=== PATIENT | female | born 1945 | race Caucasian/White ===

== ENCOUNTER 2020-07-06 04:44 | Observation (INO) ==
[2020-07-06] MEDS ORDERED: ALBUT/IPRATROP 3MG/0.5MG NEB 3 ML VIAL NEB STA (05:00)
--- NOTE | 2020-07-06 05:03 | Emergency Department Note ---
Impression & Plan Respiratory difficulty, Heart palpitations, Hypoxia ED Provider Note Name: WILLIAM HUERTAS Age: 75 Sex: F Arrives Via: Walk-In Informant: Patient ED Provider: Darrell Sifuentes MD Chief Complaint: Shortness of breath Impression: Respiratory Difficulty Palpations Hypoxia Medical Decision Makin yr old female with history idiopathic cardiomyopathy (recent EF 45%), LBBB, Hyperlipidemia, Ventricular Ectopy, Oleoarthrosis, IBS who arrives for evaluation of relatively rapidly worsening shortness of breath over the last evening. She has some diffuse wheezing and crackles on exam with HTN though sats OK on arrival. Given duoneb with mild improvement though still shortness of breath. CXR with diffuse infiltrate vs congestion vs scarring which is new from CXR 10 yrs ago. EKG with Bigeminy, no recent for comparison. Trop negative, labs with elevated BNP. Without fever/wbc elevation seem unlikely infectious, though cxr is concerning. No leg swelling nor weight gain, but cxr, elevated BNP and history would be concerning for acute chf. Consulted Hospitalist early in case given differential and fact she started becoming hypoxic though not significantly worsening shortness of breath. Will hold off on abx/lasix until hospitalist evaluation. Patient comfortable with this plan. Vague chest tightness without specific location and no definitive chest pain thus no asa at this time in setting normal troponin. Prior Medical Record and Triage/Nursing Notes reviewed by Me Additional history obtained from Epic record Differentials:Reactive airway disease, pneumonia, pneumothorax, COPD, CHF, infections, cardiac ischemia, pulmonary embolism, musculoskeletal, gastrointestinal, as well as other pathologies. Vital Signs: reviewed and remarkable for tachy Interventions: saline lock, duoneb Labs:Reviewed and remarkable for elevated BNP Imaging:X ray results are stated below per my interpretation: Chest: 1 view: Diffuse infiltrative disease vs congestive EKG:Per My Interpretation: Indication Shortness of breath: Sinus tach 111bpm with BiGeminy, qtc 500. LBBB on primary beat. No clear ischemia. No previous for comparison. Cardiac/Tele Monitoring: Cardiac Monitoring: An Order was placed for continuous cardiac monitoring. The monitor shows a rate of 110 with a Bigeminy rhythm. Consults:Dr Carleen Mccord Hospitalist Plan: Disposition: Hospitalization Condition: Good History of Present Illness:75 yr old female arrives for evaluation of shortness of breath. She notes history of CHF well controlled on no medications as well as frequent PVCs which she follows with cardiology for. Over the last day wor sening shortness of breath. Associated with diffuse chest tightness, cough, and wheezing. Notes that her heart seems to be racing more as well. Denies fevers, chills, syncope, nausea, vomiting, abdominal pain, leg swelling, calf pain, rashes, headache, nor other symptoms. She has not had symptoms like this previously. Denies history of CAD nor afib. No medications prior to arrival. Nothing seems to make better nor worse. ROS: See above HPI for pertinent positives & negatives. A total of 10 systems reviewed and were otherwise negative. Past Medical History:Cardiomyopathy, LBBB, Hyperlipidemia, Ventricular Ectopy, Oleoarthrosis, IBS Past Surgical History:none Family History:none Social History:Former Smoker Home Medications:See Below Allergies:Bee, iodine, sulfa, dpt vaccine, nickel Vitals:Blood Pressure: 177/84, Pulse 104, RR 18, T 36.5C, O2 98% on RA Physical Exam: GENERAL: Patient is very anxious appearing and in mild distress. EYES: No scleral icterus, unremarkable pupils. ENT: Mucous membranes moist, no nasal congestion. NECK: No masses appreciated, nomeningismus, trachea is midline. RESPIRATORY: Tachypnea/Dyspnea, diffuse tight lung sounds with wheezing and crackles. CARDIOVASCULAR: Tachy/irregular.No murmurs, rubs, gallops appreciated. GASTROINTESTINAL: Abdomen soft, non-tender, no peritonitis.Bowel sounds posit itz.No masses appreciated. BACK: No midline tenderness, no CVA tenderness EXTREMITIES: Normal motion all extremities, no cyanosis, no edema. NEUROLOGIC: Alert and oriented, no acute motor or sensory deficits, no focal weakness, cranial nerves grossly intact. SKIN: No rash, no jaundice, no diaphoresis. PSYCH: Appropriate GCS: 15 ED Course: Times/Reassessments: Mild improvement with nebulizer. Gradually worsening hypoxia though patient without significant symptoms while sitting in bed. Darrell Sifuentes MD Past Med/Surg History Social History Smoking Status: Former smoker Preferred Language: Serbian Feels Safe at Home: Yes Allergies Allergies Allergy/AdvReac Type Severity Reaction Status Date / Time bee venom protein (honey bee) Allergy Severe ANAPHYLAXIS Verified 08/14/14 07:19 Iodinated Contrast Media Allergy Unknown SOB,CRACKLI Verified 08/14/14 07:19 NG,WHEEZING Sulfa (Sulfonamide Allergy Unknown HIVES Verified 08/14/14 09:12 Antibiotics) Home Meds Home Medications Medication Instructions Recorded Confirmed Multivitamin 3 tab PO QAM #0 06/27/08 Carvedilol (Coreg *) 0.5 tab PO QAM #0 10/30/10 Lisinopril (Prinivil *) 2.5 mg PO BID #0 10/30/10 ASPIRIN (ASPIR-81) 81 mg PO QAM #0 08/02/14 CARVEDILOL (COREG) 3.125 mg PO HS #0 tab 08/02/14 Cyclosporine Oph 0.05% (Restasis 1 drp OPHTHALMIC (EYE) QPM #0 btl 08/02/14 Oph 0.05%) EPINEPHRINE (EPIPEN 2-REYNALDO) 1 dose SC PRN PRN #0 08/02/14 FEXOFENADINE HCL (JAYRO) 180 mg PO QAM #0 tab 08/02/14 Gabapentin (Neurontin) 300 mg PO TID #0 cap 08/02/14 HYDROCORTISONE ACETATE (RECTAL 25 mg MA BID PRN #7 sup 08/02/14 (ANUSOL-HC) MAGNESIUM OXIDE (MG SUPPLEMENT 400 mg PO QAM #0 08/02/14 (MAGNESIUM OXIDE) METRONIDAZOLE (TOPICAL) 1 dose TOPICAL DAILY PRN #0 08/02/14 (METROCREAM) OMEPRAZOLE (PRILOSEC) 20 mg PO BID #0 cap 08/02/14 PROGESTERONE CR 1 dose TOPICAL QPM #0 08/02/14 Results & Data (ED) Vital Signs Vital Signs - 24 hr 07/06/20 04:47 07/06/20 05:09 07/06/20 05:11 Temperature 36.5 C Temperature Source Temporal Artery Scan Pulse Rate 104 H 105 H Pulse Rate [Apical] 108 H Pulse Rate from SpO2 Sensor 107 H Respiratory Rate 18 22 22 Respiratory Effort / Characteristics Non-Labored Spontaneous Respiratory Depth Normal Blood Pressure 177/84 H 167/98 H Blood Pressure Mean 115 121 Pulse Oximetry 98 94 96 Oxygen Delivery Method Room Air Room Air Room Air Sepsis Recent Fever Within 48 Hours No Sepsis New/Unexplained Change in Mental Status N/A Sepsis Action Taken by Nursing No Action Required 07/06/20 05:24 07/06/20 05:30 07/06/20 06:00 Temperature Temperature Source Pulse Rate 107 H 115 H Pulse Rate [Apical] Pulse Rate from SpO2 Sensor 110 H 120 H Respiratory Rate 20 16 Respiratory Effort / Characteristics Respiratory Depth Blood Pressure 161/114 H 160/101 H Blood Pressure Mean 129 120 Pulse Oximetry 93 90 86 L Oxygen Delivery Method Room Air Sepsis Recent Fever Within 48 Hours Sepsis New/Unexplained Change in Mental Status Sepsis Action Taken by Nursing Laboratory Data Result diagrams: 07/06/20 05:01 07/06/20 05:05 Lab Results 07/06/20 07/06/20 07/06/20 Range/Units 05:01 05:01 05:05 WBC 5.46 (4.8-10.8) K/uL RBC 4.49 (4.2-5.4) M/uL Hgb 14.2 (12.0-16.0) g/dL Hct 42.3 (37-47) % MCV 94.2 (80-100) fL MCH 31.6 (25-34) pg MCHC 33.6 (32-36) g/dL RDW Std Deviation 45.8 (36.4-46.3) fL RDW Coeff of Heena 13.3 (11.5-14.5) % Plt Count 173 (130-400) K/uL MPV 10.9 H (7.4-10.4) fL Immature Gran % (Auto) 0.2 % Neut % (Auto) 52.0 % Lymph % (Auto) 38.1 % Bowman % (Auto) 7.1 % Eos % (Auto) 2.4 % Baso % (Auto) 0.2 % Neut # (Auto) 2.84 (1.4-6.5) K/uL Lymph # (Auto) 2.08 (1.2-3.4) K/uL Bowman # (Auto) 0.39 (0.11-0.59) K/uL Eos # (Auto) 0.13 (0-0.5) K/uL Baso # (Auto) 0.01 (0-0.2) K/uL Immature Gran # (Auto) 0.01 (0.00-0.02) K/uL D-Dimer 400 (0-500) ug/L FEU Sodium 138 (136-145) mmol/L Potassium 3.8 (3.5-5.1) mmol/L Chloride 107 (98-107) mmol/L Carbon Dioxide 27 (21-32) mmol/L Anion Gap 4.0 (3-11) BUN 21 H (7-18) mg/dl Creatinine 0.87 (0.6-1.2) mg/dl Est Cr Clr Drug Dosing 41.2 ml/min Est GFR ( Amer) 75.0 ml/min Est GFR (Non-Af Amer) 64.7 ml/min BUN/Creatinine Ratio 24.1 H (10-20) Glucose 108 H (70-99) mg/dl Calcium 9.2 (8.5-10.1) mg/dl Magnesium 2.3 (1.8-2.4) mg/dl Total Bilirubin 0.6 (0.2-1) mg/dl Direct Bilirubin 0.2 (0-0.2) mg/dl AST 26 (15-37) U/L ALT 42 (12-78) U/L Alkaline Phosphatase 86 (45-117) U/L Troponin I 0.016 (0-0.045) ng/ml NT-Pro-B Natriuret Pep 4097 H (0-1800) pg/ml Total Protein 7.5 (6.4-8.2) gm/dl Albumin 3.9 (3.4-5.0) gm/dl TSH 4.350 (0.300-4.500) uIu/ml COVID-19 Eval Order SARS-CoV-2 (PCR) (Negative) 07/06/20 07/06/20 Range/Units 05:07 05:07 WBC (4.8-10.8) K/uL RBC (4.2-5.4) M/uL Hgb (12.0-16.0) g/dL Hct (37-47) % MCV (80-100) fL MCH (25-34) pg MCHC (32-36) g/dL RDW Std Deviation (36.4-46.3) fL RDW Coeff of Heena (11.5-14.5) % Plt Count (130-400) K/uL MPV (7.4-10.4) fL Immature Gran % (Auto) % Neut % (Auto) % Lymph % (Auto) % Bowman % (Auto) % Eos % (Auto) % Baso % (Auto) % Neut # (Auto) (1.4-6.5) K/uL Lymph # (Auto) (1.2-3.4) K/uL Bowman # (Auto) (0.11-0.59) K/uL Eos # (Auto) (0-0.5) K/uL Baso # (Auto) (0-0.2) K/uL Immature Gran # (Auto) (0.00-0.02) K/uL D-Dimer (0-500) ug/L FEU Sodium (136-145) mmol/L Potassium (3.5-5.1) mmol/L Chloride (98-107) mmol/L Carbon Dioxide (21-32) mmol/L Anion Gap (3-11) BUN (7-18) mg/dl Creatinine (0.6-1.2) mg/dl Est Cr Clr Drug Dosing ml/min Est GFR ( Amer) ml/min Est GFR (Non-Af Amer) ml/min BUN/Creatinine Ratio (10-20) Glucose (70-99) mg/dl Calcium (8.5-10.1) mg/dl Magnesium (1.8-2.4) mg/dl Total Bilirubin (0.2-1) mg/dl Direct Bilirubin (0-0.2) mg/dl AST (15-37) U/L ALT (12-78) U/L Alkaline Phosphatase (45-117) U/L Troponin I (0-0.045) ng/ml NT-Pro-B Natriuret Pep (0-1800) pg/ml Total Protein (6.4-8.2) gm/dl Albumin (3.4-5.0) gm/dl TSH (0.300-4.500) uIu/ml COVID-19 Eval Order Covid19 at [facility] SARS-CoV-2 (PCR) NEGATIVE (Negative) Administered Medications Discontinued Medications Albuterol (Albut/Ipratrop 3mg/0.5mg Neb 3 Ml Vial) 3 ml NEB NOW STA Stop: 07/06/20 05:01 Last Admin: 07/06/20 05:09 Dose: 3 ml Documented by: [id number] Imaging Data Radiologist's Impression: Chest X-Ray 07/06/20 05:01 XR chest 1V portable HISTORY: 75 years-old Female shob acute shortness of breath COMPARISON: Chest radiograph 10/30/2020 TECHNIQUE: Portable AP view the chest FINDINGS: Nipple shadows project over the lung bases. Cardiac silhouette is upper limits of normal in size. Calcified plaque of the thoracic aorta. No pneumothorax, large pleural effusion. Reticular interstitial opacities are noted in addition to ill-defined bibasilar and right midlung airspace opacities. Degenerative changes of the shoulders and spine. IMPRESSION: Right greater than left interstitial predominant opacities are suggestive of asymmetric pulmonary edema versus interstitial pneumonitis. ACT 112: Negative or not required by law. The above report was generated using voice recognition software. It may contain grammatical, syntax or spelling errors. Electronically signed by: James Floyd M.D. 07/06/2020 6:37 AM Discharge Plan Visit Data Chief Complaint: Cardiac Assessment Stated Complaint: HEART RACING, SOB ED Provider: Darrell Sifuentes Discharge Problem: Respiratory difficulty, Heart palpitations, Hypoxia Forms Stand Alone Forms: [facility] [place] Prescriptions Prescriptions: No Action Multivitamin tablet 3 tab PO QAM Qty: 0 RF: 0 Carvedilol (Coreg *) 3.125 MG tablet 0.5 tab PO QAM Qty: 0 RF: 0 Lisinopril (Prinivil *) 2.5 MG tablet 2.5 mg PO BID Qty: 0 RF: 0 ASPIRIN (ASPIR-81) 81 MG tablet 81 mg PO QAM Qty: 0 RF: 0 CARVEDILOL (COREG) 3.125 MG tablet 3.125 mg PO HS Qty: 0 RF: 0 Cyclosporine Oph 0.05% (Restasis Oph 0.05%) emulsion 1 drp ophthalmic (eye) QPM Qty: 0 RF: 0 EPINEPHRINE (EPIPEN 2-REYNALDO) 0.3 MG INJECTION 1 dose SC PRN PRN (Reason: UD) Qty: 0 RF: 0 FEXOFENADINE HCL (JAYRO) 180 MG tablet 180 mg PO QAM Qty: 0 RF: 0 Gabapentin (Neurontin) 300 MG capsule 300 mg PO TID Qty: 0 RF: 0 HYDROCORTISONE ACETATE (RECTAL (ANUSOL-HC) 25 MG SUP 25 mg MA BID PRN (Reason: PRN) Qty: 7 RF: 0 MAGNESIUM OXIDE (MG SUPPLEMENT (MAGNESIUM OXIDE) 400 MG tablet 400 mg PO QAM Qty: 0 RF: 0 METRONIDAZOLE (TOPICAL) (METROCREAM) 0.75 % CRE 1 dose Topical DAILY PRN (Reason: P) Qty: 0 RF: 0 OMEPRAZOLE (PRILOSEC) 20 MG CONTR REL CAP 20 mg PO BID Qty: 0 RF: 0 PROGESTERONE CR 1 dose Topical QPM Qty: 0 RF: 0
[2020-07-06 05:27] LABS: Basophils # (auto) 0.01 K/uL (0-0.2); Basophils % (auto) 0.2 %; Eosinophils # (auto) 0.13 K/uL (0-0.5); Eosinophils % (auto) 2.4 %; Hematocrit (blood only) 42.3 % (37-47); Hemoglobin 14.2 g/dL (12.0-16.0); Immature Granulocytes # (auto) 0.01 K/uL (0.00-0.02); Immature Granulocytes % (auto) 0.2 %; Lymphocytes # (auto) 2.08 K/uL (1.2-3.4); Lymphocytes % (auto) 38.1 %; Mean Corpuscular Hemoglobin 31.6 pg (25-34); Mean Corpuscular Hgb Conc 33.6 g/dL (32-36); Mean Corpuscular Volume 94.2 fL (80-100); Mean Platelet Volume 10.9 fL (7.4-10.4); Monocytes # (auto) 0.39 K/uL (0.11-0.59); Monocytes % (auto) 7.1 %; Neutrophils # (auto) 2.84 K/uL (1.4-6.5); Platelet Count 173 K/uL (130-400); RDW Coefficient of Variation 13.3 % (11.5-14.5); RDW Standard Deviation 45.8 fL (36.4-46.3); Red Blood Count 4.49 M/uL (4.2-5.4); White Blood Count 5.46 K/uL (4.8-10.8)
[2020-07-06 05:36] LABS: D Dimer 400 ug/L FEU (0-500)
[2020-07-06 05:46] LABS: Albumin Level 3.9 gm/dl (3.4-5.0); BUN Creatinine Ratio 24.1 (10-20); Bilirubin Direct 0.2 mg/dl (0-0.2); Calcium 9.2 mg/dl (8.5-10.1); Creatinine Clr Calc Pharmacy 41.2 ml/min; Est GFR (Non-African American) 64.7 ml/min; Magnesium 2.3 mg/dl (1.8-2.4); Potassium 3.8 mmol/L (3.5-5.1)
[2020-07-06 05:57] LABS: Bilirubin,Total 0.6 mg/dl (0.2-1); Thyroid Stimulating Hormone 4.35 uIu/ml (0.300-4.500); Total Protein 7.5 gm/dl (6.4-8.2); Troponin I 0.016 ng/ml (0-0.045)
--- NOTE | 2020-07-06 06:39 | XRay Report ---
XR chest 1V portable HISTORY: 75 years-old Female shob acute shortness of breath COMPARISON: Chest radiograph 10/30/2020 TECHNIQUE: Portable AP view the chest FINDINGS: Nipple shadows project over the lung bases. Cardiac silhouette is upper limits of normal in size. Clint cified plaque of the thoracic aorta. No pneumothorax, large pleural effusion. Reticular interstitial opacities are noted in addition to ill-defined bibasilar and right midlung airspace opacities. Degene rative changes of the shoulders and spine. IMPRESSION: Right greater than left interstitial predominant opacities are suggestive of asymmetric p ulmonary edema versus interstitial pneumonitis. ACT 112: Negative or not required by law. The above report was generated using voice recognition software. It may contain grammatical, syntax o r spelling errors. Electronically signed by: James Floyd M.D. 07/06/2020 6:37 AM
[2020-07-06] MEDS ORDERED: FUROSEMIDE 40 MG/4 ML VIAL IV STA (06:41)
[2020-07-06] MEDS ORDERED: metroNIDAZOLE 0.75% TOPICAL GEL 45 GM TUBE TOP PRN (07:55)
[2020-07-06] MEDS ORDERED: NITROGLYCERIN SL 0.4 MG/TAB TAB SL PRN (08:00)
[2020-07-06] MEDS ORDERED: LEVALBUTEROL HCL 1.25 MG/3 ML NEB NEB PRN (08:00)
[2020-07-06] MEDS ORDERED: XOPENEX/ATROVENT 1.25mg/0.5MG NEB COMBO NEB SCH (08:00)
[2020-07-06] MEDS ORDERED: LEVALBUTEROL 1.25MG/0.5ML NEB INH SCH (08:00)
[2020-07-06] MEDS ORDERED: IPRATROPIUM BROMIDE NEB SOLN 0.02% 2.5 ML VIAL INH SCH (08:00)
--- NOTE | 2020-07-06 08:07 | History and Physical Report ---
DATE OF ADMISSION: 07/06/2020 CHIEF COMPLAINT: Shortness of breath and cough. HISTORY OF PRESENT ILLNESS: This is a 75-year-old female with past medical history significant for hyperlipidemia, deviated nasal septum, idiopathic cardiomyopathy, left bundle branch block, bradycardia, irritable bowel syndrome, menopause, general osteoarthrosis, low back pain, history of tobacco use, comes with sudden onset of shortness of breath tonight. The patient says she is wheezing for a couple of days and tonight, she started to have dry cough and shortness of breath. She could not sleep with coughing. She has had some chest discomfort attributes to coughing. Denies any fever or chills. No nausea, no headache, no blurred vision, no earache, no runny nose, no sore throat. Appetite is okay. No abdominal pain. Normal bowel and bladder movements. No diarrhea, no swelling in the legs. Lives alone. No fevers. The patient is done with her COVID shots. ALLERGIES: BEE STINGS, IODINATED DIAGNOSTIC AGENTS, NICKEL, SULFA ANTIBIOTICS, DIPHTHERIA TOXOID-CONTAINING VACCINES. PAST MEDICAL HISTORY: As mentioned above. PAST SURGICAL HISTORY: Colonoscopy, EGD with endoscopic ultrasound, injection of lumbosacral spine, injection of eye drug, laparoscopic cholecystectomy, bilateral cataract surgery, bilateral revision of upper eyelid. MEDICATIONS: The patient is on gabapentin 300 mg p.o. q.i.d., metronidazole 0.75 external cream applied to face daily for rosacea, lisinopril 2.5 mg p.o. b.i.d., omeprazole 20 mg p.o. daily, Lotemax 0.5% gel instilled 1 drop in both eyes b.i.d., aspirin enteric coated 81 mg p.o. daily, EpiPen p.r.n., progesterone cream applied daily, Trina 180 mg 2 tablets daily, magnesium oxide 400 mg p.o. daily, multivitamins daily. FAMILY HISTORY: Significant for mother of aplastic anemia at age of 82, father had diabetes. Mother had heart disorder and macular degeneration. SOCIAL HISTORY: Single. Former smoker, quit in 2007, smoked 1/2 pack a day for 30 years. No alcohol use, no drug use. REVIEW OF SYMPTOMS: As per HPI. Rest of review of systems negative. PHYSICAL EXAMINATION: GENERAL: The patient is of moderate build, not in acute distress. VITAL SIGNS: Temperature 36.5, pulse 115, respiratory rate 16, blood pressure 160/101, oxygen 86%-90% on room air. HEENT: Pupils equal, round, reactive to light. Oral mucosa dry. NECK: No JVD, no neck masses. CARDIOVASCULAR: S1, S2 heard, regular rate and rhythm, no murmur, no gallop. RESPIRATORY SYSTEM: Normal AP diameter. No accessory muscle use. Bilateral fine crackles and rhonchi heard. ABDOMEN: Soft, bowel sounds present, nontender. No distention. CENTRAL NERVOUS SYSTEM: Cranial nerves II through XII grossly intact, nonfocal. EXTREMITIES: No edema, no erythema. LABORATORY DATA: WBC 5.4, hemoglobin 14.2, hematocrit 42.3, platelets 173. D-dimer 400. Sodium 138, potassium 3.8, chloride 107, bicarbonate 27, BUN 21, creatinine 0.8, serum glucose 108, calcium 9.2, magnesium 2.3, total bilirubin 0.6, direct bilirubin 0.2, AST 76, ALT 42, alkaline phosphatase 86. Troponin I of 0.016, BNP 4097. TSH 4.35. SARS-CoV-2 PCR negative. Chest x-ray: Right greater than left interstitial predominant opacities suggestive of asymmetric pulmonary edema versus interstitial pneumonitis. EKG, poor quality, interpretation: Sinus tachycardia with frequent PVCs in a pattern of bigeminy at a rate of 111, biatrial enlargement, left bundle branch block, QTc of 500. ASSESSMENT AND PLAN: This is a 75-year-old female who presents with shortness of breath and cough. 1. Shortness of breath. The patient has a history of idiopathic cardiomyopathy, ejection fraction of around 45% on an echocardiogram of 06/28/2019, some crackles on exam, though no edema in the legs. BNP is elevated, possibly acute on chronic systolic congestive heart failure. We will give a dose of IV Lasix. Intakes and outputs, daily weights, monitor in telemetry floor. Follow echocardiogram, consult cardiology for further recommendations. Continue her home lisinopril. 2. Possible acute bronchitis with cough and possible pneumonitis with ongoing cough. We will empirically start her Rocephin and doxycycline and nebulizers. The patient has a history of smoking in the past. Prednisone 40 mg daily for a short course and nebulizers and monitor. 3. History of left bundle branch block. 4. Gastroesophageal reflux disease. Continue omeprazole. 5. History of chronic back pain. Physical therapy and occupational therapy prior to discharge. Social service. 6. History of hypertension, on lisinopril. 7. Deep vein thrombosis prophylaxis. Will place her on heparin subcutaneously. 8. Disposition: Admit to tele floor. Expect discharge home and follow with family doctor. Social service to help with discharge planning. Level 1, full code. MTDD
--- NOTE | 2020-07-06 08:34 | Hospitalist Progress Note ---
Date of Service July 06, 2020 Assessment & Plan Admission and Anticipated Discharge Date Admission Date: July 06, 2020 Subjective Chest discomfort. Mostly from coughing.Ekg poor quality. follow repeat ekg and troponin and echo. Cardiology consulted. Prolonged QTc 500. avoid Qt prolonging drugs. Follow repeat ekg. Results & Data Results & Data ([facility]) Vital Signs (Past 12 Hours) Vital Signs Temp Pulse Pulse Resp BP BP Pulse Ox 07/06/20 08:02 36.8 C 89 18 136/88 96 07/06/20 07:01 101 H 19 134/104 H 93 07/06/20 06:00 115 H 16 160/101 H 86 L 07/06/20 05:30 107 H 20 161/114 H 90 07/06/20 05:24 93 07/06/20 05:11 108 H 22 96 07/06/20 05:09 105 H 22 167/98 H 94 07/06/20 04:47 36.5 C 104 H 18 177/84 H 98
[2020-07-06] MEDS ORDERED: CARBOXYMETHYLCELLULOSE SODIUM 1% OPB SCH (09:00)
[2020-07-06] MEDS ORDERED: ASPIRIN 81 MG PO SCH (09:00)
[2020-07-06] MEDS ORDERED: [UNRECOGNIZED DRUG - OTHER] OPB SCH (09:00)
[2020-07-06] MEDS: GABAPENTIN 100 MG CAP PO SCH ×3 (10:27→17:16)
[2020-07-06] MEDS: PANTOprazole 40 MG TAB PO SCH (10:28)
[2020-07-06] MEDS: ASPIRIN 81 MG ECTAB PO SCH (10:28)
[2020-07-06] MEDS: DOXYCYCLINE HYCLATE 100 MG CAP PO SCH ×2 (10:29→21:28)
[2020-07-06] MEDS: lisinopril 2.5 MG TAB PO SCH ×2 (10:29→21:28)
[2020-07-06] MEDS: predniSONE 20 MG TAB PO SCH ×2 (10:29→10:33)
[2020-07-06] MEDS: ARTIFICIAL TEARS OP SCH (10:30)
[2020-07-06] MEDS: cefTRIAXone SODIUM 1,000 MG in DEXTROSE 5% 50 ML IV SCH (10:31)
[2020-07-06] MEDS: HEPARIN SOD 5,000 UNIT/0.5 ML VIAL SQ SCH ×2 (10:32→21:27)
--- NOTE | 2020-07-06 14:58 | Cardiology Consultation ---
Date of Consultation July 06, 2020 Assessment & Plan (1) Acute HFrEF (heart failure with reduced ejection fraction): (2) Non-ischemic cardiomyopathy: (3) Left bundle branch block (LBBB): (4) Frequent unifocal PVCs: Patient had described relatively stable cardiac signs and symptoms even 2 days ago. She became acutely ill with subjective palpitations, worsening shortness of breath, wheezing, transient hypoxia (pulse oximetry 86%) noted on arrival. Evaluation thus far has revealed chronic left bundle branch block, very frequent premature ventricular contractions, and moderate to severe left ventricular systolic dysfunction with mild left ventricular chamber dilatation, LVEF 30-34% (perhaps worse, difficult to assess due to technical limitations related to PVCs). Screening D-dimer was negative, TSH within normal limits, electrolytes within normal limits. Troponin minimally elevated with second measurement of 0.112 NG per mL, no ongoing symptoms to suggest acute coronary syndrome. Third troponin measurement to be drawn soon. Patient with longstanding history of left bundle branch block and PVCs, initially diagnosed in 2008 with normal coronary arteries on cardiac catheterization at that time. She has been intolerant of medications due to bradycardia, generalized fatigue. I discussed with her options such as trying low-dose metoprolol succinate, perhaps 12.5 mg daily for PVC suppression and/or low-dose amiodarone. She is already on low-dose lisinopril on a chronic basis, however only able to tolerate minimal dose. Patient is going to think about trying the medications. At present, will add furosemide 20 mg p.o. daily to her prior to hospital treatment with lisinopril. Continue aspirin. Await third troponin. We discussed future considerations such as EP consultation for consideration of cardiac resynchronization capable device/ICD. She has concerns that given her slender body habitus that her body would not be able to accommodate a device the size of an ICD. I counseled her that such devices are frequently implanted in patients of her stature. With regards to treatment for bronchitis/pneumonia. I think the based on her echocardiogram results, that her presentation may likely be explained on a cardiac basis. History of Present Illness Attending Physician: Vira Solitario MD History of Present Illness Katy Davis is a 75 year old female seen in cardiology consultation per the request of Dr. Durant for the evaluation of congestive heart failure, left bundle branch block, and frequent unifocal premature ventricular contractions. The patient's primary chili powder mixer is Dr. Lopez of our practice. She is actually been seen in outpatient follow-up on 07/04/20, and described that she had been feeling well. In the meantime however overnight last night she developed onset of severe palpitations and shortness of breath and felt like she was wheezing. On arrival to the emergency room she was found to have sinus rhythm with a left bundle branch block (chronic finding) and very frequent premature ventricular contractions. Her proBNP level was elevated, chest x-ray suggestive of interstitial edema, and she received 40 mg of IV furosemide with an interval improvement in her symptoms. Overnight last night, sinus rhythm with frequent PVCs noted on telemetry, she has frequent PVC runs. She denies any lightheadedness, dizziness or syncope. She notes that she has not been exercising as much as usual related to COVID-19. Per review of her record, her cardiac history dates back to initial inpatient co nsultation performed at [facility] by Dr Lopez in Jun, 2008 when she presented with congestive heart failure, left bundle branch block, and ejection fraction in the range of 15 to 20% at that time. She underwent cardiac catheterization during that hospital stay with angiographically normal coronaries per procedure report which I found in the [facility] electronic record. Per review of her record, past medical therapy dating back to 2008 has included trials of digoxin and carvedilol which the patient describes were ultimately not tolerated due to subjective fatigue and bradycardia. Her ejection fraction however had improved over time with most recent measurement in Jun, 2019 by echocardiogram of 44% at [facility]. Echocardiogram however performed today reveals abnormal septal motion consistent with left bundle branch block, with moderate to severe global left ventricular hypokinesis otherwise, LVEF of 30-34%, with mild dilatation of the left ventricular chamber size. On some views, the ejection fraction looks worse than 30%. Mild mitral regurgitation ,mild tricuspid regurgitation are present. Allergies Allergy/AdvReac Type Severity Reaction Status Date / Time bee venom protein (honey bee) Allergy Severe ANAPHYLAXIS Verified 07/06/20 07:42 Iodinated Contrast Media Allergy Unknown SOB,CRACKLI Verified 07/06/20 07:42 NG,WHEEZING Sulfa (Sulfonamide Allergy Unknown HIVES Verified 07/06/20 07:42 Antibiotics) Home Medications Medication Instructions Recorded Confirmed Type aspirin [Aspir-81] 81 mg PO QAM 07/06/20 07/06/20 History carboxymethylcellulose sodium 1 drp OPB QAM 07/06/20 07/06/20 History [Refresh Liquigel] gabapentin See Rx Instructions .ROUTE .COMPLEX 07/06/20 07/06/20 History lisinopril 2.5 mg PO BID 07/06/20 07/06/20 History loteprednol etabonate [Lotemax] 1 drp OPB HS 07/06/20 07/06/20 History omeprazole 20 mg PO QAM 07/06/20 07/06/20 History Patient History Social History Smoking Status: Former smoker Hx Alcohol Use: No Hx Substance Use: No Preferred Language: Jamaican Communication Ability: Effective Childcare Center Director Required: No Beliefs That Will Affect Care: Ep[employer]opalian Current Living Situation: Alone Current Living Situation Comment: 2 story home Other Information That Helps Us Care for You: Yes (trouble with automatic bp machines) Feels Safe at Home: Yes Safety Concerns: Feels Safe At This Time Assistive Devices: Glasses Review of Systems Review of Systems: All systems reviewed & are unremarkable except as noted in HPI & below Physical Exam Physical Exam: Temp Pulse Resp BP Pulse Ox 36.6 C 57 L 18 135/69 96 07/06/20 11:20 07/06/20 11:20 07/06/20 11:20 07/06/20 11:20 07/06/20 11:20 Constitutional: WD/WN, vitals as above Respiratory: Auscultation: + crackles (Mild crackles at the bases); no rales, no rhonchi and no wheezes Cardiovascular: Rate/Rhythm: regular rhythm (Regular rhythm with frequent ectopy) Heart Sounds: no murmur Vessels: no JVD Extremities: no edema Gastrointestinal (Abdomen): normal bowel sounds, soft, nontender, no he patosplenomegaly Skin: no rashes, warm and dry Neurologic: PERRL, EOMI, accommodation nl, no face palsy, no dysarthria Results & Data ([facility]) Vital Signs (Past 12 Hours) Vital Signs Temp Pulse Pulse Resp BP BP Pulse Ox 07/06/20 11:20 36.6 C 57 L 18 135/69 96 07/06/20 08:02 36.8 C 89 18 136/88 96 05/14/21 08:00 36.8 C 84 77 18 134/88 94 07/06/20 07:01 101 H 19 134/104 H 93 07/06/20 06:00 115 H 16 160/101 H 86 L 07/06/20 05:30 107 H 20 161/114 H 90 07/06/20 05:24 93 07/06/20 05:11 108 H 22 96 07/06/20 05:09 105 H 22 167/98 H 94 07/06/20 04:47 36.5 C 104 H 18 177/84 H 98 Pulse Ox 07/06/20 11:20 07/06/20 08:02 07/06/20 08:00 94 07/06/20 07:01 07/06/20 06:00 07/06/20 05:30 07/06/20 05:24 07/06/20 05:11 07/06/20 05:09 07/06/20 04:47 Laboratory Results Cardiac Enzymes 07/06/20 07/06/20 Range/Units 05:05 08:50 AST 26 (15-37) U/L Troponin I 0.016 0.112 H* (0-0.045) ng/ml CBC 07/06/20 Range/Units 05:01 WBC 5.46 (4.8-10.8) K/uL RBC 4.49 (4.2-5.4) M/uL Hgb 14.2 (12.0-16.0) g/dL Hct 42.3 (37-47) % Plt Count 173 (130-400) K/uL Neut # (Auto) 2.84 (1.4-6.5) K/uL Lymph # (Auto) 2.08 (1.2-3.4) K/uL Adams # (Auto) 0.39 (0.11-0.59) K/uL Eos # (Auto) 0.13 (0-0.5) K/uL Baso # (Auto) 0.01 (0-0.2) K/uL Comprehensive Metabolic Panel 07/06/20 Range/Units 05:05 Sodium 138 (136-145) mmol/L Potassium 3.8 (3.5-5.1) mmol/L Chloride 107 (98-107) mmol/L Carbon Dioxide 27 (21-32) mmol/L BUN 21 H (7-18) mg/dl Creatinine 0.87 (0.6-1.2) mg/dl Glucose 108 H (70-99) mg/dl Calcium 9.2 (8.5-10.1) mg/dl Direct Bilirubin 0.2 (0-0.2) mg/dl AST 26 (15-37) U/L ALT 42 (12-78) U/L Alkaline Phosphatase 86 (45-117) U/L Total Protein 7.5 (6.4-8.2) gm/dl Albumin 3.9 (3.4-5.0) gm/dl Intake and Output 07/05/20 07/06/20 07/06/20 22:59 06:59 14:59 Intake Total 530 / 530 Output Total 1000 / 1000 Balance -470 / -470 Intake: IV 50 / 50 cefTRIAXone SODIUM 1,000 mg In 50 / 50 Dextrose 5% 50 ml @ 100 mls/hr IV Q24H [facility] Rx#:[id number] Oral 480 / 480 Output: Urine 1000 / 1000 Other: Weight 47.4 kg 47.4 kg Weight Measurement Method Chair Scale Built in [facility] Patient Weight 07/07/20 06:59 Weight 47.4 kg Diagnostic Findings EKG performed 07/06/20 at 4:54 AM revealed sinus tachycardia with left bundle branch block and frequent PVCs in a pattern of bigeminy. Repeat EKG performed 07/06/20 revealed sinus rhythm at 95 bpm, with occasional PVCs, but less frequent than previously noted.
[2020-07-06] MEDS: ACETAMINOPHEN 325 MG TAB PO PRN (20:45)
[2020-07-06] MEDS ORDERED: GABAPENTIN 100 MG CAP PO SCH ×2 (21:00→21:15)
[2020-07-07] MEDS: ACETAMINOPHEN 325 MG TAB PO PRN (01:59)
[2020-07-07] MEDS ORDERED: GABAPENTIN 400 MG CAP PO STA (02:11)
[2020-07-07 05:30] LABS: Eosinophils # (auto) 0.01 K/uL (0-0.5); Eosinophils % (auto) 0.2 %; Hematocrit (blood only) 36.6 % (37-47); Hemoglobin 12.6 g/dL (12.0-16.0); Immature Granulocytes # (auto) 0.01 K/uL (0.00-0.02); Immature Granulocytes % (auto) 0.2 %; Lymphocytes # (auto) 1.14 K/uL (1.2-3.4); Lymphocytes % (auto) 20.2 %; Mean Corpuscular Hemoglobin 32.1 pg (25-34); Mean Corpuscular Hgb Conc 34.4 g/dL (32-36); Mean Corpuscular Volume 93.1 fL (80-100); Mean Platelet Volume 10.7 fL (7.4-10.4); Monocytes % (auto) 8.9 %; Neutrophils # (auto) 3.97 K/uL (1.4-6.5); Neutrophils % (auto) 70.5 %; Platelet Count 158 K/uL (130-400); RDW Standard Deviation 44.7 fL (36.4-46.3); Red Blood Count 3.93 M/uL (4.2-5.4); White Blood Count 5.63 K/uL (4.8-10.8)
[2020-07-07 05:50] LABS: BUN Creatinine Ratio 31.7 (10-20); Creatinine Clr Calc Pharmacy 41.7 ml/min; Est GFR (African American) 79.4 ml/min; Est GFR (Non-African American) 68.5 ml/min; Potassium 3.6 mmol/L (3.5-5.1)
--- NOTE | 2020-07-07 05:53 | Electrocardiogram Report ---
Test Reason : Blood Pressure : / mmHG Vent. Rate : 111 BPM Atrial Rate : 111 BPM P-R Int : 166 ms QRS Dur : 128 ms QT Int : 368 ms P-R-T Axes : 069 030 098 degrees QTc Int : 500 ms Poor data quality, interpretation may be adversely affected Sinus tachycardia with frequent Premature ventricular complexes in a pattern of bigeminy Biatrial enlargement Left bundle branch block Abnormal ECG When compared with ECG of 30-OCT-2010 02:39, Premature ventricular complexes are now Present Vent. rate has increased BY 53 BPM Confirmed by Xu Shirley ([id number]) on 07/07/2020 5:53:10 AM Referred By: REFERRED SELF Confirmed By:Xu Shirley
[2020-07-07 06:03] LABS: Troponin I 0.103 ng/ml (0-0.045)
--- NOTE | 2020-07-07 06:09 | Electrocardiogram Report ---
Test Reason : Blood Pressure : / mmHG Vent. Rate : 095 BPM Atrial Rate : 095 BPM P-R Int : 174 ms QRS Dur : 132 ms QT Int : 440 ms P-R-T Axes : 073 -24 098 degrees QTc Int : 552 ms Sinus rhythm with frequent Premature ventricular complexes Biatrial enlargement Left bundle branch block Abnormal ECG When compared with ECG of 06-JUL-2020 04:54, No significant change was found Confirmed by Xu Shirley ([id number]) on 07/07/2020 6:09:01 AM Referred By: REFERRED SELF Confirmed By:Xu Shirley
[2020-07-07] MEDS ORDERED: POTASSIUM CHLORIDE CRTAB 20 MEQ TABCR PO STA (07:41)
--- NOTE | 2020-07-07 07:41 | Hospitalist Progress Note ---
Date of Service July 07, 2020 Assessment & Plan (1) Acute HFrEF (heart failure with reduced ejection fraction): (2) Non-ischemic cardiomyopathy: (3) Left bundle branch block (LBBB): (4) Frequent unifocal PVCs: This is a 75-year-old female who presents with shortness of breath and cough. 1. Secondary to acute heart failure with reduced ejection fraction, frequent PVCs 1. Shortness of breath. The patient has a history of idiopathic cardiomyopathy, ejection fraction of around 45% on an echocardiogram of 06/28/2019, some crackles on exam on admission, though no edema in the legs. BNP is elevated Received IV Lasix on admission. Intakes and outputs, daily weights, monitor in telemetry floor. Echocardiogram obtained -sinus rhythm with left bundle branch block and very frequent PVCs present during the echocardiogram. LV is mildly dilated. This septal motion is abnormal consistent with a left bundle branch block. Moderate diffuse LV hypokinesis is otherwise present. LV systolic function is moderately reduced. LV EF 30 to 34%, however in some views the EF appears worse than this depending upon frequency of the PVCs. The RV is normal in size and function. LA is mildly dilated. There is mild MR. There is mild TR. Pulmonary artery systolic pressure is estimated to be 35 to 40 mmHg, mildly increased. Compared to the most recent available outpatient echocardiogram, there has been interval decline in the LVEF, frequent PVCs now noted Cardiology consulted for further recommendations. - Had lengthy discussion with the patient, in agreement to continue lisinopril, add p.o. furosemide, and small dose of metoprolol 12.5 twice daily. Close follow-up with cardiology also to be arranged. Previously patient did not tolerate Coreg well. She would also like to avoid amiodarone. Discussed biventricular ICD, at this time patient would not like to proceed with any procedures. 2. Possible acute bronchitis with cough and possible pneumonitis with ongoing cough -believed on admission, however patient's symptoms seem to be secondary to above (acute HF) Empirically started on Rocephin and doxycycline and nebulizers. The patient has a history of smoking in the past. Prednisone 40 mg daily for a short course and nebulizers and monitor. Will stop antibiotics and prednisone now. 3. History of left bundle branch block. Cardio consulted, as above. 4. Gastroesophageal reflux disease. Continue omeprazole. 5. History of hypertension, on lisinopril. Addition of furosemide and metoprolol, as above DVT ppx. 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 Full code. Admission and Anticipated Discharge Date Admission Date: July 06, 2020 Subjective Patient seen in follow-up of palpitations, shortness of breath, due to frequent PVCs and CHF exacerbation Currently she is lying in bed, feeling much better, denies any palpitations, shortness of breath or chest pain Also denies any dizziness, and is inquiring about going home Seen by cardiology, patient is to start on low-dose beta isaias, and to continue furosemide patient is in understanding and agreement Review of Systems Review of Systems: All systems reviewed & are unremarkable except as noted in HPI & below Constitutional: no fever and no chills Respiratory: no cough and no dyspnea Cardiovascular: no chest pain and no palpitations Gastrointestinal: no abdominal pain and no vomiting Physical Exam Physical Exam: GENERAL: The patient is of moderate build, not in acute distress. HEENT: NC/AT, EOMI, PERRL, Oral mucosa dry. NECK: No JVD, no neck masses. CARDIOVASCULAR: S1, S2 heard, regular rate and rhythm, no murmur, no gallop. RESPIRATORY SYSTEM: Normal AP diameter. No accessory muscle use. CTAB, no rhonchi crackles or wheezing ABDOMEN: Soft, bowel sounds present, nontender. No distention. NEURO: alert and oriented x3, speech fluent, no facial asymmetry, moves extremities spontaneously EXTREMITIES: No edema, no erythema. Results & Data Results & Data ([facility]) Vital Signs (Past 12 Hours) Vital Signs Temp Pulse Pulse Resp BP Pulse Ox 07/07/20 07:16 63 07/07/20 03:34 36.8 C 83 20 122/76 97 07/07/20 00:08 80 07/06/20 23:00 36.7 C 71 18 128/74 97 07/06/20 21:33 149/95 H 07/06/20 19:54 36.5 C 76 16 116/71 95 Laboratory Results 07/07/20 07/07/20 07/06/20 Range/Units 05:16 05:16 15:11 WBC 5.63 (4.8-10.8) K/uL RBC 3.93 L (4.2-5.4) M/uL Hgb 12.6 (12.0-16.0) g/dL Hct 36.6 L (37-47) % MCV 93.1 (80-100) fL MCH 32.1 (25-34) pg MCHC 34.4 (32-36) g/dL RDW Std Deviation 44.7 (36.4-46.3) fL RDW Coeff of Heena 13.0 (11.5-14.5) % Plt Count 158 (130-400) K/uL MPV 10.7 H (7.4-10.4) fL Immature Gran % (Auto) 0.2 % Neut % (Auto) 70.5 % Lymph % (Auto) 20.2 % [place] % (Auto) 8.9 % Eos % (Auto) 0.2 % Baso % (Auto) 0.0 % Neut # (Auto) 3.97 (1.4-6.5) K/uL Lymph # (Auto) 1.14 L (1.2-3.4) K/uL [place] # (Auto) 0.50 (0.11-0.59) K/uL Eos # (Auto) 0.01 (0-0.5) K/uL Baso # (Auto) 0.00 (0-0.2) K/uL Immature Gran # (Auto) 0.01 (0.00-0.02) K/uL Sodium 133 L (136-145) mmol/L Potassium 3.6 (3.5-5.1) mmol/L Chloride 101 (98-107) mmol/L Carbon Dioxide 26 (21-32) mmol/L Anion Gap 6.0 (3-11) BUN 26 H (7-18) mg/dl Creatinine 0.83 (0.6-1.2) mg/dl Est Cr Clr Drug Dosing 41.7 ml/min Est GFR ( Amer) 79.4 ml/min Est GFR (Non-Af Amer) 68.5 ml/min BUN/Creatinine Ratio 31.7 H (10-20) Glucose 101 H (70-99) mg/dl Calcium 9.0 (8.5-10.1) mg/dl Magnesium 2.0 (1.8-2.4) mg/dl Troponin I 0.103 H* 0.122 H* (0-0.045) ng/ml 07/06/20 Range/Units 08:50 WBC (4.8-10.8) K/uL RBC (4.2-5.4) M/uL Hgb (12.0-16.0) g/dL Hct (37-47) % MCV (80-100) fL MCH (25-34) pg MCHC (32-36) g/dL RDW Std Deviation (36.4-46.3) fL RDW Coeff of Heena (11.5-14.5) % Plt Count (130-400) K/uL MPV (7.4-10.4) fL Immature Gran % (Auto) % Neut % (Auto) % Lymph % (Auto) % [place] % (Auto) % Eos % (Auto) % Baso % (Auto) % Neut # (Auto) (1.4-6.5) K/uL Lymph # (Auto) (1.2-3.4) K/uL [place] # (Auto) (0.11-0.59) K/uL Eos # (Auto) (0-0.5) K/uL Baso # (Auto) (0-0.2) K/uL Immature Gran # (Auto) (0.00-0.02) K/uL Sodium (136-145) mmol/L Potassium (3.5-5.1) mmol/L Chloride (98-107) mmol/L Carbon Dioxide (21-32) mmol/L Anion Gap (3-11) BUN (7-18) mg/dl Creatinine (0.6-1.2) mg/dl Est Cr Clr Drug Dosing ml/min Est GFR ( Amer) ml/min Est GFR (Non-Af Amer) ml/min BUN/Creatinine Ratio (10-20) Glucose (70-99) mg/dl Calcium (8.5-10.1) mg/dl Magnesium (1.8-2.4) mg/dl Troponin I 0.112 H* (0-0.045) ng/ml Medications Administered Current Inpatient Medications Acetaminophen (Acetaminophen 325 Mg Tab) 650 mg PO Q4H PRN PRN Reason: Pain or Fever Stop: 08/05/20 07:59 Last Admin: 07/07/20 01:59 Dose: 650 mg Documented by: Artificial Tears (Artificial Tears) 1 drops OP QAM [facility] Stop: 08/05/20 08:59 Last Admin: 07/06/20 10:30 Dose: 1 drops Documented by: Aspirin (Aspirin 81 Mg Ectab) 81 mg PO QAM [facility] Stop: 08/05/20 08:59 Last Admin: 07/06/20 10:28 Dose: 81 mg Documented by: Doxycycline Hyclate (Doxycycline Hyclate 100 Mg Cap) 100 mg PO BID [facility] Stop: 07/13/20 08:59 Last Admin: 07/06/20 21:28 Dose: 100 mg Documented by: Epinephrine HCl (Epinephrine 1.5" Ndl 0.1 Mg/Ml Syr) 0.3 mg IV PRN PRN PRN Reason: Allergic Symptoms Furosemide (Furosemide 20 Mg Tab) 20 mg PO QAM [facility] Stop: 08/06/20 08:59 Gabapentin (Gabapentin 300 Mg Cap) 300 mg PO BID17 [facility] Stop: 08/06/20 08:59 Gabapentin (Gabapentin 300 Mg Cap) 600 mg PO HS [facility] Stop: 08/06/20 20:59 Heparin Sodium (Porcine) (Heparin Sod 5,000 Unit/0.5 Ml Vial) 5,000 units SQ Q12 [facility] Stop: 08/05/20 08:59 Last Admin: 07/06/20 21:27 Dose: 5,000 units Documented by: Ceftriaxone Sodium 1,000 mg/ (Dextrose) 50 mls @ 100 mls/hr IV Q24H [facility]; Protocol Stop: 07/13/20 08:59 Last Infusion: 07/06/20 11:01 Dose: Infused Documented by: Levalbuterol HCl (Levalbuterol Hcl 1.25 Mg/3 Ml Neb) 1.25 mg NEB Q6H PRN PRN Reason: Shortness Of Breath Or Wheezin Stop: 08/05/20 07:59 Lisinopril (Lisinopril 2.5 Mg Tab) 2.5 mg PO BID [facility] Stop: 08/05/20 08:59 Last Admin: 07/06/20 21:28 Dose: 2.5 mg Documented by: Metronidazole (Metronidazole 0.75% Topical Gel 45 Gm Tube) 1 appln TOP DAILY PRN PRN Reason: P Stop: 07/16/20 07:54 Miscellaneous (Loteprednol Etabonate [Lotemax] 0.5 % Drops,Gel: Order Awaiting Action) 1 ea N/A QS [facility] Stop: 08/05/20 09:59 Last Admin: 07/07/20 01:40 Dose: Not Given Documented by: Nitroglycerin (Nitroglycerin Sl 0.4 Mg/Tab Tab) 0.4 mg SL UD PRN PRN Reason: Chest Pain Stop: 08/05/20 07:59 Pantoprazole Sodium (Pantoprazole 40 Mg Tab) 40 mg PO QAM [facility] Stop: 08/05/20 08:59 Last Admin: 07/06/20 10:28 Dose: 40 mg Documented by: Prednisone (Prednisone 20 Mg Tab) 40 mg PO DAILY [facility] Stop: 08/05/20 07:59 Last Admin: 07/06/20 10:33 Dose: 40 mg Documented by:
[2020-07-07] MEDS: DOXYCYCLINE HYCLATE 100 MG CAP PO SCH (08:00)
[2020-07-07] MEDS: cefTRIAXone SODIUM 1,000 MG in DEXTROSE 5% 50 ML IV SCH (08:00)
[2020-07-07] MEDS: lisinopril 2.5 MG TAB PO SCH (08:01)
[2020-07-07] MEDS: HEPARIN SOD 5,000 UNIT/0.5 ML VIAL SQ SCH (08:01)
[2020-07-07] MEDS: predniSONE 20 MG TAB PO SCH (08:02)
[2020-07-07] MEDS: ARTIFICIAL TEARS OP SCH (08:04)
[2020-07-07] MEDS: PANTOprazole 40 MG TAB PO SCH (08:04)
[2020-07-07] MEDS: ASPIRIN 81 MG ECTAB PO SCH (08:05)
[2020-07-07] MEDS ORDERED: METOPROLOL TARTRATE 25 MG TAB PO SCH (09:00)
[2020-07-07] MEDS ORDERED: GABAPENTIN 300 MG CAP PO SCH ×2 (09:00→21:00)
[2020-07-07] MEDS ORDERED: FUROSEMIDE 20 MG TAB PO SCH (09:00)
--- NOTE | 2020-07-07 09:07 | Cardiology Progress Note ---
Date of Service July 07, 2020 Assessment & Plan (1) Acute HFrEF (heart failure with reduced ejection fraction): I had a long discussion with the patient regarding her echocardiographic findings of reduced left ventricular ejection fraction. Evidence-based heart failure therapy is recommended. She is reluctant to restart beta-isaias therapy (history of intolerance to carvedilol). After lengthy discussion, she is agreeable to low-dose metoprolol tartrate 12.5 mg twice daily. Continue L asix 20 mg daily and lisinopril as previously ordered. Patient would like to be discharged home today. Agreeable to receive dose of beta-isaias and diuretic therapy this a.m. Monitor for side effects with possible discharge this afternoon if she remains stable clinically. Close outpatient cardiology follow- up in 1 week. (2) Non-ischemic cardiomyopathy: Remote history of normal coronary arteries per cardiac catheterization. (3) Left bundle branch block (LBBB): Discussed consideration for biventricular ICD implantation and cardiac resynchronization. Patient reluctant to proceed with additional procedures at this time. Risks of recurrent heart failure and sudden cardiac discussed at length. (4) Frequent unifocal PVCs: Prescription of amiodarone discussed with patient. Risk versus benefit reviewed. She prefers to avoid amiodarone at this time. States that she may be open to medication in the future if clinical status does not improve. Admission and Anticipated Discharge Date Admission Date: July 06, 2020 Subjective Patient seen and examined at the bedside. Feeling better today. Weight is down 4 pounds since admission. Requesting discharge if possible. Denies shortness of breath or palpitations at rest. Admitted with acute decompensated heart failure and possible upper respiratory tract infection. Denies cough, sputum production, rhinorrhea, sick contacts, or fevers. No orthopnea or paroxysmal nocturnal dyspnea overnight. Denies any recent weight gain or lower extremity edema. Voices concern regarding potential side effects of medications. Resistant to additional medical therapies and/or interventions. Review of Systems Review of Systems: All systems reviewed & are unremarkable except as noted in Subjective Physical Exam Constitutional: well developed and well nourished; no acute distress Respiratory: no respiratory distress and no labored breathing Auscultation: no crackles, no rales, no rhonchi and no wheezes Cardiovascular: Rate/Rhythm: regular rate and regular rhythm Heart Sounds: normal S1 and normal S2; no murmur Vessels: radial pulses present; no JVD and no carotid bruit Extremities: no edema Gastrointestinal (Abdomen): Inspection/Auscultation: abdomen normal to inspection and normal bowel sounds; abdomen not distended Percussion/Palpation: abdomen soft; abdomen nontender, no guarding and abdomen not rigid Neurologic: CN's II-XI intact bilaterally Motor/Sensory: no tremor Psychiatric: Orientation: alert and oriented x 3 Results & Data ([facility]) Vital Signs (Past 12 Hours) Vital Signs Temp Pulse Pulse Resp BP Pulse Ox 07/07/20 08:00 37.2 C 68 20 108/51 L 93 07/07/20 07:16 63 07/07/20 03:34 36.8 C 83 20 122/76 97 07/07/20 00:08 80 07/06/20 23:00 36.7 C 71 18 128/74 97 07/06/20 21:33 149/95 H
--- NOTE | 2020-07-07 12:45 | Discharge Summary ---
Date of Service July 07, 2020 Admission HPI Per Admitting Provider This is a 75-year-old female with past medical history significant for hyperlipidemia, deviated nasal septum, idiopathic cardiomyopathy, left bundle branch block, bradycardia, irritable bowel syndrome, menopause, general osteoarthrosis, low back pain, history of tobacco use, comes with sudden onset of shortness of breath tonight. The patient says she is wheezing for a couple of days and tonight, she started to have dry cough and shortness of breath. She could not sleep with coughing. She has had some chest discomfort attributes to coughing. Denies any fever or chills. No nausea, no headache, no blurred vision, no earache, no runny nose, no sore throat. Appetite is okay. No abdominal pain. Normal bowel and bladder movements. No diarrhea, no swelling in the legs. Lives alone. No fevers. The patient is done with her COVID shots. Admission Exam Per Admitting Provider GENERAL: The patient is of moderate build, not in acute distress. VITAL SIGNS: Temperature 36.5, pulse 115, respiratory rate 16, blood pressure 160/101, oxygen 86%-90% on room air. HEENT: Pupils equal, round, reactive to light. Oral mucosa dry. NECK: No JVD, no neck masses. CARDIOVASCULAR: S1, S2 heard, regular rate and rhythm, no murmur, no gallop. RESPIRATORY SYSTEM: Normal AP diameter. No accessory muscle use. Bilateral fine crackles and rhonchi heard. ABDOMEN: Soft, bowel sounds present, nontender. No distention. CENTRAL NERVOUS SYSTEM: Cranial nerves II through XII grossly intact, nonfocal. EXTREMITIES: No edema, no erythema. Principal Diagnosis Acute HFrEF LBBB Frequent PVCs Discharge Exam GENERAL: The patient is of moderate build, not in acute distress. HEENT: NC/AT, EOMI, PERRL, Oral mucosa dry. NECK: No JVD, no neck masses. CARDIOVASCULAR: S1, S2 heard, regular rate and rhythm, no murmur, no gallop. RESPIRATORY SYSTEM: Normal AP diameter. No accessory muscle use. CTAB, no rhonchi crackles or wheezing ABDOMEN: Soft, bowel sounds present, nontender. No distention. NEURO: alert and oriented x3, speech fluent, no facial asymmetry, moves extremities spontaneously EXTREMITIES: No edema, no erythema. Discharge Data Allergies Allergy/AdvReac Type Severity Reaction Status Date / Time bee venom protein (honey bee) Allergy Severe ANAPHYLAXIS Verified 07/06/20 07:42 Iodinated Contrast Media Allergy Unknown SOB,CRACKLI Verified 07/06/20 07:42 NG,WHEEZING Sulfa (Sulfonamide Allergy Unknown HIVES Verified 07/06/20 07:42 Antibiotics) Consultations 07/06/20 05:58 ED Decision to Admit Stat 07/06/20 08:00 Consult Cardiology Routine Hospital Course (1) Acute HFrEF (heart failure with reduced ejection fraction): (2) Non-ischemic cardiomyopathy: (3) Left bundle branch block (LBBB): (4) Frequent unifocal PVCs: This is a 75-year-old female who presents with shortness of breath and cough. 1. Secondary to acute heart failure with reduced ejection fraction, frequent PVCs 1. Shortness of breath. The patient has a history of idiopathic cardiomyopathy, ejection fraction of around 45% on an echocardiogram of 06/28/2019, some crackles on exam on admission, though no edema in the legs. BNP is elevated Received IV Lasix on admission. Intakes and outputs, daily weights, monitor in telemetry floor. Echocardiogram obtained -sinus rhythm with left bundle branch block and very frequent PVCs present during the echocardiogram. LV is mildly dilated. This septal motion is abnormal consistent with a left bundle branch block. Moderate diffuse LV hypokinesis is otherwise present. LV systolic function is moderately reduced. LV EF 30 to 34%, however in some views the EF appears worse than this depending upon frequency of the PVCs. The RV is normal in size and function. LA is mildly dilated. There is mild MR. There is mild TR. Pulmonary artery systolic pressure is estimated to be 35 to 40 mmHg, mildly increased. Compared to the most recent available outpatient echocardiogram, there has been interval decline in the LVEF, frequent PVCs now noted Cardiology consulted for further recommendations. - Had lengthy discussion with the patient, in agreement to continue lisinopril, add p.o. furosemide, and small dose of metoprolol 12.5 twice daily. Close follow-up with cardiology also to be arranged. Previously patient did not tolerate Coreg well. She would also like to avoid amiodarone. Discussed biventricular ICD, at this time patient would not like to proceed with any procedures. 2. Possible acute bronchitis with cough and possible pneumonitis with ongoing cough -believed on admission, however patient's symptoms seem to be secondary to above (acute HF) Empirically started on Rocephin and doxycycline and nebulizers. The patient has a history of smoking in the past. Prednisone 40 mg daily for a short course and nebulizers and monitor. Will stop antibiotics and prednisone now. 3. History of left bundle branch block. Cardio consulted, as above. 4. Gastroesophageal reflux disease. Continue omeprazole. 5. History of hypertension, on lisinopril. Addition of furosemide and metoprolol, as above Total Time Total Time Spent Total Time Spent (In Minutes): 35 Total Time Includes: Examination of the Patient, Discharge Planning, Medication Reconciliation and Communication With Other Providers Discharge Plan Discharge Items Patient Disposition: Home - Self-Care Reason For Visit: SOB Discharge Diagnosis: Acute HFrEF LBBB Frequent PVCs Activity: Per Instructions section Non-emergency contact: Primary Care Provider and Ear Flap Binder Call non-emergency contact if: you have any medication questions and your symptoms worsen Follow-up/Referrals: Thaddeus Richmond MD [Primary Care Provider] - Diet: Heart Healthy Add Attending Provider Instructions: Follow-up closely with your prosthetic lab technician and a primary care doctor. You should be seen by prosthetic lab technician in a week. There were new medications started during this hospital stay, metoprolol for your heart rate and furosemide for blood pressure/fluid management. Make sure t o continue taking your lisinopril. If you have any questions about these medications, please contact your prosthetic lab technician or your family doctor. Addtl Business Intelligence Developer Provider Instructions: Call your Primary Care doctor if any of the following symptoms or problems start or get worse: * Shortness of breath or difficulty breathing * Wake up at night short of breath * Chest pain * Cough * Swelling of your hands, feet, or legs * More fatigued or tired with your normal activity * Palpitations - sudden fast heart beats WEIGHT * Weigh yourself every morning after using the bathroom. * Use the same scale. * Wear the same amount of clothing. * Write your weight down on a chart. * Call your Primary Care doctor if you gain more than 2-3 pounds in 1-2 days. MEDICATIONS * Use this discharge instruction sheet for medication instructions. * Take your medications at the time your doctor ordered. * Do not skip a dose of your medicines. * If you miss a dose of medicine, take it as soon as possible, but DO NOT DOUBLE A DOSE. * Read your medicine information when you get home. * Know all of the side effects of your medicine. If in doubt, ask your pharmacist * Call your Primary Care doctor's office if you have any side effects. * Be sure all of your doctors know what medicine and herbs you take (including cold, flu, and herbal medicine). Take the following with you to your follow-up doctor appointments: * Weight Chart * Medication List * List of questions Do not drink excessive alcohol, beer or wine. Pending Studies at Discharge: No Stand-Alone Forms: My [facility] [employer], Smoking Cessation Medications and DC Order Prescriptions: New furosemide 20 mg Tablet 20 mg PO QAM Qty: 30 RF: 0 metoprolol tartrate 25 mg Tablet 12.5 mg PO BID 30 Days Qty: 30 RF: 0 Continued aspirin [Aspir-81] 81 mg Tablet,Delayed Release (Dr/Ec) 81 mg PO QAM RF: 0 gabapentin 300 mg capsule See Rx Instructions .ROUTE .COMPLEX RF: 0 omeprazole 20 mg capsule,delayed release(DR/EC) 20 mg PO QAM RF: 0 lisinopril 2.5 mg tablet 2.5 mg PO BID RF: 0 Refresh Liquigel 1 % Drops, Liquid Gel 1 drp OPB QAM RF: 0 loteprednol etabonate [Lotemax] 0.5 % drops,gel 1 drp OPB HS RF: 0 Discharge Orders: Discharge Order (Routine); Ordered 07/07/20 Ordered By: Bairon Echavarria Admission Data Admit Date/Time: 07/06/20 06:41 Attending Provider: Bairon Echavarria Admit Provider: Duc Durant Primary Care Provider: Thaddeus Richmond Other Providers: Duc Durant ; Per Lopez ; Vira Solitario
--- NOTE | 2020-07-07 16:32 | Electrocardiogram Report ---
Test Reason : Blood Pressure : / mmHG Vent. Rate : 068 BPM Atrial Rate : 068 BPM P-R Int : 170 ms QRS Dur : 136 ms QT Int : 482 ms P-R-T Axes : 075 -40 113 degrees QTc Int : 512 ms Poor data quality, interpretation may be adversely affected Sinus rhythm with occasional Premature ventricular complexes Possible Left atrial enlargement Left axis deviation Left bundle branch block T wave abnormality, consider lateral ischemia Abnormal ECG When compared with ECG of 06-JUL-2020 09:58, No significant change was found Confirmed by Edgar Rodrigues ([id number]) on 07/07/2020 4:31:48 PM Referred By: REFERRED SELF Confirmed By:Everett Rodrigues
== END 2020-07-07 13:29 | disposition home or self-care (01) ==
LOC: ED 04:44 → 2S 06:41 → SUATTDRO 06:41 → INTOOBSV 06:41 → 2S 07:36

== ENCOUNTER 2021-02-08 02:07 | Inpatient (IN) ==
[2021-02-08] MEDS ORDERED: LORazepam 0.5 MG/1 ML VIAL IV STA (02:25)
--- NOTE | 2021-02-08 02:25 | Emergency Department Note ---
Impression & Plan Hypoxia, Respiratory difficulty, Acute HFrEF (heart failure with reduced ejection fraction) Admission ED Provider Note Patient arrived to the ED via EMS ambulance HPI: The patient is a 75-year-old female with history of heart failure with reduced ejection fraction 30 to 35% on last echo, history of nonischemic cardiomyopathy, presents the emergency department chief complaint shortness of breath. Per EMS the patient was saturating at approximately 80% in the field, she was placed on nonrebreather mask and unfortunately continued to have increased work of breathi ng, CPAP was attempted for short period of time and the patient had some difficulty with this secondary to anxiety, per EMS she did respond appropriately but the EMS provider did have to hold the mask over her face as she had anxiety when the mask was attached posterior to her scalp. On arrival here to the ED the patient is anxious appearing but she is cooperative with placement of BiPAP, on my assessment she is on the BiPAP machine and tells me that this does feel like it is helping with her work of breathing. Patient is otherwise with stable blood pressure on arrival, she is in mild distress secondary to increased work of breathing but otherwise is alert with improved oxygen saturations now on BiPAP. ROS: -Pulmonary: Shortness of breath *10 point review systems was conducted and is otherwise negative unless stated above *Outpatient medications and allergy history reviewed PE: General: Alert, NAD HEENT: Normocephalic, atraumatic, trachea midline Eyes: Extraocular eye movement is intact, no scleral erythema Pulmonary: Diminished breath sounds bilaterally without any wheezing Cardio: Regular rate and rhythm GI: Abdomen is soft, nontender : No suprapubic tenderness MSK: No evidence of trauma or malformation of the extremities, no edema Skin: No evidence of rash Neuro: Alert, no focal deficits Psychiatric: Anxious appearing but cooperative secured entrance monitor: - An order was placed for continuous cardiac monitoring - Patient was noted to be in paced rhythm with rate of 85 EKG: Rate: 109 Rhythm: Paced rhythm Intervals: QRS 112 ms, QTC 506 ms, paced rhythm ST changes: No ST elevation Time: 0214 Medical Decision Making: Patient presented with shortness of breath. She required positive pressure ventilation in the field to maintain her oxygen saturations above 93%. On arrival here to the ED she is anxious appearing, she was placed on BiPAP with improvement in her oxygen saturations but she did require a small dose of Ativan in order to tolerate the BiPAP mask. Labwork shows a pH of 7.30 on venous blood gas, PCO2 is within normal limits, troponin is negative x1, EKG does not show any ischemic changes, patient denies any chest pain. Chest x-ray shows a pattern of what appears to be fluid overload per my interpretation with mild to moderate pulmonary edema, patient was given a dose of IV Lasix here in the ED. Her vital signs improved while she was on BiPAP and her oxygen saturation remained above 93% while on BiPAP. Her mentation was much more calm following a small dose of IV Ativan. Interventions included IV Ativan, IV Lasix, positive pressure ventilation with BiPAP. On re-evaluation the patient appears improved, states she does not want to trial off the BiPAP mask at this time as she states it is improved her work of breathing greatly and she feels too anxious to remove it. Given her improvement clinically I think she may benefit from leaving this in place for the time being. COVID-19 testing was obtained and is negative. Case was discussed with the on-call hospitalist for [facility], Dr. Yoder, who accepted the patient to a telemetry bed for further management of acute hypoxic respiratory failure secondary to CHF with reduced ejection fraction. Patient was admitted in improved condition. * CRITICAL CARE TIME: (45) minutes -Management of acute hypoxic respiratory failure with oxygen saturations at 80% in the field on room air, requiring positive pressure ventilation for stabilization, time spent at the bedside, interpretation of diagnostic studies, arrangement of admission and discussion with other physicians Diagnosis: 1. Hypoxic respiratory failure secondary to acute on chronic CHF exacerbation 2. Acute respiratory failure requiring positive pressure ventilation for stabilization 2. Anxiety Disposition: Admission Ramirez Trevizo DO Emergency Medicine Past Med/Surg History Social History Smoking Status: Never smoker Hx Alcohol Use: No Hx Substance Use: No Preferred Language: Bengali Communication Ability: Effective Oracle Database Administrator Required: No Beliefs That Will Affect Care: L[employer] Current Living Situation: Alone Current Living Situation Comment: 2 story home Feels Safe at Home: Yes Assistive Devices: None Allergies Allergies Allergy/AdvReac Type Severity Reaction Status Date / Time bee venom protein (honey bee) Allergy Severe ANAPHYLAXIS Verified 07/06/20 07:42 Iodinated Contrast Media Allergy Unknown SOB,CRACKLI Verified 07/06/20 07:42 NG,WHEEZING Sulfa (Sulfonamide Allergy Unknown HIVES Verified 07/06/20 07:42 Antibiotics) Home Meds Home Medications Medication Instructions Recorded Confirmed aspirin 81 mg tablet,delayed 81 mg PO QAM 07/06/20 02/08/21 release carboxymethylcellulose sodium 1 % 1 drp OPB QAM 07/06/20 02/08/21 eye liquid gel drops (Refresh Liquigel) gabapentin 300 mg capsule See Rx Instructions .ROUTE .COMPLEX 07/06/20 02/08/21 lisinopril 2.5 mg tablet 2.5 mg PO BID 07/06/20 02/08/21 loteprednol etabonate 0.5 % eye 1 drp OPB HS 07/06/20 02/08/21 gel drops (Lotemax) omeprazole 20 mg capsule,delayed 20 mg PO QAM 07/06/20 02/08/21 release Previous Rx's Medication Instructions Recorded furosemide 20 mg tablet 20 mg PO QAM #30 tab 07/07/20 metoprolol succinate 25 mg 25 mg PO DAILY #30 tab 09/26/20 tablet,extended release 24 hr (Toprol XL) Results & Data (ED) Vital Signs Vital Signs - 24 hr 02/08/21 02:15 02/08/21 02:16 02/08/21 02:28 Pulse Rate 102 H 115 H Pulse Rate from SpO2 Sensor Pulse Rhythm Regular Pulse Strength Normal Respiratory Rate 22 39 H Respiratory Effort / Characteristics Short of Breath Spontaneous Accessory Muscle Use Labored Short of Breath Respiratory Depth Normal Deep Respiratory Pattern Tachypnea Rapid/Deep Tachypnea Blood Pressure 153/102 H Blood Pressure Mean 119 Blood Pressure Position Lying Pulse Oximetry 99 99 99 Oxygen Delivery Method BiPAP BiPAP Fraction of Inspired Oxygen 60 Sepsis Recent Fever Within 48 Hours No Sepsis New/Unexplained Change in Mental Status No Sepsis Action Taken by Nursing Physician Notified 02/08/21 02:52 02/08/21 03:00 Pulse Rate 79 84 Pulse Rate from SpO2 Sensor 86 Pulse Rhythm Pulse Strength Respiratory Rate 16 17 Respiratory Effort / Characteristics Respiratory Depth Respiratory Pattern Blood Pressure 123/60 117/80 Blood Pressure Mean 81 92 Blood Pressure Position Pulse Oximetry 99 97 Oxygen Delivery Method BiPAP CPAP Fraction of Inspired Oxygen Sepsis Recent Fever Within 48 Hours Sepsis New/Unexplained Change in Mental Status Sepsis Action Taken by Nursing Laboratory Data Result diagrams: 02/08/21 02:20 02/08/21 02:20 Lab Results 02/08/21 02/08/21 02/08/21 Range/Units 02:20 02:20 02:20 WBC 8.24 (4.8-10.8) K/uL RBC 4.43 (4.2-5.4) M/uL Hgb 12.3 (12.0-16.0) g/dL Hct 38.5 (37-47) % MCV 86.9 (80-100) fL MCH 27.8 (25-34) pg MCHC 31.9 L (32-36) g/dL RDW Std Deviation 46.3 (36.4-46.3) fL RDW Coeff of Heena 14.6 H (11.5-14.5) % Plt Count 205 (130-400) K/uL MPV 11.2 H (7.4-10.4) fL Immature Gran % (Auto) 0.1 % Neut % (Auto) 55.1 % Lymph % (Auto) 34.0 % [place] % (Auto) 8.0 % Eos % (Auto) 2.2 % Baso % (Auto) 0.6 % Neut # (Auto) 4.54 (1.4-6.5) K/uL Lymph # (Auto) 2.80 (1.2-3.4) K/uL [place] # (Auto) 0.66 H (0.11-0.59) K/uL Eos # (Auto) 0.18 (0-0.5) K/uL Baso # (Auto) 0.05 (0-0.2) K/uL Immature Gran # (Auto) 0.01 (0.00-0.02) K/uL PT 10.6 (9.0-12.0) Seconds INR 1.0 (0.9-1.1) APTT 23.4 (21.0-31.0) Seconds PTT Ratio 0.9 VBG pH (7.36-7.41) VBG pCO2 (38-50) mmHg VBG pO2 mmHg VBG HCO3 mmol/L VBG O2 Saturation % VBG Base Excess mEq/L Barometric Pressure mm/Hg Sodium 135 L (136-145) mmol/L Potassium 4.0 (3.5-5.1) mmol/L Chloride 104 (98-107) mmol/L Carbon Dioxide 27 (21-32) mmol/L Anion Gap 4.0 (3-11) BUN 29 H (7-18) mg/dl Creatinine 1.23 H (0.6-1.2) mg/dl Est Cr Clr Drug Dosing 26.4 ml/min Est GFR ( Amer) 49.3 ml/min Est GFR (Non-Af Amer) 42.6 ml/min BUN/Creatinine Ratio 23.6 H (10-20) Glucose 216 H (70-99) mg/dl Lactate (0.4-2.0) mmol/L Calcium 9.1 (8.5-10.1) mg/dl Total Bilirubin 0.5 (0.2-1) mg/dl AST 39 H (15-37) U/L ALT 54 (12-78) Alkaline Phosphatase 81 (45-117) U/L Troponin I < 0.015 (0-0.045) ng/ml NT-Pro-B Natriuret Pep 9268 H (0-1800) pg/ml Total Protein 6.9 (6.4-8.2) gm/dl Albumin 3.3 L (3.4-5.0) gm/dl Globulin 3.6 (2.5-4.0) gm/dl Albumin/Globulin Ratio 0.9 (0.9-2) Lipase 110 (73-393) U/L SARS-CoV-2 (PCR) (Negative) Influenza Type A (PCR) (Neg) Influenza Type B (PCR) (Neg) RSV (RT-PCR) (Neg) 02/08/21 02/08/21 02/08/21 Range/Units 02:20 02:32 02:44 WBC (4.8-10.8) K/uL RBC (4.2-5.4) M/uL Hgb (12.0-16.0) g/dL Hct (37-47) % MCV (80-100) fL MCH (25-34) pg MCHC (32-36) g/dL RDW Std Deviation (36.4-46.3) fL RDW Coeff of Heena (11.5-14.5) % Plt Count (130-400) K/uL MPV (7.4-10.4) fL Immature Gran % (Auto) % Neut % (Auto) % Lymph % (Auto) % [place] % (Auto) % Eos % (Auto) % Baso % (Auto) % Neut # (Auto) (1.4-6.5) K/uL Lymph # (Auto) (1.2-3.4) K/uL [place] # (Auto) (0.11-0.59) K/uL Eos # (Auto) (0-0.5) K/uL Baso # (Auto) (0-0.2) K/uL Immature Gran # (Auto) (0.00-0.02) K/uL PT (9.0-12.0) Seconds INR (0.9-1.1) APTT (21.0-31.0) Seconds PTT Ratio VBG pH 7.30 L (7.36-7.41) VBG pCO2 48 (38-50) mmHg VBG pO2 36 mmHg VBG HCO3 23 mmol/L VBG O2 Saturation < 60.0 % VBG Base Excess -3.3 mEq/L Barometric Pressure 732.8 mm/Hg Sodium (136-145) mmol/L Potassium (3.5-5.1) mmol/L Chloride (98-107) mmol/L Carbon Dioxide (21-32) mmol/L Anion Gap (3-11) BUN (7-18) mg/dl Creatinine (0.6-1.2) mg/dl Est Cr Clr Drug Dosing ml/min Est GFR ( Amer) ml/min Est GFR (Non-Af Amer) ml/min BUN/Creatinine Ratio (10-20) Glucose (70-99) mg/dl Lactate 2.5 H* (0.4-2.0) mmol/L Calcium (8.5-10.1) mg/dl Total Bilirubin (0.2-1) mg/dl AST (15-37) U/L ALT (12-78) Alkaline Phosphatase (45-117) U/L Troponin I (0-0.045) ng/ml NT-Pro-B Natriuret Pep (0-1800) pg/ml Total Protein (6.4-8.2) gm/dl Albumin (3.4-5.0) gm/dl Globulin (2.5-4.0) gm/dl Albumin/Globulin Ratio (0.9-2) Lipase (73-393) U/L SARS-CoV-2 (PCR) NEGATIVE (Negative) Influenza Type A (PCR) Negative (Neg) Influenza Type B (PCR) Negative (Neg) RSV (RT-PCR) Negative (Neg) Administered Medications Discontinued Medications Furosemide (Furosemide 40 Mg/4 Ml Vial) 40 mg IV ONE ONE Stop: 02/08/21 02:32 Last Admin: 02/08/21 02:40 Dose: 40 mg Documented by: [id number] Lorazepam (Ativan) 0.5 mg in 1 mls @ 1 mls/min IV NOW STA Stop: 02/08/21 02:26 Last Admin: 02/08/21 02:14 Dose: 1 mls/min Documented by: [id number] Discharge Plan Visit Data Chief Complaint: Shortness of Breath/Dyspnea Stated Complaint: BREATHING DIFFICULTY ED Provider: Ramirez Trevizo Discharge Problem: Hypoxia, Respiratory difficulty, Acute HFrEF (heart failure with reduced ejection fraction) Forms Stand Alone Forms: [facility] [place] [employer] Prescriptions Prescriptions: No Action metoprolol succinate [Toprol XL] 25 mg tablet extended release 24 hr 25 mg PO DAILY Qty: 30 RF: 11 aspirin 81 mg Tablet,Delayed Release (Dr/Ec) 81 mg PO QAM RF: 0 gabapentin 300 mg capsule See Rx Instructions .ROUTE .COMPLEX RF: 0 omeprazole 20 mg capsule,delayed release(DR/EC) 20 mg PO QAM RF: 0 lisinopril 2.5 mg tablet 2.5 mg PO BID RF: 0 Refresh Liquigel 1 % Drops, Liquid Gel 1 drp OPB QAM RF: 0 loteprednol etabonate [Lotemax] 0.5 % drops,gel 1 drp OPB HS RF: 0 furosemide 20 mg Tablet 20 mg PO QAM Qty: 30 RF: 0 Referrals Referrals: Thaddeus Richmond MD [Outside Practitioners] -
[2021-02-08] MEDS ORDERED: FUROSEMIDE 40 MG/4 ML VIAL IV ONE ×2 (02:31→10:26)
[2021-02-08 02:33] LABS: Basophils # (auto) 0.05 K/uL (0-0.2); Basophils % (auto) 0.6 %; Eosinophils # (auto) 0.18 K/uL (0-0.5); Eosinophils % (auto) 2.2 %; Hematocrit (blood only) 38.5 % (37-47); Hemoglobin 12.3 g/dL (12.0-16.0); Immature Granulocytes # (auto) 0.01 K/uL (0.00-0.02); Immature Granulocytes % (auto) 0.1 %; Mean Corpuscular Hemoglobin 27.8 pg (25-34); Mean Corpuscular Hgb Conc 31.9 g/dL (32-36); Mean Corpuscular Volume 86.9 fL (80-100); Mean Platelet Volume 11.2 fL (7.4-10.4); Monocytes # (auto) 0.66 K/uL (0.11-0.59); Neutrophils # (auto) 4.54 K/uL (1.4-6.5); Neutrophils % (auto) 55.1 %; Platelet Count 205 K/uL (130-400); RDW Coefficient of Variation 14.6 % (11.5-14.5); RDW Standard Deviation 46.3 fL (36.4-46.3); Red Blood Count 4.43 M/uL (4.2-5.4); White Blood Count 8.24 K/uL (4.8-10.8)
[2021-02-08 02:44] LABS: Partial Thromboplastin Ratio 0.9; Partial Thromboplastin Time 23.4 Seconds (21.0-31.0); Prothrombin Time 10.6 Seconds (9.0-12.0)
[2021-02-08 02:54] LABS: Alanine Aminotransferase 54 (12-78); Albumin Level 3.3 gm/dl (3.4-5.0); Aspartate Aminotransferase 39 U/L (15-37); BUN Creatinine Ratio 23.6 (10-20); Blood Urea Nitrogen 29 mg/dl (7-18); Calcium 9.1 mg/dl (8.5-10.1); Carbon Dioxide 27 mmol/L (21-32); Chloride 104 mmol/L (98-107); Creatinine Clr Calc Pharmacy 26.4 ml/min; Est GFR (African American) 49.3 ml/min; Est GFR (Non-African American) 42.6 ml/min; Glucose 216 mg/dl (70-99); Lipase 110 U/L (73-393); Sodium 135 mmol/L (136-145)
[2021-02-08 02:59] LABS: Albumin Globulin Ratio 0.9 (0.9-2); Alkaline Phosphatase 81 U/L (45-117); Bilirubin,Total 0.5 mg/dl (0.2-1); Globulin 3.6 gm/dl (2.5-4.0); NT Pro B Type Natriuretic Pept 9268 pg/ml (0-1800); Total Protein 6.9 gm/dl (6.4-8.2); Troponin I < 0.015 ng/ml (0-0.045)
[2021-02-08 03:00] LABS: Base Excess VBG -3.3 mEq/L; HCO3 VBG 23 mmol/L; PCO2 VBG 48 mmHg (38-50); PO2 VBG 36 mmHg
[2021-02-08 03:02] LABS: Oxygen Saturation VBG < 60.0 %
[2021-02-08 03:19] LABS: Influenza A virus by PCR Negative (Neg); Influenza B virus by PCR Negative (Neg); RSV by PCR Negative (Neg); SARS CoV2 RNA(COVID-19) InHosp NEGATIVE (Negative)
[2021-02-08] MEDS ORDERED: ALBUMIN 25% 12.5 GM/50 ML VIAL IV STA (03:50)
[2021-02-08 04:08] LABS: Appearance Urine Cloudy (Clear); Bacteria Urine Automated 1+ (Negative); Bilirubin Urine Negative (Negative); Blood Urine Trace (Negative); Color Urine Yellow; Glucose Urine UA Negative (Negative); Ketones Urine Negative (Negative); Leukocyte Esterase Urine 1+ (Negative); Nitrite Urine Negative (Negative); Protein Urine Negative (Negative); Specific Gravity Urine 1.008 (1.000-1.030); Urobilinogen Urine Negative (Negative); pH Urine 5.5 (4.5-7.5)
[2021-02-08] MEDS ORDERED: XOPENEX/ATROVENT 1.25mg/0.5MG NEB COMBO NEB STA (04:17)
--- NOTE | 2021-02-08 04:17 | History & Physical Report ---
Date of Service February 08, 2021 Assessment & Plan (1) Acute hypoxemic respiratory failure: Plan: Secondary to decompensated heart failure hx chronic systolic heart failure secondary to nonischemic cardiomyopathy (EF 30 to 34%, TTE 2020) Pulmonary hypertension on TTE Unclear precipitant for now ARF, secondary to illness hx biventricular PPM chronic left bundle branch block past tobacco abuse. PCU Supplemental O2, wean off BiPAP Neb 1 dose given wheezing on exam Strict I/Os, daily weights, CHF education, fluid restriction Update TTE, Cardiology consult Re: Decompensated heart failure, subsequent diuretic Rx as per Cardiology PPM interrogation Check UA, Albumin 1 dose for kidney dysfunction, appropriate to hold lisinopril until creatinine back to baseline Renal ultrasound if without improvement in kidney function. DVT prophylaxis per Heparin subcu Full code Text document was generated using [employer] voice recognition software. It may contain grammatical or spelling errors. Kindly contact undersigned for clarification of any documentation item in question. History of Present Illness Chief Complaint: Shortness of breath Primary Care Provider: Noel Perry DO History obtained from patient and records. Medical history significant for chronic systolic heart failure secondary to no nischemic cardiomyopathy (EF 30 to 34%, TTE 2020), pulmonary hypertension, valvular heart disease (mild TR, mild MR on recent echo), chronic LBBB, biventricular PPM, past tobacco abuse. Last confinement June 2020 for decompensated heart failure. 3 weeks ago, patient noted orthopnea, exertional S OB symptoms without weight gain or edema complaints. Dry cough and crackling in the lungs without fever, chills. Patient pharmacy affairs assistant recommended extra dose of Lasix. Patient reduce Toprol-XL to one half tab daily owing to fatigue, insomnia symptoms from medication. Patient unaware of snoring symptoms at home. Some improvement in symptoms as per patient. Patient noted worsening shortness of breath symptoms last night without chest pain. Compliant with home medications. Denies dietary indiscretion. O2 sats 80s upon arrival of EMS at patient home. Patient placed on nonrebreather mask at home. At the ER, BiPAP initiated and Lasix administered for CHF. Patient feels much better. 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 Allergies Allergy/AdvReac Type Severity Reaction Status Date / Time bee venom protein (honey bee) Allergy Severe ANAPHYLAXIS Verified 07/06/20 07:42 Iodinated Contrast Media Allergy Unknown SOB,CRACKLI Verified 07/06/20 07:42 NG,WHEEZING Sulfa (Sulfonamide Allergy Unknown HIVES Verified 07/06/20 07:42 Antibiotics) Home Medications Medication Instructions Recorded Confirmed Type aspirin 81 mg tablet,delayed 81 mg PO QAM 07/06/20 02/08/21 History release carboxymethylcellulose sodium 1 % 1 drp OPB QAM 07/06/20 02/08/21 History eye liquid gel drops (Refresh Liquigel) gabapentin 300 mg capsule See Rx Instructions .ROUTE .COMPLEX 07/06/20 02/08/21 History lisinopril 2.5 mg tablet 2.5 mg PO BID 07/06/20 02/08/21 History loteprednol etabonate 0.5 % eye 1 drp OPB HS 07/06/20 02/08/21 History gel drops (Lotemax) omeprazole 20 mg capsule,delayed 20 mg PO QAM 07/06/20 02/08/21 History release furosemide 20 mg tablet 20 mg PO QAM #30 tab 07/07/20 02/08/21 Rx metoprolol succinate 25 mg 25 mg PO DAILY #30 tab 09/26/20 02/08/21 Rx tablet,extended release 24 hr (Toprol XL) Past Med/Surg History Social History Smoking Status: Former smoker Hx Alcohol Use: No Hx Substance Use: No Preferred Language: [place] Zealander Communication Ability: Effective Brand Strategy Manager Required: No Beliefs That Will Affect Care: Rastafarian Current Living Situation: Alone Current Living Situation Comment: 2 story home Feels Safe at Home: Yes Assistive Devices: Oxygen - Continuous Review of Systems Review of Systems: As per HPI, all 10 systems reviewed, all other ROS negative Physical Exam Physical Exam: GENERAL: Comfortable, slightly anxious, underweight, no respiratory distress SKIN: Normal color, warm HEENT: [place] palpebral conjunctivae, no ptosis, dry buccal mucosa, O2 mask in place NECK : Supple, no tenderness CHEST : Decreased breath sounds, expiratory wheezes, no tenderness HEART : Diminished S1-S2, systolic murmur ABDOMEN: Some distention, nontender EXTREMITIES : Minimal LE swelling, no LE tenderness, no other conspicuous deformities noted NEUROLOGIC : Coherent, no facial asymmetry, no other gross focality Results & Data Results & Data ([facility]) Vital Signs (Past 12 Hours) Vital Signs Pulse Resp BP Pulse Ox 02/08/21 03:45 78 16 127/76 97 02/08/21 03:00 84 17 117/80 97 02/08/21 02:52 79 16 123/60 99 02/08/21 02:28 99 02/08/21 02:16 115 H 39 H 99 02/08/21 02:15 102 H 22 153/102 H 99 Laboratory Results Laboratory Results WBC 8.24 K/uL (4.8-10.8) 02/08/21 02:20 RBC 4.43 M/uL (4.2-5.4) 02/08/21 02:20 Hgb 12.3 g/dL (12.0-16.0) 02/08/21 02:20 Hct 38.5 % (37-47) 02/08/21 02:20 MCV 86.9 fL (80-100) 02/08/21 02:20 MCH 27.8 pg (25-34) 02/08/21 02:20 MCHC 31.9 g/dL (32-36) L 02/08/21 02:20 RDW Std Deviation 46.3 fL (36.4-46.3) 02/08/21 02:20 RDW Coeff of Heena 14.6 % (11.5-14.5) H 02/08/21 02:20 Plt Count 205 K/uL (130-400) 02/08/21 02:20 MPV 11.2 fL (7.4-10.4) H 02/08/21 02:20 Immature Gran % (Auto) 0.1 % 02/08/21 02:20 Neut % (Auto) 55.1 % 02/08/21 02:20 Lymph % (Auto) 34.0 % 02/08/21 02:20 [place] % (Auto) 8.0 % 02/08/21 02:20 Eos % (Auto) 2.2 % 02/08/21 02:20 Baso % (Auto) 0.6 % 02/08/21 02:20 Neut # (Auto) 4.54 K/uL (1.4-6.5) 02/08/21 02:20 Lymph # (Auto) 2.80 K/uL (1.2-3.4) 02/08/21 02:20 Wheeler # (Auto) 0.66 K/uL (0.11-0.59) H 02/08/21 02:20 Eos # (Auto) 0.18 K/uL (0-0.5) 02/08/21 02:20 Baso # (Auto) 0.05 K/uL (0-0.2) 02/08/21 02:20 Immature Gran # (Auto) 0.01 K/uL (0.00-0.02) 02/08/21 02:20 PT 10.6 Seconds (9.0-12.0) 02/08/21 02:20 INR 1.0 (0.9-1.1) 02/08/21 02:20 APTT 23.4 Seconds (21.0-31.0) 02/08/21 02:20 PTT Ratio 0.9 02/08/21 02:20 VBG pH 7.30 (7.36-7.41) L 02/08/21 02:44 VBG pCO2 48 mmHg (38-50) 02/08/21 02:44 VBG pO2 36 mmHg 02/08/21 02:44 VBG HCO3 23 mmol/L 02/08/21 02:44 VBG O2 Saturation < 60.0 % 02/08/21 02:44 VBG Base Excess -3.3 mEq/L 02/08/21 02:44 Barometric Pressure 732.8 mm/Hg 02/08/21 02:44 Sodium 135 mmol/L (136-145) L 02/08/21 02:20 Potassium 4.0 mmol/L (3.5-5.1) 02/08/21 02:20 Chloride 104 mmol/L (98-107) 02/08/21 02:20 Carbon Dioxide 27 mmol/L (21-32) 02/08/21 02:20 Anion Gap 4.0 (3-11) 02/08/21 02:20 BUN 29 mg/dl (7-18) H 02/08/21 02:20 Creatinine 1.23 mg/dl (0.6-1.2) H 02/08/21 02:20 Est Cr Clr Drug Dosing 26.4 ml/min 02/08/21 02:20 Est GFR ( Amer) 49.3 ml/min 02/08/21 02:20 Est GFR (Non-Af Amer) 42.6 ml/min 02/08/21 02:20 BUN/Creatinine Ratio 23.6 (10-20) H 02/08/21 02:20 Glucose 216 mg/dl (70-99) H 02/08/21 02:20 Lactate 2.5 mmol/L (0.4-2.0) H* 02/08/21 02:20 Calcium 9.1 mg/dl (8.5-10.1) 02/08/21 02:20 Total Bilirubin 0.5 mg/dl (0.2-1) 02/08/21 02:20 AST 39 U/L (15-37) H 02/08/21 02:20 ALT 54 (12-78) 02/08/21 02:20 Alkaline Phosphatase 81 U/L (45-117) 02/08/21 02:20 Troponin I < 0.015 ng/ml (0-0.045) 02/08/21 02:20 NT-Pro-B Natriuret Pep 9268 pg/ml (0-1800) H 02/08/21 02:20 Total Protein 6.9 gm/dl (6.4-8.2) 02/08/21 02:20 Albumin 3.3 gm/dl (3.4-5.0) L 02/08/21 02:20 Globulin 3.6 gm/dl (2.5-4.0) 02/08/21 02:20 Albumin/Globulin Ratio 0.9 (0.9-2) 02/08/21 02:20 Lipase 110 U/L (73-393) 02/08/21 02:20 Urine Color Yellow 02/08/21 03:30 Urine Appearance Cloudy (Clear) A 02/08/21 03:30 Urine pH 5.5 (4.5-7.5) 02/08/21 03:30 Ur Specific [place] 1.008 (1.000-1.030) 02/08/21 03:30 Urine Protein Negative (Negative) 02/08/21 03:30 Urine Glucose (UA) Negative (Negative) 02/08/21 03:30 Urine Ketones Negative (Negative) 02/08/21 03:30 Urine Blood Trace (Negative) H 02/08/21 03:30 Urine Nitrite Negative (Negative) 02/08/21 03:30 Urine Bilirubin Negative (Negative) 02/08/21 03:30 Urine Urobilinogen Negative (Negative) 02/08/21 03:30 Ur Leukocyte Esterase 1+ (Negative) H 02/08/21 03:30 SARS-CoV-2 (PCR) NEGATIVE (Negative) 02/08/21 02:32 Influenza Type A (PCR) Negative (Neg) 02/08/21 02:32 Influenza Type B (PCR) Negative (Neg) 02/08/21 02:32 RSV (RT-PCR) Negative (Neg) 02/08/21 02:32 Diagnostic Findings Chest x-ray as per my interpretation cardiomegaly, congestion EKG as per my interpretation : Rate 110, paced rhythm
[2021-02-08] MEDS ORDERED: IPRATROPIUM BROMIDE NEB SOLN 0.02% 2.5 ML VIAL INH STA (04:21)
[2021-02-08] MEDS ORDERED: LEVALBUTEROL 1.25MG/0.5ML NEB INH STA (04:21)
[2021-02-08 04:22] LABS: Magnesium 2.3 mg/dl (1.8-2.4)
[2021-02-08] MEDS ORDERED: NITROGLYCERIN SL 0.4 MG/TAB TAB SL PRN (05:20)
[2021-02-08] MEDS ORDERED: PROMETHAZINE HCL 6.25 MG in SODIUM CHLORIDE 0.9% 50 ML IV PRN (05:20)
[2021-02-08] MEDS: HEPARIN SOD 5,000 UNIT/0.5 ML VIAL SQ SCH ×3 (06:46→19:56)
--- NOTE | 2021-02-08 07:01 | XRay Report ---
XR chest 1V portable CLINICAL HISTORY: SOB TECHNIQUE: Single frontal radiograph of the chest was obtained. Comparison: Comparison is made to chest one view 09/26/2020 FINDINGS: Stable dual lead pacemaker is seen. Cardiomegaly is noted. Bilateral lower lung predominant airspace opacities are seen. No evidence of pleural effusion or pneumothorax. IMPRESSION: Bilateral lower lung predominant airspace opacities which may represent atelectasis, pneumonia, and/o r aspiration. ACT 112: Negative or not required by law. Electronically signed by: Juanito Lennon M.D. 02/08/2021 7:00 AM
[2021-02-08] MEDS: LOTEMAX~ORDER AWAITING ACTION SCH ×2 (08:27→15:00)
[2021-02-08] MEDS: PANTOprazole 40 MG TAB PO SCH (08:28)
[2021-02-08] MEDS: ASPIRIN 81 MG ECTAB PO SCH (08:28)
[2021-02-08] MEDS: GABAPENTIN 300 MG CAP PO SCH ×3 (08:28→19:55)
[2021-02-08] MEDS: ARTIFICIAL TEARS OP SCH (08:32)
[2021-02-08] MEDS ORDERED: METOPROLOL SUCC 25MG EXT REL TAB PO SCH (09:00)
--- NOTE | 2021-02-08 09:33 | Cardiology Consultation ---
Date of Consultation February 08, 2021 Assessment & Plan (1) Acute HFrEF (heart failure with reduced ejection fraction): (2) Frequent unifocal PVCs: (3) Left bundle branch block (LBBB): (4) Non-ischemic cardiomyopathy: Patient is a complex 75-year-old female with prior documented nonischemic cardiomyopathy initially diagnosed in 2008. Patient had response to medical therapies improved LV systolic function but over the last 6 months has had once again decline in ejection fraction and symptomatic class III congestive heart failure despite medical therapies and biventricular pacer defibrillator insertion. Medical therapies have been limited by patient tolerance Patient presents once again in acute respiratory distress and decompensated systolic heart failure. Echocardiogram demonstrates severe LV dysfunction in a global manner Plan: Discussed findings in detail with the patient and goals of therapy addressed. Patient frustrated by cardiac function now limiting but ultimate goal should be improvement overall systolic function and survival Cardiomyopathy and heart failure needs aggressive medical therapy. Frequent ventricular ectopy may be contributing to declining LV function. We will discontinue metoprolol especially in light of patient poor tolerance and variable use. Initiate amiodarone 200 mg 4 times per day to suppress ventricular ectopy and hopefully slow heart rate to allow biventricular pacer more effective usage. Noted patient will require at least 48 to 72 hours monitor time Additional dose of IV furosemide this morning with additional depending on clinical response Continue to hold lisinopril but likely restart or substitute nitrates with hydralazine for afterload reduction this admission History of Present Illness Reason for Consultation: Acute on chronic systolic congestive heart failure Requesting Physician: Dr Freed Attending Physician: Leesa Freed MD History of Present Illness Patient is a 75-year-old female with ongoing cardiac issues 1. Nonischemic cardiomyopathy, LVEF 15% in 2008 improved to EF 45% 06/2019, with recent decline and symptomatic class III congestive heart failure 2. Status post Bi V pacemaker defibrillator 09/26/2020 [employer] Model: Sere na LINGO CLEANER-P [id number] 3. Chronic heart failure with reduced EF, NYHA class 2 4. Left bundle branch block 5. Sinus bradycardia 6. Hyperlipidemia 7. Frequent PVCs Patient is referred after admission last evening with acute respiratory distress requiring transient BiPAP. Patient still dyspneic this morning but improved. No current chest pains tachypalpitations. Feels bandlike sensation across abdomen episodes occur. Has been poorly tolerant of increase in medications for cardiomyopathy and notes marked fatigue with beta-blockers. Frequent ventricular ectopy on pacemaker interrogations and current telemetry. No fevers or chills no productive cough. No recent bleeding difficulties. No acute weight change. No irritation at pacemaker site Last evening's episode occurred at rest Allergies Allergy/AdvReac Type Severity Reaction Status Date / Time bee venom protein (honey bee) Allergy Severe ANAPHYLAXIS Verified 07/06/20 07:42 Iodinated Contrast Media Allergy Unknown SOB,CRACKLI Verified 07/06/20 07:42 NG,WHEEZING Sulfa (Sulfonamide Allergy Unknown HIVES Verified 07/06/20 07:42 Antibiotics) Home Medications Medication Instructions Recorded Confirmed Type aspirin 81 mg tablet,delayed 81 mg PO QAM 07/06/20 02/08/21 History release carboxymethylcellulose sodium 1 % 1 drp OPB QAM 07/06/20 02/08/21 History eye liquid gel drops (Refresh Liquigel) gabapentin 300 mg capsule See Rx Instructions .ROUTE .COMPLEX 07/06/20 02/08/21 History lisinopril 2.5 mg tablet 2.5 mg PO BID 07/06/20 02/08/21 History loteprednol etabonate 0.5 % eye 1 drp OPB HS 07/06/20 02/08/21 History gel drops (Lotemax) omeprazole 20 mg capsule,delayed 20 mg PO QAM 07/06/20 02/08/21 History release furosemide 20 mg tablet 20 mg PO QAM #30 tab 07/07/20 02/08/21 Rx metoprolol succinate 25 mg 25 mg PO DAILY #30 tab 09/26/20 02/08/21 Rx tablet,extended release 24 hr (Toprol XL) Patient History Social History Smoking Status: Former smoker Hx Alcohol Use: No Hx Substance Use: No Preferred Language: Qatari Communication Ability: Effective Leak Hunter Required: No Beliefs That Will Affect Care: Gnosticism Current Living Situation: Alone Current Living Situation Comment: 2 story home Feels Safe at Home: Yes Assistive Devices: Oxygen - Continuous Review of Systems Review of Systems: All systems reviewed & are unremarkable except as noted in HPI & below Physical Exam Constitutional: + thin; no acute distress Eyes: PERRL, conjunctivae normal, anicteric sclerae ENMT: external ear and nose normal, oropharynx normal Neck: trachea midline, no thyromegaly Respiratory: Auscultation: + rales (Bibasilar lower one third lung taylor) Cardiovascular: Rate/Rhythm: regular rate and regular rhythm (Paced) Heart Sounds: normal S1 and normal S2 Gastrointestinal (Abdomen): normal bowel sounds, soft, nontender, no hepatosplenomegaly Musculoskeletal: no cyanosis or clubbing, extremities motor strength 5/5 Skin: no rashes, warm and dry Neurologic: PERRL, EOMI, accommodation nl, no face palsy, no dysarthria Psychiatric: Orientation: alert and oriented x 3 Results & Data ([facility]) Vital Signs (Past 12 Hours) Vital Signs Temp Pulse Pulse Resp BP BP Pulse Ox 02/08/21 08:00 36.8 C 98 H 20 142/69 H 96 02/08/21 05:25 36.4 C L 87 18 129/78 100 02/08/21 04:54 86 18 120/74 98 02/08/21 03:45 78 16 127/76 97 02/08/21 03:00 84 17 117/80 97 02/08/21 02:52 79 16 123/60 99 02/08/21 02:28 99 02/08/21 02:16 115 H 39 H 99 02/08/21 02:15 102 H 22 153/102 H 99 Laboratory Results Laboratory Results - last 24 hr 02/08/21 02/08/21 02/08/21 02:20 02:20 02:20 WBC 8.24 RBC 4.43 Hgb 12.3 Hct 38.5 MCV 86.9 MCH 27.8 MCHC 31.9 L RDW Std Deviation 46.3 RDW Coeff of Heena 14.6 H Plt Count 205 MPV 11.2 H Immature Gran % (Auto) 0.1 Neut % (Auto) 55.1 Lymph % (Auto) 34.0 Walker % (Auto) 8.0 Eos % (Auto) 2.2 Baso % (Auto) 0.6 Neut # (Auto) 4.54 Lymph # (Auto) 2.80 Walker # (Auto) 0.66 H Eos # (Auto) 0.18 Baso # (Auto) 0.05 Immature Gran # (Auto) 0.01 PT 10.6 INR 1.0 APTT 23.4 PTT Ratio 0.9 VBG pH VBG pCO2 VBG pO2 VBG HCO3 VBG O2 Saturation VBG Base Excess Barometric Pressure Sodium 135 L Potassium 4.0 Chloride 104 Carbon Dioxide 27 Anion Gap 4.0 BUN 29 H Creatinine 1.23 H Est Cr Clr Drug Dosing 26.4 Est GFR ( Amer) 49.3 Est GFR (Non-Af Amer) 42.6 BUN/Creatinine Ratio 23.6 H Glucose 216 H Lactate Calcium 9.1 Magnesium 2.3 Total Bilirubin 0.5 AST 39 H ALT 54 Alkaline Phosphatase 81 Troponin I < 0.015 NT-Pro-B Natriuret Pep 9268 H Total Protein 6.9 Albumin 3.3 L Globulin 3.6 Albumin/Globulin Ratio 0.9 Lipase 110 TSH 3.940 Urine Color Urine Appearance Urine pH Ur Specific [place] Urine Protein Urine Glucose (UA) Urine Ketones Urine Blood Urine Nitrite Urine Bilirubin Urine Urobilinogen Ur Leukocyte Esterase Urine WBC (Auto) Urine RBC (Auto) U Hyaline Cast (Auto) U Epithel Cells (Auto) Urine Bacteria (Auto) Urine Yeast SARS-CoV-2 (PCR) Influenza Type A (PCR) Influenza Type B (PCR) RSV (RT-PCR) 02/08/21 02/08/21 02/08/21 02:20 02:32 02:44 WBC RBC Hgb Hct MCV MCH MCHC RDW Std Deviation RDW Coeff of Heena Plt Count MPV Immature Gran % (Auto) Neut % (Auto) Lymph % (Auto) [place] % (Auto) Eos % (Auto) Baso % (Auto) Neut # (Auto) Lymph # (Auto) Walker # (Auto) Eos # (Auto) Baso # (Auto) Immature Gran # (Auto) PT INR APTT PTT Ratio VBG pH 7.30 L VBG pCO2 48 VBG pO2 36 VBG HCO3 23 VBG O2 Saturation < 60.0 VBG Base Excess -3.3 Barometric Pressure 732.8 Sodium Potassium Chloride Carbon Dioxide Anion Gap BUN Creatinine Est Cr Clr Drug Dosing Est GFR ( Amer) Est GFR (Non-Af Amer) BUN/Creatinine Ratio Glucose Lactate 2.5 H* Calcium Magnesium Total Bilirubin AST ALT Alkaline Phosphatase Troponin I NT-Pro-B Natriuret Pep Total Protein Albumin Globulin Albumin/Globulin Ratio Lipase TSH Urine Color Urine Appearance Urine pH Ur Specific [place] Urine Protein Urine Glucose (UA) Urine Ketones Urine Blood Urine Nitrite Urine Bilirubin Urine Urobilinogen Ur Leukocyte Esterase Urine WBC (Auto) Urine RBC (Auto) U Hyaline Cast (Auto) U Epithel Cells (Auto) Urine Bacteria (Auto) Urine Yeast SARS-CoV-2 (PCR) NEGATIVE Influenza Type A (PCR) Negative Influenza Type B (PCR) Negative RSV (RT-PCR) Negative 02/08/21 02/08/21 03:30 04:27 WBC RBC Hgb Hct MCV MCH MCHC RDW Std Deviation RDW Coeff of Heena Plt Count MPV Immature Gran % (Auto) Neut % (Auto) Lymph % (Auto) Walker % (Auto) Eos % (Auto) Baso % (Auto) Neut # (Auto) Lymph # (Auto) Walker # (Auto) Eos # (Auto) Baso # (Auto) Immature Gran # (Auto) PT INR APTT PTT Ratio VBG pH VBG pCO2 VBG pO2 VBG HCO3 VBG O2 Saturation VBG Base Excess Barometric Pressure Sodium Potassium Chloride Carbon Dioxide Anion Gap BUN Creatinine Est Cr Clr Drug Dosing Est GFR ( Amer) Est GFR (Non-Af Amer) BUN/Creatinine Ratio Glucose Lactate 1.1 Calcium Magnesium Total Bilirubin AST ALT Alkaline Phosphatase Troponin I NT-Pro-B Natriuret Pep Total Protein Albumin Globulin Albumin/Globulin Ratio Lipase TSH Urine Color Yellow Urine Appearance Cloudy A Urine pH 5.5 Ur Specific [place] 1.008 Urine Protein Negative Urine Glucose (UA) Negative Urine Ketones Negative Urine Blood Trace H Urine Nitrite Negative Urine Bilirubin Negative Urine Urobilinogen Negative Ur Leukocyte Esterase 1+ H Urine WBC (Auto) 1-5 Urine RBC (Auto) 10-30 H U Hyaline Cast (Auto) 1-5 U Epithel Cells (Auto) 10-20 H Urine Bacteria (Auto) 1+ H Urine Yeast Not Reportable SARS-CoV-2 (PCR) Influenza Type A (PCR) Influenza Type B (PCR) RSV (RT-PCR)
[2021-02-08] MEDS: AMIODARONE 200 MG TAB PO SCH ×4 (11:07→19:55)
--- NOTE | 2021-02-08 14:03 | Hospitalist Progress Note ---
Date of Service February 08, 2021 Assessment & Plan (1) Acute hypoxemic respiratory failure: (2) Acute on chronic heart failure: Plan: 75-year-old lady with chronic systolic heart failure 2/2 nonischemic CM [EF 30 to 34%, TTE 2020], pulmonary HTN, valvular heart disease [mild TR, mild MR on recent echo], chronic LBBB, biventricular pacemaker, past tobacco use presented 02/08 to the ED with complaints of worsening shortness of breath without weight gain or edema complaints associated with dry cough, no fever or chills. #. Acute on chronic systolic heart failure #. 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 Last confinement June 2020 for decompensated heart failure, echo 2020 with EF of 30 to 34%. Recently her Lasix has been upped by her gyroscopic instrument tester in Toprol-XL has been reduced to half owing to fatigue/insomnia symptoms from medication. Patient unaware of snoring symptoms at home. This medication changes slightly improved her symptoms but she noted worsening shortness of breath on the night of arrival without chest pain. Patient was saturating in the 80s upon arrival of EMS at home. Patient was placed on nonrebreather mask at home and brought to the ED. In the ED patient needed BiPAP and Lasix was administered. Acute exacerbation of heart failure likely secondary to intolerance to aggressive medical therapy versus other etiology. Admitting BNP 9268 ( BNP in June 2020--> 4097). Admitting EKG showed ventricular paced rhythm with rate of 109. Admitting echo: LV borderline dilated with mild concentric LVH and severe global hypokinesis of LV with EF of 15 to 20%. Trace MR, trace TR. Patient reporting feeling better currently, still requiring 3 L nasal cannula oxygen at bedside exam. Strict I's and O's, getting total of 80 mg Lasix today, Lasix per cardiology. Cardiology on board: Frequent ventricular ectopy likely contributing to decline in LV function. DC metoprolol in light of patient poor tolerance. Initiate amiodarone 200 mg 4 times daily to suppress ventricular ectopy at likely slow heart rate for optimal working environment for biventricular PPM. Agrees with holding lisinopril, likely may switch to hydralazine and nitrate. #. SAM over CKD Baseline creatinine in 0.80s Admitting creatinine 1.23 Likely prerenal secondary to possibly cardiorenal Hold lisinopril, continue to monitor BMP daily. Patient is on Lasix today, expect to improve. #. Other chronic medical conditions: CAD, HTN Resume home meds when appropriate. Lisinopril on hold. Heparin subcu Full code Disposition: Currently uncertain, cardiology managing heart failure medications. Admission and Anticipated Discharge Date Admission Date: February 08, 2021 Subjective Patient was sitting up in bed, on 3 L nasal cannula oxygen, eating her lunch, NAD. No new acute events overnight. Patient does not use oxygen at home. Urinary catheter in situ with yellow urine collection. Patient reports shortness of breath getting better with oxygen. Patient denies headache/dizziness/chest pain/palpitation/other review of symptoms. Physical Exam Physical Exam: GENERAL: Alert and oriented x3. NAD, on 3L NC, thin HEENT: No pallor, no icterus. Pupils equal, round and reactive to light. Oral mucosa moist. NECK: No JVD, no neck masses. HEART: S1 and S2 heard. Regular rate and rhythm. No murmur, no gallop. RESPIRATORY SYSTEM: Normal AP diameter. No accessory muscle use. No wheezing, b/b crackles. ABDOMEN: Soft, bowel sounds present, nontender, no distention. CENTRAL NERVOUS SYSTEM: No facial droop. Speech is clear. Obeys simple commands. Moves extremities. EXTREMITIES: No edema, no erythema seen. Results & Data Results & Data ([facility]) Vital Signs (Past 12 Hours) Vital Signs Temp Pulse Pulse Resp BP BP Pulse Ox 02/08/21 12:18 36.5 C 84 18 132/58 L 97 02/08/21 08:00 36.8 C 98 H 20 142/69 H 96 02/08/21 05:25 36.4 C L 87 18 129/78 100 02/08/21 04:54 86 18 120/74 98 02/08/21 03:45 78 16 127/76 97 02/08/21 03:00 84 17 117/80 97 02/08/21 02:52 79 16 123/60 99 02/08/21 02:28 99 02/08/21 02:16 115 H 39 H 99 02/08/21 02:15 102 H 22 153/102 H 99
[2021-02-08] MEDS: DICLOFENAC SOD 1% GEL 100 GM TUBE EXT PRN (14:59)
[2021-02-08] MEDS: ACETAMINOPHEN 325 MG TAB PO PRN (19:55)
--- NOTE | 2021-02-08 22:37 | Electrocardiogram Report ---
Test Reason : Blood Pressure : / mmHG Vent. Rate : 109 BPM Atrial Rate : 109 BPM P-R Int : 000 ms QRS Dur : 112 ms QT Int : 376 ms P-R-T Axes : 074 012 097 degrees QTc Int : 506 ms Ventricular-paced rhythm Premature ventricular complexes Abnormal ECG When compared with ECG of 26-SEP-2020 14:54, Vent. rate has increased BY 22 BPM Confirmed by Markel Jimenez ([id number]) on 02/08/2021 10:37:25 PM Referred By: Per Lopez Confirmed By:Markel Jimenez
[2021-02-09] MEDS: LOTEMAX~ORDER AWAITING ACTION SCH ×3 (00:22→15:15)
[2021-02-09] MEDS: HEPARIN SOD 5,000 UNIT/0.5 ML VIAL SQ SCH ×3 (05:25→21:35)
[2021-02-09] MEDS: PANTOprazole 40 MG TAB PO SCH (08:34)
[2021-02-09] MEDS: ARTIFICIAL TEARS OP SCH (08:34)
[2021-02-09] MEDS: AMIODARONE 200 MG TAB PO SCH ×4 (08:35→21:37)
[2021-02-09] MEDS: ASPIRIN 81 MG ECTAB PO SCH (08:35)
[2021-02-09] MEDS: GABAPENTIN 300 MG CAP PO SCH ×3 (08:35→21:36)
[2021-02-09] MEDS: POLYETHYLENE (MIRALAX) 17 GM PACK PO SCH (11:59)
--- NOTE | 2021-02-09 12:12 | Cardiology Progress Note ---
Date of Service February 09, 2021 Assessment & Plan (1) Acute HFrEF (heart failure with reduced ejection fraction): (2) Frequent unifocal PVCs: (3) Left bundle branch block (LBBB): (4) Non-ischemic cardiomyopathy: Plan: Patient is a complex 75-year-old female with prior documented nonischemic cardiomyopathy initially diagnosed in 2008. Patient had response to medical therapies improved LV systolic function but over the last 6 months has had once again decline in ejection fraction and symptomatic class III congestive heart failure despite medical therapies and biventricular pacer defibrillator insertion. Medical therapies have been limited by patient tolerance Patient presents once again in acute respiratory distress and decompensated systolic heart failure. Echocardiogram demonstrates severe LV dysfunction in a global manner Plan: Clinically improved on exam rales resolved Still frequent ventricular ectopy on telemetry We will check renal function and likely give additional dose of diuretic today Continue amiodarone as prescribed continue telemetry at least an additional 24 to 48 hours EKG in a.m. We will consult case management to assess if patient qualifies through formulary for [facility] Admission and Anticipated Discharge Date Admission Date: February 08, 2021 Subjective Patient seen and examined, chart, medications, telemetry reviewed. Feels improved this morning but did not sleep last night. No chest pains or discomfort no tachypalpitations. Rhythm on telemetry ventricular paced frequent ventricular ectopy Review of Systems Review of Systems: All systems reviewed & are unremarkable except as noted in Subjective Physical Exam Constitutional: + thin; no acute distress Eyes: PERRL, conjunctivae normal, anicteric sclerae ENMT: external ear and nose normal, oropharynx normal Neck: trachea midline, no thyromegaly Respiratory: Auscultation: no rales (Substantially improved) Cardiovascular: Rate/Rhythm: regular rate and regular rhythm (Paced) Heart Sounds: normal S1 and normal S2 Gastrointestinal (Abdomen): normal bowel sounds, soft, nontender, no hepatosplenomegaly Musculoskeletal: no cyanosis or clubbing, extremities motor strength 5/5 Skin: no rashes, warm and dry Neurologic: PERRL, EOMI, accommodation nl, no face palsy, no dysarthria Psychiatric: Orientation: alert and oriented x 3 Results & Data ([facility]) Vital Signs (Past 12 Hours) Vital Signs Temp Pulse Pulse Resp BP Pulse Ox 02/09/21 08:20 37.1 C 79 20 124/63 96 02/09/21 07:13 71 02/09/21 04:31 36.6 C 73 16 102/58 L 96 02/09/21 00:28 82 Laboratory Results Laboratory Results - last 24 hr 02/09/21 02/09/21 12:09 12:09 WBC Pending RBC Pending Hgb Pending Hct Pending MCV Pending MCH Pending MCHC Pending Plt Count Pending Sodium Pending Potassium Pending Chloride Pending Carbon Dioxide Pending Anion Gap Pending BUN Pending Creatinine Pending Est Cr Clr Drug Dosing Pending Est GFR ( Amer) Pending Est GFR (Non-Af Amer) Pending BUN/Creatinine Ratio Pending Glucose Pending Calcium Pending
[2021-02-09 12:20] LABS: Basophils # (auto) 0.02 K/uL (0-0.2); Basophils % (auto) 0.4 %; Eosinophils # (auto) 0.09 K/uL (0-0.5); Eosinophils % (auto) 1.6 %; Hematocrit (blood only) 35.9 % (37-47); Hemoglobin 11.5 g/dL (12.0-16.0); Lymphocytes # (auto) 1.37 K/uL (1.2-3.4); Lymphocytes % (auto) 24.2 %; Mean Corpuscular Volume 84.3 fL (80-100); Mean Platelet Volume 10.6 fL (7.4-10.4); Monocytes # (auto) 0.77 K/uL (0.11-0.59); Monocytes % (auto) 13.6 %; Neutrophils # (auto) 3.42 K/uL (1.4-6.5); Neutrophils % (auto) 60.2 %; Platelet Count 160 K/uL (130-400); RDW Coefficient of Variation 14.7 % (11.5-14.5); Red Blood Count 4.26 M/uL (4.2-5.4); White Blood Count 5.67 K/uL (4.8-10.8)
[2021-02-09 12:51] LABS: BUN Creatinine Ratio 27.5 (10-20); Creatinine Clr Calc Pharmacy 35.1 ml/min; Est GFR (African American) 65.8 ml/min; Est GFR (Non-African American) 56.7 ml/min; Potassium 4.4 mmol/L (3.5-5.1)
[2021-02-09] MEDS ORDERED: FUROSEMIDE 40 MG TAB PO ONE (14:37)
--- NOTE | 2021-02-09 18:44 | Hospitalist Progress Note ---
Date of Service February 09, 2021 Assessment & Plan (1) Acute hypoxemic respiratory failure: (2) Acute on chronic heart failure: Plan: 75-year-old lady with chronic systolic heart failure 2/2 nonischemic CM [EF 30 to 34%, TTE 2020], pulmonary HTN, valvular heart disease [mild TR, mild MR on recent echo], chronic LBBB, biventricular pacemaker, past tobacco use presented 02/08 to the ED with complaints of worsening shortness of breath without weight gain or edema complaints associated with dry cough, no fever or chills. #. Acute on chronic systolic heart failure #. Acute hypoxic respiratory failure - 2/2 above (no home oxygen] Patient presented with orthopnea starting 3 weeks ago [employer], worsening to SOB at rest without weight gain or edema complaints. Last confinement June 2020 for decompensated heart failure, echo 2020 with EF of 30 to 34%. Recently her Lasix has been upped by her appellate law clerk in Toprol-XL has been reduced to half owing to fatigue/insomnia symptoms from medication. Patient unaware of snoring symptoms at home. This medication changes slightly improved her symptoms but she noted worsening shortness of breath on the night of arrival without chest pain. Patient was saturating in the 80s upon arrival of EMS at home. Patient was placed on nonrebreather mask at home and brought to the ED. In the ED patient needed BiPAP and Lasix was administered. Acute exacerbation of heart failure likely secondary to intolerance to aggressive medical therapy versus other etiology. Admitting BNP 9268 ( BNP in June 2020--> 4097). Admitting EKG showed ventricular paced rhythm with rate of 109. Admitting echo: LV borderline dilated with mild concentric LVH and severe global hypokinesis of LV with EF of 15 to 20%. Trace MR, trace TR. Patient reporting feeling better currently, on room air. Strict I's and O's, Lasix per cardiology. Cardiology on board: Frequent ventricular ectopy likely contributing to decline in LV function. DC metoprolol in light of patient poor tolerance. Initiate amiodarone 200 mg 4 times daily to suppress ventricular ectopy at likely slow heart rate for optimal working environment for biventricular PPM. Agrees with holding lisinopril, likely may switch to hydralazine and nitrate. EKG in a.m. #. SAM over CKD Baseline creatinine in 0.80s Admitting creatinine 1.23 Likely prerenal secondary to possibly cardiorenal Hold lisinopril, cardiology looking into starting Entresto Resolved. #. Other chronic medical conditions: CAD, HTN Resume home meds when appropriate. Lisinopril on hold. Heparin subcu Full code Disposition: Currently uncertain, cardiology managing heart failure medications. Admission and Anticipated Discharge Date Admission Date: February 08, 2021 Subjective Patient seen and examined at the bedside, on room air, NAD, no new acute events overnight. Patient reports feeling better and is eating well. Patient requesting for MiraLAX as he takes them at home daily. Patient denies fever/chills/headache/shortness of breath/other review of symptoms. Urinary catheter in situ with yellow urine collection. Per RN patient is doing better. Physical Exam Physical Exam: GENERAL: Alert and oriented x3. NAD, on room air, thin HEENT: No pallor, no icterus. Pupils equal, round and reactive to light. Oral mucosa moist. NECK: No JVD, no neck masses. HEART: S1 and S2 heard. Regular rate and rhythm. No murmur, no gallop. RESPIRATORY SYSTEM: Normal AP diameter. No accessory muscle use. No wheezing, mid to bibasilar crackles ABDOMEN: Soft, bowel sounds present, nontender, no distention. CENTRAL NERVOUS SYSTEM: No facial droop. Speech is clear. Obeys simple commands. Moves extremities. EXTREMITIES: No edema, no erythema seen. Results & Data Results & Data ([facility]) Vital Signs (Past 12 Hours) Vital Signs Temp Pulse Pulse Resp BP Pulse Ox 02/09/21 17:00 36.8 C 64 20 127/76 93 02/09/21 14:51 72 02/09/21 12:00 36.9 C 80 18 118/76 98 02/09/21 08:20 37.1 C 79 20 124/63 96 02/09/21 07:13 71
[2021-02-09] MEDS: ACETAMINOPHEN 325 MG TAB PO PRN (21:34)
[2021-02-09] MEDS: DICLOFENAC SOD 1% GEL 100 GM TUBE EXT PRN (21:38)
[2021-02-10] MEDS: LOTEMAX~ORDER AWAITING ACTION SCH ×4 (01:28→23:22)
[2021-02-10] MEDS: HEPARIN SOD 5,000 UNIT/0.5 ML VIAL SQ SCH ×3 (06:08→21:36)
[2021-02-10 06:13] LABS: BUN Creatinine Ratio 27.5 (10-20); Calcium 9.6 mg/dl (8.5-10.1); Creatinine Clr Calc Pharmacy 28.5 ml/min; Est GFR (African American) 50.8 ml/min; Est GFR (Non-African American) 43.9 ml/min
[2021-02-10] MEDS: ARTIFICIAL TEARS OP SCH (08:32)
[2021-02-10] MEDS: AMIODARONE 200 MG TAB PO SCH ×4 (08:32→21:30)
[2021-02-10] MEDS: POLYETHYLENE (MIRALAX) 17 GM PACK PO SCH (08:32)
[2021-02-10] MEDS: GABAPENTIN 300 MG CAP PO SCH ×3 (08:32→21:27)
[2021-02-10] MEDS: PANTOprazole 40 MG TAB PO SCH (08:32)
[2021-02-10] MEDS: ASPIRIN 81 MG ECTAB PO SCH (08:32)
[2021-02-10] MEDS: VALSARTAN/SACUBITRIL 26/24MG TAB PO SCH ×2 (10:55→21:28)
--- NOTE | 2021-02-10 12:40 | Cardiology Progress Note ---
Date of Service February 10, 2021 Assessment & Plan (1) Acute HFrEF (heart failure with reduced ejection fraction): (2) Frequent unifocal PVCs: (3) Left bundle branch block (LBBB): (4) Non-ischemic cardiomyopathy: Plan: Patient is a complex 75-year-old female with prior documented nonischemic cardiomyopathy initially diagnosed in 2008. Patient had response to medical therapies improved LV systolic function but over the last 6 months has had once again decline in ejection fraction and symptomatic class III congestive heart failure despite medical therapies and biventricular pacer defibrillator insertion. Medical therapies have been limited by patient tolerance Patient presents once again in acute respiratory distress and decompensated systolic heart failure. Echocardiogram demonstrates severe LV dysfunction in a global manner Plan: Patient now appears euvolemic by examination. No further diuretics today Entresto to be initiated today Continue amiodarone as ordered Admission and Anticipated Discharge Date Admission Date: February 08, 2021 Subjective Patient seen and examined, chart, medications, telemetry reviewed Still not sleeping well at night but otherwise no complaints. Dyspnea has resolved. No wheezing or cough no chest pain. No arrhythmias on telemetry ventricular ectopy slightly reduced. More frequent biventricular ventricular pacing as desired Review of Systems Review of Systems: All systems reviewed & are unremarkable except as noted in Subjective Physical Exam Constitutional: + thin; no acute distress Eyes: PERRL, conjunctivae normal, anicteric sclerae ENMT: external ear and nose normal, oropharynx normal Neck: trachea midline, no thyromegaly Respiratory: Auscultation: no rales (Substantially improved) Cardiovascular: Rate/Rhythm: regular rate and regular rhythm (Paced) Heart Sounds: normal S1 and normal S2 Gastrointestinal (Abdomen): normal bowel sounds, soft, nontender, no hepatosplenomegaly Musculoskeletal: no cyanosis or clubbing, extremities motor strength 5/5 Skin: no rashes, warm and dry Neurologic: PERRL, EOMI, accommodation nl, no face palsy, no dysarthria Psychiatric: Orientation: alert and oriented x 3 Results & Data ([facility]) Vital Signs (Past 12 Hours) Vital Signs Temp Pulse Pulse Resp BP Pulse Ox 02/10/21 11:43 36.4 C L 75 16 113/71 96 02/10/21 07:23 36.4 C L 65 17 124/75 94 02/10/21 07:21 71 02/10/21 03:16 36.4 C L 72 16 110/55 L 94 Laboratory Results Laboratory Results - last 24 hr 02/09/21 02/10/21 12:09 05:25 Sodium 134 L 135 L Potassium 4.4 4.0 Chloride 104 101 Carbon Dioxide 24 26 Anion Gap 6.0 8.0 BUN 27 H 33 H Creatinine 0.97 1.20 Est Cr Clr Drug Dosing 35.1 28.5 Est GFR ( Amer) 65.8 50.8 Est GFR (Non-Af Amer) 56.7 43.9 BUN/Creatinine Ratio 27.5 H 27.5 H Glucose 121 H 100 H Calcium 9.0 9.6
[2021-02-10] MEDS ORDERED: MELATONIN 3 MG TAB PO PRN (12:44)
--- NOTE | 2021-02-10 14:23 | Electrocardiogram Report ---
Test Reason : Blood Pressure : / mmHG Vent. Rate : 078 BPM Atrial Rate : 030 BPM P-R Int : 000 ms QRS Dur : 162 ms QT Int : 498 ms P-R-T Axes : 000 253 118 degrees QTc Int : 567 ms AV dual-paced rhythm with frequent Premature ventricular complexes Abnormal ECG When compared with ECG of 08-FEB-2021 02:14, Vent. rate has decreased BY 31 BPM Atrial Paced rhythm has replaced NSR Confirmed by Kaden Mai ([id number]) on 02/10/2021 2:23:18 PM Referred By: Per Lopez Confirmed By:Kaden Mai
--- NOTE | 2021-02-10 19:05 | Hospitalist Progress Note ---
Date of Service February 10, 2021 Assessment & Plan (1) Acute hypoxemic respiratory failure: (2) Acute on chronic heart failure: Plan: 75-year-old lady with chronic systolic heart failure 2/2 nonischemic CM [EF 30 to 34%, TTE 2020], pulmonary HTN, valvular heart disease [mild TR, mild MR on recent echo], chronic LBBB, biventricular pacemaker, past tobacco use presented 02/08 to the ED with complaints of worsening shortness of breath without weight gain or edema complaints associated with dry cough, no fever or chills. #. Acute on chronic systolic heart failure #. Acute hypoxic respiratory failure - 2/2 above (no home oxygen] Patient presented with orthopnea starting 3 weeks ago [employer], worsening to SOB at rest without weight gain or edema complaints. Last confinement June 2020 for decompensated heart failure, echo 2020 with EF of 30 to 34%. Recently her Lasix has been upped by her chief of hospital medicine in Toprol-XL has been reduced to half owing to fatigue/insomnia symptoms from medication. Patient unaware of snoring symptoms at home. This medication changes slightly improved her symptoms but she noted worsening shortness of breath on the night of arrival without chest pain. Patient was saturating in the 80s upon arrival of EMS at home. Patient was placed on nonrebreather mask at home and brought to the ED. In the ED patient needed BiPAP and Lasix was administered. Acute exacerbation of heart failure likely secondary to intolerance to aggressive medical therapy versus other etiology. Admitting BNP 9268 ( BNP in June 2020--> 4097). Admitting EKG showed ventricular paced rhythm with rate of 109. Admitting echo: LV borderline dilated with mild concentric LVH and severe global hypokinesis of LV with EF of 15 to 20%. Trace MR, trace TR. Patient reporting feeling better currently, on room air. Strict I's and O's, Lasix per cardiology. Cardiology on board: Frequent ventricular ectopy likely contributing to decline in LV function. DC metoprolol in light of patient poor tolerance. Initiate amiodarone 200 mg 4 times daily to suppress ventricular ectopy that likely slow heart rate for optimal working environment for biventricular PPM. Entresto started 02/10. #. SAM over CKD Baseline creatinine in 0.80s Admitting creatinine 1.23 Likely prerenal secondary to possibly cardiorenal Resolved. #. Other chronic medical conditions: CAD, HTN Resume home meds when appropriate. Lisinopril on hold. Heparin subcu Full code Disposition: Pending medication optimization, expect 1-2 more days. Admission and Anticipated Discharge Date Admission Date: February 08, 2021 Subjective Patient seen and examined at bedside. Patient was sitting up in chair, on room air, NAD, not able to sleep overnight. Patient reports improving shortness of breath. Patient denies fever/chills/headache/cough/chest pain/palpitation/other review of symptoms. Physical Exam Physical Exam: GENERAL: Alert and oriented x3. NAD, on room air, thin HEENT: No pallor, no icterus. Pupils equal, round and reactive to light. Oral mucosa moist. NECK: No JVD, no neck masses. HEART: S1 and S2 heard. Regular rate and rhythm. No murmur, no gallop. RESPIRATORY SYSTEM: Normal AP diameter. No accessory muscle use. No wheezing, bibasilar crackles ABDOMEN: Soft, bowel sounds present, nontender, no distention. CENTRAL NERVOUS SYSTEM: No facial droop. Speech is clear. Obeys simple commands. Moves extremities. EXTREMITIES: No edema, no erythema seen. Results & Data Results & Data ([facility]) Vital Signs (Past 12 Hours) Vital Signs Temp Pulse Pulse Resp BP BP Pulse Ox 02/10/21 15:25 36.8 C 71 17 114/76 92 02/10/21 15:00 72 02/10/21 11:43 36.4 C L 75 16 113/71 96 02/10/21 07:23 36.4 C L 65 17 124/75 94 02/10/21 07:21 71
[2021-02-10] MEDS: ACETAMINOPHEN 325 MG TAB PO PRN (21:35)
[2021-02-10] MEDS: DICLOFENAC SOD 1% GEL 100 GM TUBE EXT PRN (21:36)
[2021-02-11] MEDS: HEPARIN SOD 5,000 UNIT/0.5 ML VIAL SQ SCH (06:22)
[2021-02-11] MEDS: ARTIFICIAL TEARS OP SCH (08:06)
[2021-02-11] MEDS: LOTEMAX~ORDER AWAITING ACTION SCH (08:06)
[2021-02-11] MEDS: AMIODARONE 200 MG TAB PO SCH (08:07)
[2021-02-11] MEDS: POLYETHYLENE (MIRALAX) 17 GM PACK PO SCH (08:07)
[2021-02-11] MEDS: GABAPENTIN 300 MG CAP PO SCH (08:07)
[2021-02-11] MEDS: ASPIRIN 81 MG ECTAB PO SCH (08:07)
[2021-02-11] MEDS: PANTOprazole 40 MG TAB PO SCH (08:07)
[2021-02-11] MEDS: VALSARTAN/SACUBITRIL 26/24MG TAB PO SCH (08:07)
[2021-02-11 08:31] LABS: BUN Creatinine Ratio 25.6 (10-20); Creatinine Clr Calc Pharmacy 31.8 ml/min; Est GFR (African American) 57.7 ml/min; Est GFR (Non-African American) 49.8 ml/min
--- NOTE | 2021-02-11 11:12 | Cardiology Progress Note ---
Date of Service February 11, 2021 Assessment & Plan (1) Acute HFrEF (heart failure with reduced ejection fraction): (2) Frequent unifocal PVCs: (3) Left bundle branch block (LBBB): (4) Non-ischemic cardiomyopathy: Plan: Patient is a complex 75-year-old female with prior documented nonischemic cardiomyopathy initially diagnosed in 2008. Patient had response to medical therapies improved LV systolic function but over the last 6 months has had once again decline in ejection fraction and symptomatic class III congestive heart failure despite medical therapies and biventricular pacer defibrillator insertion. Medical therapies have been limited by patient tolerance Patient presents once again in acute respiratory distress and decompensated systolic heart failure. Echocardiogram demonstrates severe LV dysfunction in a global manner Plan: Patient now appears euvolemic by examination. Tolerating medical regimen well with improved ventricular ectopy, improved biventricular pacing Plan: Patient to be discharged today on amiodarone 200 mg twice per day, current Entresto dose, patient to resume furosemide 20 mg 5 days/week with CHF instructions, daily weights Follow-up cardiology 1 to 2 weeks, appointment being arranged Admission and Anticipated Discharge Date Admission Date: February 08, 2021 Subjective Patient seen and examined, chart, medications, telemetry reviewed. Clinically improved patient slept well last night no chest pains tachypalpitations dizziness. No orthopnea. Tolerating medications. Physical Exam Constitutional: + thin; no acute distress Eyes: PERRL, conjunctivae normal, anicteric sclerae ENMT: external ear and nose normal, oropharynx normal Neck: trachea midline, no thyromegaly Respiratory: Auscultation: no rales (Substantially improved) Cardiovascular: Rate/Rhythm: regular rate and regular rhythm (Paced) Heart Sounds: normal S1 and normal S2 Gastrointestinal (Abdomen): normal bowel sounds, soft, nontender, no hepatosplenomegaly Musculoskeletal: no cyanosis or clubbing, extremities motor strength 5/5 Skin: no rashes, warm and dry Neurologic: PERRL, EOMI, accommodation nl, no face palsy, no dysarthria Psychiatric: Orientation: alert and oriented x 3 Results & Data ([facility]) Vital Signs (Past 12 Hours) Vital Signs Temp Pulse Pulse Resp BP BP Pulse Ox 02/11/21 07:57 36.4 C L 71 18 97/61 L 99 02/11/21 07:23 70 02/11/21 05:38 79 12/20/21 04:33 36.4 C L 76 20 103/65 97 02/11/21 00:26 36.5 C 75 16 111/69 96 Laboratory Results Laboratory Results - last 24 hr 02/11/21 07:32 Sodium 136 Potassium 4.0 Chloride 104 Carbon Dioxide 25 Anion Gap 7.0 BUN 28 H Creatinine 1.08 Est Cr Clr Drug Dosing 31.8 Est GFR ( Amer) 57.7 Est GFR (Non-Af Amer) 49.8 BUN/Creatinine Ratio 25.6 H Glucose 88 Calcium 9.0
[2021-02-11] MEDS ORDERED: AMIODARONE 200 MG TAB PO SCH (11:30)
--- NOTE | 2021-02-11 12:44 | Discharge Summary ---
Date of Service February 11, 2021 Admission HPI Per Admitting Provider History obtained from patient and records. Medical history significant for chronic systolic heart failure secondary to nonischemic cardiomyopathy (EF 30 to 34%, TTE 2020), pulmonary hypertension, valvular heart disease (mild TR, mild MR on recent echo), chronic LBBB, biventricular PPM, past tobacco abuse. Last confinement June 2020 for decompensated heart failure. 3 weeks ago, patient noted orthopnea, exertional S OB symptoms without weight gain or edema complaints. Dry cough and crackling in the lungs without fever, chills. 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 Patient reduce Toprol-XL to one half tab daily owing to fatigue, insomnia symptoms from medication. Patient unaware of snoring symptoms at home. Some improvement in symptoms as per patient. Patient noted worsening shortness of breath symptoms last night without chest pain. Compliant with home medications. Denies dietary indiscretion. O2 sats 80s upon arrival of EMS at patient home. Patient placed on nonrebreather mask at home. At the ER, BiPAP initiated and Lasix administered for CHF. Patient feels much better. 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 Admission Exam Per Admitting Provider GENERAL: Comfortable, slightly anxious, underweight, no respiratory distress SKIN: Normal color, warm HEENT: [place] palpebral conjunctivae, no ptosis, dry buccal mucosa, O2 mask in place NECK : Supple, no tenderness CHEST : Decreased breath sounds, expiratory wheezes, no tenderness HEART : Diminished S1-S2, systolic murmur ABDOMEN: Some distention, nontender EXTREMITIES : Minimal LE swelling, no LE tenderness, no other conspicuous deformities noted NEUROLOGIC : Coherent, no facial asymmetry, no other gross focality Principal Diagnosis Acute on chronic heart failure with reduced ejection fraction. Discharge Exam GENERAL: Alert and oriented x3. NAD, on room air, thin HEENT: No pallor, no icterus. Pupils equal, round and reactive to light. Oral mucosa moist. NECK: No JVD, no neck masses. HEART: S1 and S2 heard. Regular rate and rhythm. No murmur, no gallop. RESPIRATORY SYSTEM: Normal AP diameter. No accessory muscle use. No wheezing, no crackles ABDOMEN: Soft, bowel sounds present, nontender, no distention. CENTRAL NERVOUS SYSTEM: No facial droop. Speech is clear. Obeys simple commands. Moves extremities. EXTREMITIES: No edema, no erythema seen. Discharge Data Allergies Allergy/AdvReac Type Severity Reaction Status Date / Time bee venom protein (honey bee) Allergy Severe ANAPHYLAXIS Verified 07/06/20 07:42 Iodinated Contrast Media Allergy Unknown SOB,CRACKLI Verified 07/06/20 07:42 NG,WHEEZING Sulfa (Sulfonamide Allergy Unknown HIVES Verified 07/06/20 07:42 Antibiotics) Consultations 02/08/21 04:03 ED Decision to Admit Stat 02/08/21 05:20 Consult Cardiology Routine Hospital Course (1) Acute hypoxemic respiratory failure: (2) Acute on chronic heart failure: 75-year-old lady with chronic systolic heart failure 2/2 nonischemic CM [EF 30 to 34%, TTE 2020], pulmonary HTN, valvular heart disease [mild TR, mild MR on recent echo], chronic LBBB, biventricular pacemaker, past tobacco use presented 02/08 to the ED with complaints of worsening shortness of breath without weight gain or edema complaints associated with dry cough, no fever or chills. She was managed for the following while in hospital: #. Acute on chronic systolic heart failure #. 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 Last confinement June 2020 for decompensated heart failure, echo 2020 with EF of 30 to 34%. Recently her Lasix has been upped by her centrex radio operator in Toprol-XL has been reduced to half owing to fatigue/insomnia symptoms from medication. Patient unaware of snoring symptoms at home. This medication changes slightly improved her symptoms but she noted worsening shortness of breath on the night of arrival without chest pain. Patient was saturating in the 80s upon arrival of EMS at home. Patient was placed on nonrebreather mask at home and brought to the ED. In the ED patient needed BiPAP and Lasix was administered. Acute exacerbation of heart failure likely secondary to intolerance to aggressive medical therapy versus other etiology. Admitting BNP 9268 ( BNP in June 2020--> 4097). Admitting EKG showed ventricular paced rhythm with rate of 109. Admitting echo: LV borderline dilated with mild concentric LVH and severe global hypokinesis of LV with EF of 15 to 20%. Trace MR, trace TR. Patient reporting feeling better currently, on room air on the day of discharge. Maintain heart healthy diet, fluid restriction to 2000 mL a day. Cardiology evaluated the patient while inpatient, discontinued metoprolol and lisinopril. Started on Entresto and amiodarone. Follow-up with cardiology in 1 to 2 weeks time. Follow-up with your primary care physician. #. SAM over CKD Baseline creatinine in 0.80s Admitting creatinine 1.23 Likely prerenal secondary to possibly cardiorenal Resolved. #. Other chronic medical conditions: CAD, HTN Resume home meds when appropriate. Heparin subcu Full code Disposition: Patient being discharged home with following instruction at the point of discharge: Follow-up with your primary care physician within a week time. Your cardiac medications were optimized while inpatient by cardiology, take medications as prescribed --> your lisinopril and metoprolol has been stopped. You have been started on amiodarone and Entresto. Continue with your current regimen of furosemide 20 mg 5 days a week. Follow-up with cardiology in 1 to 2 weeks time. Maintain heart healthy diet and fluid restriction to 2000 mL/day CHF instructions were given. Total Time Total Time Spent Total Time Spent (In Minutes): 40 Discharge Plan Discharge Items Patient Disposition: Home - Self-Care Reason For Visit: RESP FAILURE CHF Discharge Diagnosis: Acute on chronic heart failure with reduced ejection fraction Activity: Resume your previous activity Non-emergency contact: Primary Care Provider Call non-emergency contact if: you have any medication questions, your symptoms worsen and your temperature is above 101 Follow-up/Referrals: Noel Perry DO [Primary Care Provider] - (Date & Time 02/14/2021 2:40 PM Provider Noel Perry DO Department [facility] ) Diet: Heart Healthy Fluids: 2000ml (8 cups) Addtl Attending Provider Instructions: Follow-up with your primary care physician within a week time. Your cardiac medications were optimized while inpatient by cardiology, take medications as prescribed --> your lisinopril and metoprolol has been stopped. You have been started on amiodarone and Entresto. Continue with your current regimen of furosemide 20 mg 5 days a week. Follow-up with cardiology in 1 to 2 weeks time. Maintain heart healthy diet and fluid restriction to 2000 mL/day Call 911 and go to the Emergency Room if: * You have tightness or pain in your chest that does not go away with rest or Nitroglycerin * You are very short of breath even with rest Call your doctor if any of the following symptoms or problems start or get worse: * Shortness of breath or difficulty breathing * Wake up at night short of breath * Chest pain * Cough * Swelling of your hands, fee, or legs * More fatigued or tired with your normal activity * Palpitations - sudden fast heart beats WEIGHT * Weigh yourself every morning after using the bathroom. * Use the same scale. * Wear the same amount of clothing. * Write your weight down on your chart. * Call your doctor if you gain more than 2-3 pounds in 1-2 days. MEDICATIONS * Use this discharge instruction sheet for instructions. * Take your medications at the time your doctor ordered. * Do not skip a dose of your medicines. * If you miss a dose of medicine, take as soon as possible, but DO NOT DOUBLE A DOSE. * Read your medicine information when you get home. * Know all of the side effects of your medicine. * Call your doctor's office if you have any side effects. * Be sure all of your doctors know what medicine and herbs you take (including cold, flu, and herbal medicine). * Pain Medicine: If you do not get relief from your pain, please call your doctor for help. Take the following with you to your follow-up doctor appointments: * Weight Chart * Medication List * List of questions Do not drink excessive alcohol, beer or wine. Pending Studies at Discharge: No Stand-Alone Forms: [email or web address], Smoking Cessation Medications and DC Order Prescriptions: New amiodarone 200 mg Tablet 200 mg PO BID Qty: 60 RF: 0 Entresto 24-26 mg Tablet 0.5 tab PO BID Qty: 15 RF: 0 Continued aspirin 81 mg Tablet,Delayed Release (Dr/Ec) 81 mg PO QAM RF: 0 gabapentin 300 mg capsule See Rx Instructions .ROUTE .COMPLEX RF: 0 omeprazole 20 mg capsule,delayed release(DR/EC) 20 mg PO QAM RF: 0 Refresh Liquigel 1 % Drops, Liquid Gel 1 drp OPB QAM RF: 0 loteprednol etabonate [Lotemax] 0.5 % drops,gel 1 drp OPB HS RF: 0 furosemide 20 mg Tablet 20 mg PO QAM Qty: 30 RF: 0 Discontinued metoprolol succinate [Toprol XL] 25 mg tablet extended release 24 hr 25 mg PO DAILY Qty: 30 RF: 11 lisinopril 2.5 mg tablet 2.5 mg PO BID RF: 0 Discharge Orders: Discharge Order (Routine); Ordered 02/11/21 Ordered By: Leesa Freed Admission Data Admit Date/Time: 02/08/21 04:21 Attending Provider: Leesa Freed Admit Provider: Harvinder Spencer Primary Care Provider: Noel Perry Other Providers: Harvinder Spencer ; Carl Colvin ; Randy Singer ; Per Lopez ; Juan F Sampson ; Robby Shukla ; Ramirez Irvin ; Cristela Gibbs ; Yelena Seaman ; Evelyn Geronimo ; Valente Morgan
== END 2021-02-11 14:32 | disposition home or self-care (01) | DRG 291 ==
LOC: ED 02:07 → 2S 04:21

== ENCOUNTER 2022-09-19 23:40 | Inpatient (IN) ==
[2022-09-20] MEDS ORDERED: SODIUM CHLORIDE 0.9% 500 ML IV SCH
--- NOTE | 2022-09-20 00:03 | Emergency Department Note ---
Impression & Plan Weakness, Diarrhea, Dyspnea, SAM (acute kidney injury) ED Provider Note ED Provider Note NAME: WILLIAM HUERTAS AGE:77 SEX: Female : 1945 ARRIVES VIA: EMS INFORMANT: Patient ED PROVIDER(s): Megha Michelle DO CHIEF COMPLAINT: Weakness, diarrhea, shortness of breath HPI: This is a 77-year-old female who presents emergency room due to concern for weakness, diarrhea, and shortness of breath. Patient states she began feeling unwell 3 days ago. She denies any black or bloody stools. She states she has not had much of an appetite and has not had much to eat or drink recently. She denies any recent change in medications or known sick contact. No recent travel. Patient states she does have significant cardiac history and has a pacemaker. She states she did see cardiology 2 weeks ago. Her usual cardiolog ist is Dr. Lopez. She denies fevers or chills. Patient was concern for possible congestive heart failure. PAST MEDICAL HISTORY:See Below PAST SURGICAL HISTORY:See Below FAMILY HISTORY:See Below SOCIAL HISTORY:See Below HOME MEDICATIONS:See Below ALLERGIES:See Below VITALS:See Below PHYSICAL EXAMINATION: GENERAL: alert, ill appearing, well nourished, no distress, non-toxic EYE EXAM: normal conjunctiva, PERRL and EOM's grossly intact OROPHARYNX: no exudate, no erythema, lips, buccal mucosa, and tongue normal and mucous membranes are moist NECK: supple, no nuchal rigidity, no adenopathy, non-tender LUNGS: Clear to auscultation. Normal chest wall mechanics, no w/r/r, no tachypnea, no increased work of breathing HEART: no murmurs, S1 normal and S2 normal ABDOMEN: abdomen soft, non-tender, normo-active bowel sounds, no masses, no rebound or guarding. BACK: Back is symmetrical on inspection and there is no deformity, no midline tenderness, no CVA tenderness. SKIN: no rashes, petechiae, orbruising UPPER EXTREMITIES: upper extremities are grossly normal. FROM, nml pulses b/l. LOWER EXTREMITIES: No pitting edema. FROM, nml pulses b/l. NEURO EXAM: Normal sensorium, cranial nerves II-XII grossly intact, normal speech, no facial droop,nogross weakness of arms, no gross weakness of legs. Gross sensation intact. No ataxia. Vital Signs: reviewed and remarkable Differential Diagnosis: CHF, pneumonia, ACS, pericarditis/Myocarditis, pericardial effusion, viral syndrome, medication ADR, SAM, C. difficile, as well as others were considered MEDICAL DECISION MAKING: This is a 77-year-old female presents emergency department with 3 days of worsening weakness, diarrhea, difficulty breathing. Patient with significant cardiac history. She was afebrile and vital signs stable. Labs are drawn and sent, IV established, EKG and chest x-ray performed bedside and interpreted by me and patient monitored on telemetry. She was started on very low maintenance IV fluids due to history of CHF. Nasal swab obtained and was reassuring. Patient noted to have SAM compared to prior levels of her creatinine, I suspect this is secondary to dehydration due to GI losses. Patient states that does not feel like when she has had CHF previously. Patient does use a diuretic 3 times a day. Patient had no abdominal pain. Stool culture pending, recollects of potassium and AST pending additionally at the time of discussion with the hospitalist. Patient's BNP and troponin elevated, although hard to evaluate in the setting of chronic heart problems, history of CHF, and accompanying SAM. UA concerning for possible evolving UTI however suboptimal specimen with greater than 30 epis. Given advanced age and recent diarrhea, patient covered with IV Rocephin as a precaution. Urine culture pending. Case discussed with on-call [facility] hospitalist for additional evaluation and management. Patient was made aware of all results, verbalized understanding, was in agreement with the plan. Consultation(s): [id number]: Discussed with Dr. Durant for additional evaluation and treatment. ER Treatment Provided: See below Diagnostics Interpreted By Me: -EC, rightward axis, prolonged intervals consistent with device, nonspecific ST/T wave changes -Cardiac Monitoring: An order was placed for continuous cardiac monitoring. The monitor shows a rate of 80 with normal sinus rhythm. -Laboratory studies: As stated above and show below. -Imaging studies: X-ray Chest: A single view study of the chest was reviewed and was negative for effusion, pulmonary edema, or wide mediastinum. Mild cardiomegaly noted, pacer noted additionally. Slightly increased interstitial markings noted to the right lower lobe however improved compared to prior. Triage Nursing Note Reviewed Prior/Outside Records Reviewed -most recent cardiology visit with ALEKSANDRA Howell, reviewed Past Med/Surg History Social History Smoking Status: Never smoker Hx Alcohol Use: No Hx Substance Use: No Preferred Language: Divehi Communication Ability: Effective [employer] Aircraft Required: No Beliefs That Will Affect Care: Adventist Current Living Situation: Alone Current Living Situation Comment: 2 story home How many Children do You have: 0 Feels Safe at Home: Yes Assistive Devices: None Allergies Allergies Allergy/AdvReac Type Severity Reaction Status Date / Time bee venom protein (honey bee) Allergy Severe ANAPHYLAXIS Verified 09/20/22 01:06 nickel Allergy Mild Redness of Verified 09/20/22 01:06 Skin Iodinated Contrast Media Allergy Unknown SOB,CRACKLI Verified 09/20/22 01:06 NG,WHEEZING Sulfa (Sulfonamide Allergy Unknown HIVES Verified 09/20/22 01:06 Antibiotics) Home Meds Home Medications Medication Instructions Recorded Confirmed aspirin 81 mg tablet,delayed 81 mg PO QAM 07/06/20 09/20/22 release gabapentin 300 mg capsule 300 mg PO QID 07/06/20 09/20/22 loteprednol etabonate 0.5 % eye 1 drp OPB BID 07/06/20 09/20/22 gel drops (Lotemax) amiodarone 200 mg tablet 100 mg PO Q OTHER DAY 09/20/22 09/20/22 furosemide 20 mg tablet See Rx Instructions .Route .COMPLEX 09/20/22 09/20/22 levothyroxine 25 mcg tablet 25 mcg PO DAILYBB 09/20/22 09/20/22 pantoprazole 20 mg tablet,delayed 20 mg PO AMHS 09/20/22 09/20/22 release Previous Rx's Medication Instructions Recorded sacubitril 24 mg-valsartan 26 mg 0.5 tab PO BID #15 tabs 02/11/21 tablet (Entresto) Results & Data (ED) Vital Signs Vital Signs - 24 hr 09/19/22 23:44 09/20/22 00:22 09/20/22 00:22 Temperature 36.5 C Temperature Source Temporal Artery Scan Pulse Rate 83 Pulse Rate from SpO2 Sensor Respiratory Rate 17 Respiratory Effort / Characteristics Non-Labored Spontaneous Non-Labored Spontaneous Respiratory Depth Normal Normal Respiratory Pattern Regular Blood Pressure 111/65 Blood Pressure Mean 80 Blood Pressure Position Sitting Pulse Oximetry 96 Oxygen Delivery Method Room Air Room Air Room Air Oxygen Flow Rate Sepsis Recent Fever Within 48 Hours No Sepsis New/Unexplained Change in Mental Status No Sepsis Action Taken by Nursing No Action Required 09/20/22 00:37 09/20/22 02:30 Temperature Temperature Source Pulse Rate 94 H 92 H Pulse Rate from SpO2 Sensor 92 H Respiratory Rate 16 Respiratory Effort / Characteristics Respiratory Depth Respiratory Pattern Blood Pressure 111/66 Blood Pressure Mean 81 Blood Pressure Position Pulse Oximetry 98 Oxygen Delivery Method Nasal Cannula Oxygen Flow Rate 2 Sepsis Recent Fever Within 48 Hours Sepsis New/Unexplained Change in Mental Status Sepsis Action Taken by Nursing Laboratory Data 09/20/22 00:10 09/20/22 01:51 Lab Results 09/20/22 09/20/22 09/20/22 Range/Units 00:10 00:10 00:10 WBC 5.93 (4.8-10.8) K/ul RBC 4.08 L (4.20-5.40) M/uL Hgb 13.2 (12.0-16.0) g/dl Hct 39.7 (37.0-47.0) % MCV 97.3 (80.0-100.0) fL MCH 32.4 (25.0-34.0) pg MCHC 33.2 (32.0-36.0) g/dL RDW Std Deviation 50.1 H (36.4-46.3) fL RDW Coeff of Heena 14.7 H (11.5-14.5) % Plt Count 152 (130-400) K/uL MPV 11.2 (9.4-12.4) fL Immature Gran % (Auto) 0.2 % Neut % (Auto) 69.1 % Lymph % (Auto) 18.7 % [place] % (Auto) 9.9 % Eos % (Auto) 1.3 % Baso % (Auto) 0.8 % Neut # (Auto) 4.09 (1.40-6.50) K/uL Lymph # (Auto) 1.11 L (1.2-3.4) K/uL [place] # (Auto) 0.59 (0.11-0.59) K/uL Eos # (Auto) 0.08 (0-0.50) K/uL Baso # (Auto) 0.05 (0-0.2) K/uL Immature Gran # (Auto) 0.01 (0.01-0.20) K/uL Sodium 136 (136-145) mmol/L Potassium TNP Chloride 102 (98-107) mmol/L Carbon Dioxide 21 (21-32) mmol/L Anion Gap 13 H (3-11) BUN 53 H (6-23) mg/dl Creatinine 2.00 H (0.6-1.2) mg/dl Est Cr Clr Drug Dosing 16.7 ml/min Est GFR ( Amer) 27.0 ml/min Est GFR (Non-Af Amer) 23.3 ml/min BUN/Creatinine Ratio 26.5 H (10-20) Glucose 121 H (70-99(Fasting)) mg/dl Calcium 9.5 (8.6-10.3) mg/dl Magnesium 2.5 H (1.7-2.4) mg/dl Total Bilirubin 1.1 H (0.2-1.0) mg/dl AST TNP ALT 88 H (7-52) U/L Alkaline Phosphatase 78 (34-104) U/L Troponin I High Sens 50.5 H* (0-14) pg/ml B-Natriuretic Peptide 3035 H (0-100) pg/ml Total Protein 6.7 (6.0-8.3) gm/dl Albumin 4.2 (3.4-5.0) gm/dl Globulin 2.5 (2.5-4.0) gm/dl Albumin/Globulin Ratio 1.7 (0.9-2) Lipase 13 (11-82) U/L TSH (0.300-4.500) uIu/ml Free T4 (0.61-1.60) ng/dl Urine Color Urine Appearance (Clear) Urine pH (4.5-7.5) Ur Specific [place] (1.000-1.030) Urine Protein (Negative) Urine Glucose (UA) (Negative) Urine Ketones (Negative) Urine Blood (Negative) Urine Nitrite (Negative) Urine Bilirubin (Negative) Urine Urobilinogen (Negative) Ur Leukocyte Esterase (Negative) Urine WBC (Auto) (0-5) /hpf Urine RBC (Auto) (0-4) /hpf U Hyaline Cast (Auto) (0-5) /lpf U Epithel Cells (Auto) (0-5) /lpf Urine Bacteria (Auto) (Negative) Urine Yeast Adenovirus (PCR) (NotDetected) B. pertussis DNA (PCR) (NotDetected) B.parapertussis DNA PCR (NotDetected) Lyme Disease IgG Ab (Negative) Lyme Disease IgM Ab (Negative) C. pneumoniae DNA (PCR) (NotDetected) Coronavirus OC43 (PCR) (NotDetected) Coronavirus HKU1 (PCR) (NotDetected) Coronavirus 229E (PCR) (NotDetected) SARS-CoV-2 (PCR) (NotDetected) Coronavirus NL63 (PCR) (NotDetected) Human Metapneumovir PCR (NotDetected) Influenza Type A (PCR) (NotDetected) Influenza Type B (PCR) (NotDetected) M. pneumoniae (PCR) (NotDetected) Parainfluenza 1 (PCR) (NotDetected) Parainfluenza 2 (PCR) (NotDetected) Parainfluenza 3 (PCR) (NotDetected) Parainfluenza 4 (PCR) (NotDetected) RSV (PCR) (NotDetected) Entero/Rhino (PCR) (NotDetected) 09/20/22 09/20/22 09/20/22 Range/Units 00:10 00:10 00:13 WBC (4.8-10.8) K/ul RBC (4.20-5.40) M/uL Hgb (12.0-16.0) g/dl Hct (37.0-47.0) % MCV (80.0-100.0) fL MCH (25.0-34.0) pg MCHC (32.0-36.0) g/dL RDW Std Deviation (36.4-46.3) fL RDW Coeff of Heena (11.5-14.5) % Plt Count (130-400) K/uL MPV (9.4-12.4) fL Immature Gran % (Auto) % Neut % (Auto) % Lymph % (Auto) % [place] % (Auto) % Eos % (Auto) % Baso % (Auto) % Neut # (Auto) (1.40-6.50) K/uL Lymph # (Auto) (1.2-3.4) K/uL [place] # (Auto) (0.11-0.59) K/uL Eos # (Auto) (0-0.50) K/uL Baso # (Auto) (0-0.2) K/uL Immature Gran # (Auto) (0.01-0.20) K/uL Sodium (136-145) mmol/L Potassium Chloride (98-107) mmol/L Carbon Dioxide (21-32) mmol/L Anion Gap (3-11) BUN (6-23) mg/dl Creatinine (0.6-1.2) mg/dl Est Cr Clr Drug Dosing ml/min Est GFR ( Amer) ml/min Est GFR (Non-Af Amer) ml/min BUN/Creatinine Ratio (10-20) Glucose (70-99(Fasting)) mg/dl Calcium (8.6-10.3) mg/dl Magnesium (1.7-2.4) mg/dl Total Bilirubin (0.2-1.0) mg/dl AST ALT (7-52) U/L Alkaline Phosphatase (34-104) U/L Troponin I High Sens (0-14) pg/ml B-Natriuretic Peptide (0-100) pg/ml Total Protein (6.0-8.3) gm/dl Albumin (3.4-5.0) gm/dl Globulin (2.5-4.0) gm/dl Albumin/Globulin Ratio (0.9-2) Lipase (11-82) U/L TSH 5.466 H (0.300-4.500) uIu/ml Free T4 2.48 H (0.61-1.60) ng/dl Urine Color Urine Appearance (Clear) Urine pH (4.5-7.5) Ur Specific [place] (1.000-1.030) Urine Protein (Negative) Urine Glucose (UA) (Negative) Urine Ketones (Negative) Urine Blood (Negative) Urine Nitrite (Negative) Urine Bilirubin (Negative) Urine Urobilinogen (Negative) Ur Leukocyte Esterase (Negative) Urine WBC (Auto) (0-5) /hpf Urine RBC (Auto) (0-4) /hpf U Hyaline Cast (Auto) (0-5) /lpf U Epithel Cells (Auto) (0-5) /lpf Urine Bacteria (Auto) (Negative) Urine Yeast Adenovirus (PCR) Not Detected (NotDetected) B. pertussis DNA (PCR) Not Detected (NotDetected) B.parapertussis DNA PCR Not Detected (NotDetected) Lyme Disease IgG Ab Negative (Negative) Lyme Disease IgM Ab Negative (Negative) C. pneumoniae DNA (PCR) Not Detected (NotDetected) Coronavirus OC43 (PCR) Not Detected (NotDetected) Coronavirus HKU1 (PCR) Not Detected (NotDetected) Coronavirus 229E (PCR) Not Detected (NotDetected) SARS-CoV-2 (PCR) Not Detected (NotDetected) Coronavirus NL63 (PCR) Not Detected (NotDetected) Human Metapneumovir PCR Not Detected (NotDetected) Influenza Type A (PCR) Not Detected (NotDetected) Influenza Type B (PCR) Not Detected (NotDetected) M. pneumoniae (PCR) Not Detected (NotDetected) Parainfluenza 1 (PCR) Not Detected (NotDetected) Parainfluenza 2 (PCR) Not Detected (NotDetected) Parainfluenza 3 (PCR) Not Detected (NotDetected) Parainfluenza 4 (PCR) Not Detected (NotDetected) RSV (PCR) Not Detected (NotDetected) Entero/Rhino (PCR) Not Detected (NotDetected) 09/20/22 09/20/22 Range/Units 00:35 01:51 WBC (4.8-10.8) K/ul RBC (4.20-5.40) M/uL Hgb (12.0-16.0) g/dl Hct (37.0-47.0) % MCV (80.0-100.0) fL MCH (25.0-34.0) pg MCHC (32.0-36.0) g/dL RDW Std Deviation (36.4-46.3) fL RDW Coeff of Heena (11.5-14.5) % Plt Count (130-400) K/uL MPV (9.4-12.4) fL Immature Gran % (Auto) % Neut % (Auto) % Lymph % (Auto) % [place] % (Auto) % Eos % (Auto) % Baso % (Auto) % Neut # (Auto) (1.40-6.50) K/uL Lymph # (Auto) (1.2-3.4) K/uL [place] # (Auto) (0.11-0.59) K/uL Eos # (Auto) (0-0.50) K/uL Baso # (Auto) (0-0.2) K/uL Immature Gran # (Auto) (0.01-0.20) K/uL Sodium (136-145) mmol/L Potassium 4.4 Chloride (98-107) mmol/L Carbon Dioxide (21-32) mmol/L Anion Gap (3-11) BUN (6-23) mg/dl Creatinine (0.6-1.2) mg/dl Est Cr Clr Drug Dosing ml/min Est GFR ( Amer) ml/min Est GFR (Non-Af Amer) ml/min BUN/Creatinine Ratio (10-20) Glucose (70-99(Fasting)) mg/dl Calcium (8.6-10.3) mg/dl Magnesium (1.7-2.4) mg/dl Total Bilirubin (0.2-1.0) mg/dl AST 86 H ALT (7-52) U/L Alkaline Phosphatase (34-104) U/L Troponin I High Sens (0-14) pg/ml B-Natriuretic Peptide (0-100) pg/ml Total Protein (6.0-8.3) gm/dl Albumin (3.4-5.0) gm/dl Globulin (2.5-4.0) gm/dl Albumin/Globulin Ratio (0.9-2) Lipase (11-82) U/L TSH (0.300-4.500) uIu/ml Free T4 (0.61-1.60) ng/dl Urine Color Dark Yellow Urine Appearance Turbid A (Clear) Urine pH 5.5 (4.5-7.5) Ur Specific [place] 1.020 (1.000-1.030) Urine Protein 1+ H (Negative) Urine Glucose (UA) Negative (Negative) Urine Ketones Trace H (Negative) Urine Blood 2+ H (Negative) Urine Nitrite Negative (Negative) Urine Bilirubin Negative (Negative) Urine Urobilinogen Negative (Negative) Ur Leukocyte Esterase 3+ H (Negative) Urine WBC (Auto) >30 H (0-5) /hpf Urine RBC (Auto) 10-30 H (0-4) /hpf U Hyaline Cast (Auto) 1-5 (0-5) /lpf U Epithel Cells (Auto) >30 H (0-5) /lpf Urine Bacteria (Auto) Negative (Negative) Urine Yeast Not Reportable Adenovirus (PCR) (NotDetected) B. pertussis DNA (PCR) (NotDetected) B.parapertussis DNA PCR (NotDetected) Lyme Disease IgG Ab (Negative) Lyme Disease IgM Ab (Negative) C. pneumoniae DNA (PCR) (NotDetected) Coronavirus OC43 (PCR) (NotDetected) Coronavirus HKU1 (PCR) (NotDetected) Coronavirus 229E (PCR) (NotDetected) SARS-CoV-2 (PCR) (NotDetected) Coronavirus NL63 (PCR) (NotDetected) Human Metapneumovir PCR (NotDetected) Influenza Type A (PCR) (NotDetected) Influenza Type B (PCR) (NotDetected) M. pneumoniae (PCR) (NotDetected) Parainfluenza 1 (PCR) (NotDetected) Parainfluenza 2 (PCR) (NotDetected) Parainfluenza 3 (PCR) (NotDetected) Parainfluenza 4 (PCR) (NotDetected) RSV (PCR) (NotDetected) Entero/Rhino (PCR) (NotDetected) Administered Medications Sodium Chloride (Nss) 500 mls @ 80 mls/hr IV .[id number] [facility] Stop: 10/20/22 00:00 Last Admin: 09/20/22 00:30 Dose: 80 mls/hr Documented By: Discontinued Medications Ceftriaxone Sodium 1,000 mg/ (Dextrose) 100 mls @ 200 mls/hr IV NOW STA Stop: 09/20/22 02:05 Last Infusion: 09/20/22 02:39 Dose: 0 mls/hr Documented By: Admin: 09/20/22 02:01 Dose: 200 mls/hr Documented By: Discharge Plan Visit Data Chief Complaint: Shortness of Breath/Dyspnea Stated Complaint: SOB,NAUSEA,DOESN'T WANT TO EAR ED Provider: Megha Michelle Discharge Problem: Weakness, Diarrhea, Dyspnea, SAM (acute kidney injury) Patient Disposition: Admitted As Inpatient Forms Stand Alone Forms: My [facility] Prescriptions Prescriptions: No Action Entresto 24-26 mg Tablet 0.5 tab PO BID Qty: 15 0RF levothyroxine 25 mcg tablet 25 mcg PO DAILYBB furosemide 20 mg tablet See Rx Instructions .ROUTE .COMPLEX Rx Instructions: take 1 tablet orally in the morning and take 1 tablet in afternoon. may take a third tablet in the evening if needed. amiodarone 200 mg tablet 100 mg PO Q OTHER DAY Rx Instructions: 1/2 tablet dose pantoprazole 20 mg tablet,delayed release (DR/EC) 20 mg PO AMHS aspirin 81 mg Tablet,Delayed Release (Dr/Ec) 81 mg PO QAM gabapentin 300 mg capsule 300 mg PO QID loteprednol etabonate [Lotemax] 0.5 % drops,gel 1 drp OPB BID Referrals Referrals: Noel Perry DO [Primary Care Provider] -
[2022-09-20 00:44] LABS: Basophils # (auto) 0.05 K/uL (0-0.2); Basophils % (auto) 0.8 %; Eosinophils # (auto) 0.08 K/uL (0-0.50); Eosinophils % (auto) 1.3 %; Hematocrit (blood only) 39.7 % (37.0-47.0); Hemoglobin 13.2 g/dl (12.0-16.0); Immature Granulocytes # (auto) 0.01 K/uL (0.01-0.20); Immature Granulocytes % (auto) 0.2 %; Lymphocytes # (auto) 1.11 K/uL (1.2-3.4); Lymphocytes % (auto) 18.7 %; Mean Corpuscular Hemoglobin 32.4 pg (25.0-34.0); Mean Corpuscular Hgb Conc 33.2 g/dL (32.0-36.0); Mean Corpuscular Volume 97.3 fL (80.0-100.0); Mean Platelet Volume 11.2 fL (9.4-12.4); Monocytes # (auto) 0.59 K/uL (0.11-0.59); Monocytes % (auto) 9.9 %; Neutrophils # (auto) 4.09 K/uL (1.40-6.50); Neutrophils % (auto) 69.1 %; Platelet Count 152 K/uL (130-400); RDW Coefficient of Variation 14.7 % (11.5-14.5); RDW Standard Deviation 50.1 fL (36.4-46.3); Red Blood Count 4.08 M/uL (4.20-5.40); White Blood Count 5.93 K/ul (4.8-10.8)
[2022-09-20 00:45] LABS: Appearance Urine Turbid (Clear); Bacteria Urine Automated Negative (Negative); Bilirubin Urine Negative (Negative); Blood Urine 2+ (Negative); Color Urine Dark Yellow; Epithelial Cell Urine Auto >30 /lpf (0-5); Glucose Urine UA Negative (Negative); Ketones Urine Trace (Negative); Leukocyte Esterase Urine 3+ (Negative); Nitrite Urine Negative (Negative); Protein Urine 1+ (Negative); Urobilinogen Urine Negative (Negative); WBC Urine Automated >30 /hpf (0-5); pH Urine 5.5 (4.5-7.5)
[2022-09-20 01:06] LABS: Thyroid Stimulating Hormone 5.466 uIu/ml (0.300-4.500)
[2022-09-20 01:08] LABS: Alanine Aminotransferase 88 U/L (7-52); Albumin Globulin Ratio 1.7 (0.9-2); Albumin Level 4.2 gm/dl (3.4-5.0); Alkaline Phosphatase 78 U/L (34-104); Anion Gap 13 (3-11); BUN Creatinine Ratio 26.5 (10-20); Bilirubin,Total 1.1 mg/dl (0.2-1.0); Blood Urea Nitrogen 53 mg/dl (6-23); Calcium 9.5 mg/dl (8.6-10.3); Carbon Dioxide 21 mmol/L (21-32); Chloride 102 mmol/L (98-107); Creatinine Clr Calc Pharmacy 16.7 ml/min; Est GFR (Non-African American) 23.3 ml/min; Globulin 2.5 gm/dl (2.5-4.0); Glucose 121 mg/dl (70-99(Fasting)); Lipase 13 U/L (11-82); Magnesium 2.5 mg/dl (1.7-2.4); Sodium 136 mmol/L (136-145); Total Protein 6.7 gm/dl (6.0-8.3); Troponin I High Sensitivity 50.5 pg/ml (0-14)
[2022-09-20 01:11] LABS: Lyme Ab IgG w/WB Rflx Negative (Negative); Lyme Ab IgM w/WB Rflx Negative (Negative)
[2022-09-20 01:18] LABS: Adenovirus PCR Not Detected (NotDetected); Bordetella parapertussis PCR Not Detected (NotDetected); Bordetella pertussis PCR Not Detected (NotDetected); Chlamydia pneumoniae PCR Not Detected (NotDetected); Coronavirus 229E PCR Not Detected (NotDetected); Coronavirus CoV-2 (COVID19)PCR Not Detected (NotDetected); Coronavirus HKU1 PCR Not Detected (NotDetected); Coronavirus NL63 PCR Not Detected (NotDetected); Coronavirus OC43PCR Not Detected (NotDetected); Human Metapneumovirus PCR Not Detected (NotDetected); Influenza A PCR Not Detected (NotDetected); Influenza B PCR Not Detected (NotDetected); Mycoplasma pneumoniae PCR Not Detected (NotDetected); Parainfluenza Virus 1 PCR Not Detected (NotDetected); Parainfluenza Virus 2 PCR Not Detected (NotDetected); Parainfluenza Virus 3 PCR Not Detected (NotDetected); Parainfluenza Virus 4 PCR Not Detected (NotDetected); Respiratory Syncytial VirusPCR Not Detected (NotDetected); Rhinovirus/Enterovirus PCR Not Detected (NotDetected)
[2022-09-20] MEDS ORDERED: cefTRIAXone SODIUM 1,000 MG in DEXTROSE 5% AD-VAN 50 ML IV STA (01:34)
[2022-09-20] MEDS ORDERED: cefTRIAXone SODIUM 1,000 MG in DEXTROSE 5% 100 ML IV STA (01:36)
[2022-09-20 01:42] LABS: T4 Free Thyroxine 2.48 ng/dl (0.61-1.60)
[2022-09-20 02:27] LABS: Potassium 4.4 mmol/L (3.5-5.1)
[2022-09-20] MEDS ORDERED: ONDANSETRON INJ 2 MG/ML 2 ML VIAL IV PRN (04:49)
[2022-09-20] MEDS ORDERED: NITROGLYCERIN SL 0.4 MG/TAB TAB SL PRN (04:49)
--- NOTE | 2022-09-20 04:59 | History & Physical Report ---
Date of Service September 20, 2022 Assessment & Plan (1) Diarrhea: Plan: 77-year-old female with past med significant for hyperlipidemia, COPD chronic systolic CHF EF 15% 2018 improved to 45% in 2011 and in 2019 but again worsened to 30 to 34% with PVCs in June 2020, s/p biventricular pacemaker, left bundle branch block history of bradycardia, history of A-fib, irritable bowel syndrome, chronic kidney disease stage III, generalized osteoarthritis, history of tobacco abuse presents with diarrhea for last 2 3 days, nausea and also feeling short of breath. Diarrhea Stool studies sent by ER we will follow the results We will place on clear liquid diet Gentle fluids with D5 normal/at rate of 50 mill per hour SAM Presented with creatinine of 2 Baseline creatinine around 1 Holding Lasix and Entresto Getting gentle fluids We will follow the labs Possible UTI Mostly contamination We will follow the cultures Empiric Rocephin for now Chronic systolic CHF EF was 15% in 2018 improved to 45% in 2011 and 2019 but worsened again to 30 to 34% with PVCs in June 2020 S/p biventricular pacemaker Holding Lasix and Entresto for SAM Getting gentle fluids We will monitor for volume overload We will restart diuretics as soon as possible Left bundle-branch block Frequent PVCs On amiodarone Will monitor Hypothyroidism Holding Synthyroid as T4 is somewhat high We will repeat thyroid profile DVT prophylaxis heparin subcu Disposition med/telemetry Full code (2) SAM (acute kidney injury): Admission and Anticipated Discharge Date Admission Date: September 20, 2022 History of Present Illness Chief Complaint: Diarrhea, SAM and shortness of breath Primary Care Provider: Noel Perry DO 77-year-old female with past med significant for hyperlipidemia, COPD chronic systolic CHF EF 15% 2018 improved to 45% in 2011 and in 2019 but again worsened to 30 to 34% with PVCs in June 2020, s/p biventricular pacemaker, left bundle branch block history of bradycardia, history of A-fib, irritable bowel syndrome, chronic kidney disease stage III, generalized osteoarthritis, history of tobacco abuse presents with diarrhea for last 2 3 days, nausea and also feeling short of breath. Because nausea and diarrhea she did not not eating much. Currently diarrhea seem to improved. No abdominal pain. Currently no chest pain. Currently on 2 L oxygen saturating okay. Denies any headache. No earache and some runny nose and sore throat. She tested for COVID and at home and was negative as per patient. Afebrile. Micturating okay. Currently resting comfortably and hemodynamically stable Past medical history as mentioned above Past surgical history colonoscopy, EGD with endoscopic ultrasound, lumbosacral spine injection, injection eye drug Social history former smoker quit in 2001 smoked half pack a day for 30 years, no alcohol use, no drug use Family history mother had heart disorder, macular degeneration, of aplastic anemia at age 82. Father had diabetes Allergies Allergy/AdvReac Type Severity Reaction Status Date / Time bee venom protein (honey bee) Allergy Severe ANAPHYLAXIS Verified 09/20/22 01:06 nickel Allergy Mild Redness of Verified 09/20/22 01:06 Skin Iodinated Contrast Media Allergy Unknown SOB,CRACKLI Verified 09/20/22 01:06 NG,WHEEZING Sulfa (Sulfonamide Allergy Unknown HIVES Verified 09/20/22 01:06 Antibiotics) Home Medications Medication Instructions Recorded Confirmed Type aspirin 81 mg tablet,delayed 81 mg PO QAM 07/06/20 09/20/22 History release gabapentin 300 mg capsule 300 mg PO QID 07/06/20 09/20/22 History loteprednol etabonate 0.5 % eye 1 drp OPB BID 07/06/20 09/20/22 History gel drops (Lotemax) sacubitril 24 mg-valsartan 26 mg 0.5 tab PO BID #15 tabs 02/11/21 09/20/22 Rx tablet (Entresto) amiodarone 200 mg tablet 100 mg PO Q OTHER DAY 09/20/22 09/20/22 History furosemide 20 mg tablet See Rx Instructions .Route .COMPLEX 09/20/22 09/20/22 History levothyroxine 25 mcg tablet 25 mcg PO DAILYBB 09/20/22 09/20/22 History pantoprazole 20 mg tablet,delayed 20 mg PO AMHS 09/20/22 09/20/22 History release Past Med/Surg History Social History Smoking Status: Never smoker Hx Alcohol Use: No Hx Substance Use: No Preferred Language: Croatian Communication Ability: Effective Fund Controller Required: No Beliefs That Will Affect Care: Sabianist Current Living Situation: Alone Current Living Situation Comment: 2 story home How many Children do You have: 0 Feels Safe at Home: Yes Assistive Devices: None Review of Systems Review of Systems: All systems reviewed & are unremarkable except as noted in Subjective Physical Exam Physical Exam: General- Not in distress Head- atraumatic Eyes- PERRL ENT- oropharynx clear Neck- supple, no JVD Lungs- clear to auscultation and percussion, mild bibasilar crackles Heart- regular rate rhythm; no murmur, no gallop, Abdomen- normal bowel sounds, soft, nontender, no distension Extremities- no pretibial edema, no erythema seen Neuro- alert, oriented x 3; PERRL no facial palsy; no dysarthria; obeys commands, moves extremities Skin- warm & dry Results & Data Results & Data Vital Signs (Past 12 Hours) Vital Signs Temp Pulse Resp BP Pulse Ox O2 Del Method O2 Flow Rate 09/20/22 04:27 93 H 09/20/22 03:30 89 17 97 Nasal Cannula 2 09/20/22 03:30 109/70 09/20/22 03:00 93 H 18 94 Nasal Cannula 2 09/20/22 03:00 113/76 09/20/22 02:30 92 H 16 111/66 98 Nasal Cannula 2 09/20/22 00:37 94 H 09/20/22 00:22 Room Air 09/20/22 00:22 Room Air 09/19/22 23:44 36.5 C 83 17 111/65 96 Room Air Diagnostic Findings Laboratory Results WBC 5.93 K/ul (4.8-10.8) 09/20/22 00:10 RBC 4.08 M/uL (4.20-5.40) L 09/20/22 00:10 Hgb 13.2 g/dl (12.0-16.0) 09/20/22 00:10 Hct 39.7 % (37.0-47.0) 09/20/22 00:10 MCV 97.3 fL (80.0-100.0) 09/20/22 00:10 MCH 32.4 pg (25.0-34.0) 09/20/22 00:10 MCHC 33.2 g/dL (32.0-36.0) 09/20/22 00:10 RDW Std Deviation 50.1 fL (36.4-46.3) H 09/20/22 00:10 RDW Coeff of Heena 14.7 % (11.5-14.5) H 09/20/22 00:10 Plt Count 152 K/uL (130-400) 09/20/22 00:10 MPV 11.2 fL (9.4-12.4) 09/20/22 00:10 Immature Gran % (Auto) 0.2 % 09/20/22 00:10 Neut % (Auto) 69.1 % 09/20/22 00:10 Lymph % (Auto) 18.7 % 09/20/22 00:10 [place] % (Auto) 9.9 % 09/20/22 00:10 Eos % (Auto) 1.3 % 09/20/22 00:10 Baso % (Auto) 0.8 % 09/20/22 00:10 Neut # (Auto) 4.09 K/uL (1.40-6.50) 09/20/22 00:10 Lymph # (Auto) 1.11 K/uL (1.2-3.4) L 09/20/22 00:10 [place] # (Auto) 0.59 K/uL (0.11-0.59) 09/20/22 00:10 Eos # (Auto) 0.08 K/uL (0-0.50) 09/20/22 00:10 Baso # (Auto) 0.05 K/uL (0-0.2) 09/20/22 00:10 Immature Gran # (Auto) 0.01 K/uL (0.01-0.20) 09/20/22 00:10 Sodium 136 mmol/L (136-145) 09/20/22 00:10 Potassium 4.4 mmol/L (3.5-5.1) 09/20/22 01:51 Chloride 102 mmol/L (98-107) 09/20/22 00:10 Carbon Dioxide 21 mmol/L (21-32) 09/20/22 00:10 Anion Gap 13 (3-11) H 09/20/22 00:10 BUN 53 mg/dl (6-23) H 09/20/22 00:10 Creatinine 2.00 mg/dl (0.6-1.2) H 09/20/22 00:10 Est Cr Clr Drug Dosing 16.7 ml/min 09/20/22 00:10 Est GFR ( Amer) 27.0 ml/min 09/20/22 00:10 Est GFR (Non-Af Amer) 23.3 ml/min 09/20/22 00:10 BUN/Creatinine Ratio 26.5 (10-20) H 09/20/22 00:10 Glucose 121 mg/dl (70-99(Fasting)) H 09/20/22 00:10 Calcium 9.5 mg/dl (8.6-10.3) 09/20/22 00:10 Magnesium 2.5 mg/dl (1.7-2.4) H 09/20/22 00:10 Total Bilirubin 1.1 mg/dl (0.2-1.0) H 09/20/22 00:10 AST 86 U/L (13-39) H 09/20/22 01:51 ALT 88 U/L (7-52) H 09/20/22 00:10 Alkaline Phosphatase 78 U/L (34-104) 09/20/22 00:10 Troponin I High Sens 50.5 pg/ml (0-14) H* 09/20/22 00:10 B-Natriuretic Peptide 3035 pg/ml (0-100) H 09/20/22 00:10 Total Protein 6.7 gm/dl (6.0-8.3) 09/20/22 00:10 Albumin 4.2 gm/dl (3.4-5.0) 09/20/22 00:10 Globulin 2.5 gm/dl (2.5-4.0) 09/20/22 00:10 Albumin/Globulin Ratio 1.7 (0.9-2) 09/20/22 00:10 Lipase 13 U/L (11-82) 09/20/22 00:10 TSH 5.466 uIu/ml (0.300-4.500) H 09/20/22 00:10 Free T4 2.48 ng/dl (0.61-1.60) H 09/20/22 00:10 Urine Color Dark Yellow 09/20/22 00:35 Urine Appearance Turbid (Clear) A 09/20/22 00:35 Urine pH 5.5 (4.5-7.5) 09/20/22 00:35 Ur Specific [place] 1.020 (1.000-1.030) 09/20/22 00:35 Urine Protein 1+ (Negative) H 09/20/22 00:35 Urine Glucose (UA) Negative (Negative) 09/20/22 00:35 Urine Ketones Trace (Negative) H 09/20/22 00:35 Urine Blood 2+ (Negative) H 09/20/22 00:35 Urine Nitrite Negative (Negative) 09/20/22 00:35 Urine Bilirubin Negative (Negative) 09/20/22 00:35 Urine Urobilinogen Negative (Negative) 09/20/22 00:35 Ur Leukocyte Esterase 3+ (Negative) H 09/20/22 00:35 Urine WBC (Auto) >30 /hpf (0-5) H 09/20/22 00:35 Urine RBC (Auto) 10-30 /hpf (0-4) H 09/20/22 00:35 U Hyaline Cast (Auto) 1-5 /lpf (0-5) 09/20/22 00:35 U Epithel Cells (Auto) >30 /lpf (0-5) H 09/20/22 00:35 Urine Bacteria (Auto) Negative (Negative) 09/20/22 00:35 Urine Yeast Not Reportable 09/20/22 00:35 Adenovirus (PCR) Not Detected (NotDetected) 09/20/22 00:13 B. pertussis DNA (PCR) Not Detected (NotDetected) 09/20/22 00:13 B.parapertussis DNA PCR Not Detected (NotDetected) 09/20/22 00:13 Lyme Disease IgG Ab Negative (Negative) 09/20/22 00:10 Lyme Disease IgM Ab Negative (Negative) 09/20/22 00:10 C. pneumoniae DNA (PCR) Not Detected (NotDetected) 09/20/22 00:13 Coronavirus OC43 (PCR) Not Detected (NotDetected) 09/20/22 00:13 Coronavirus HKU1 (PCR) Not Detected (NotDetected) 09/20/22 00:13 Coronavirus 229E (PCR) Not Detected (NotDetected) 09/20/22 00:13 SARS-CoV-2 (PCR) Not Detected (NotDetected) 09/20/22 00:13 Coronavirus NL63 (PCR) Not Detected (NotDetected) 09/20/22 00:13 Human Metapneumovir PCR Not Detected (NotDetected) 09/20/22 00:13 Influenza Type A (PCR) Not Detected (NotDetected) 09/20/22 00:13 Influenza Type B (PCR) Not Detected (NotDetected) 09/20/22 00:13 M. pneumoniae (PCR) Not Detected (NotDetected) 09/20/22 00:13 Parainfluenza 1 (PCR) Not Detected (NotDetected) 09/20/22 00:13 Parainfluenza 2 (PCR) Not Detected (NotDetected) 09/20/22 00:13 Parainfluenza 3 (PCR) Not Detected (NotDetected) 09/20/22 00:13 Parainfluenza 4 (PCR) Not Detected (NotDetected) 09/20/22 00:13 RSV (PCR) Not Detected (NotDetected) 09/20/22 00:13 Entero/Rhino (PCR) Not Detected (NotDetected) 09/20/22 00:13 ECG Additional Comments: ECG atrial sensed ventricular paced rhythm rate of 91 Code Status & VTE Plan VTE Prophylaxis Plan VTE Prophylaxis will be ordered: Yes
[2022-09-20] MEDS: D5W AND NSS 1,000 ML IV SCH ×2 (06:31→17:13)
[2022-09-20 07:20] LABS: Basophils # (auto) 0.04 K/uL (0-0.2); Basophils % (auto) 0.7 %; Eosinophils # (auto) 0.06 K/uL (0-0.50); Eosinophils % (auto) 1.1 %; Hematocrit (blood only) 36.1 % (37.0-47.0); Hemoglobin 12.4 g/dl (12.0-16.0); Immature Granulocytes # (auto) 0.01 K/uL (0.01-0.20); Immature Granulocytes % (auto) 0.2 %; Lymphocytes # (auto) 0.96 K/uL (1.2-3.4); Lymphocytes % (auto) 17.6 %; Mean Corpuscular Hemoglobin 32.9 pg (25.0-34.0); Mean Corpuscular Hgb Conc 34.3 g/dL (32.0-36.0); Mean Corpuscular Volume 95.8 fL (80.0-100.0); Mean Platelet Volume 10.9 fL (9.4-12.4); Monocytes # (auto) 0.55 K/uL (0.11-0.59); Monocytes % (auto) 10.1 %; Neutrophils # (auto) 3.84 K/uL (1.40-6.50); Neutrophils % (auto) 70.3 %; Nucleated RBC # (auto) 0.02 K/uL (0-0.12); Nucleated RBC % (auto) 0.4 %; Platelet Count 147 K/uL (130-400); RDW Coefficient of Variation 14.9 % (11.5-14.5); RDW Standard Deviation 49.6 fL (36.4-46.3); Red Blood Count 3.77 M/uL (4.20-5.40); White Blood Count 5.46 K/ul (4.8-10.8)
--- NOTE | 2022-09-20 07:20 | XRay Report ---
SINGLE VIEW CHEST CLINICAL HISTORY: Dyspnea FINDINGS: An AP, portable, upright chest radiograph is compared to study dated 02/08/2021. A 3-lead c ardiac pacemaker is unchanged in position and partially obscures the left mid chest. The heart is enl arged noting atherosclerotic calcification of the thoracic aorta. Scarring/atelectasis is seen at the lung bases. There is diffuse coarsening of the interstitium which could represent fluid overload haleigh rusty mild pneumonitis. No lobar consolidation or large pleural effusion is identified. No pneumothorax is seen. The skeletal structures are osteopenic. The bony thorax is grossly intact. IMPRESSION: 1. Cardiomegaly and cardiac pacemaker. 2. Diffuse coarsening of interstitial is nonspecific. This could represent fluid overload/congestive change versus a mild nonspecific pneumonitis. Clinical correlation will be required and radiographic follow-up to resolution is recommended. ACT 112: Negative or not required by law. Electronically signed by: Dominic Disla M.D. 09/20/2022 7:19 AM
[2022-09-20 07:34] LABS: BUN Creatinine Ratio 28.7 (10-20); Calcium 9.1 mg/dl (8.6-10.3); Creatinine Clr Calc Pharmacy 17.7 ml/min; Est GFR (African American) 29.1 ml/min; Est GFR (Non-African American) 25.1 ml/min; Magnesium 2.3 mg/dl (1.7-2.4); Potassium 4.3 mmol/L (3.5-5.1)
[2022-09-20 07:53] LABS: Troponin I High Sensitivity 55.8 pg/ml (0-14)
[2022-09-20] MEDS: LOTEMAX~ORDER AWAITING ACTION SCH ×2 (09:57→16:23)
[2022-09-20] MEDS: ACETAMINOPHEN 325 MG TAB PO PRN ×2 (10:02→20:47)
[2022-09-20] MEDS: GABAPENTIN 300 MG CAP PO SCH ×4 (10:55→20:48)
[2022-09-20] MEDS: PANTOprazole 40 MG TAB PO SCH ×2 (10:55→20:48)
[2022-09-20] MEDS: ASPIRIN 81 MG ECTAB PO SCH (10:55)
[2022-09-20] MEDS: HEPARIN SOD 5,000 UNIT/0.5 ML VIAL SQ SCH ×2 (10:57→20:46)
[2022-09-20] MEDS: ADVANCED PROBIOTIC 1250 MG CAPSULE PO SCH (15:01)
--- NOTE | 2022-09-20 17:22 | Hospitalist Progress Note ---
Date of Service September 20, 2022 Assessment & Plan (1) Diarrhea: Plan: 77-year-old female with past med significant for hyperlipidemia, COPD chronic systolic CHF EF 15% 2018 improved to 45% in 2011 and in 2019 but again worsened to 30 to 34% with PVCs in June 2020, s/p biventricular pacemaker, left bundle branch block history of bradycardia, history of A-fib, irritable bowel syndrome, chronic kidney disease stage III, generalized osteoarthritis, history of tobacco abuse presents with diarrhea for last 2 3 days, nausea and also feeling short of breath. Diarrhea Patient denies any recent antibiotic use, travel, similar complaints with family Stool studies pending Advance diet as tolerated IV fluids as needed SAM Presented with creatinine of 2 Cr 1.8 today Held Lasix and Entresto Patient currently refusing IV fluids given concern for CHF Avoid nephrotoxic agents as able Monitor renal function closely Possible UTI Urine culture pending Currently on Rocephin empirically Chronic systolic CHF EF was 15% in 2019 improved to 45% in 2011 and 2019 but worsened again to 30 to 34% with PVCs in June 2020 S/p biventricular pacemaker Holding Lasix and Entresto due to SAM monitor volume statu s restart diuretics as soon as possible Left bundle-branch block Frequent PVCs On amiodarone monitor Hypothyroidism Abnormal thyroid function test Continue levothyroxine Will need repeat thyroid function test as outpatient DVT Px Heparin SQ Code Status Full code (2) SAM (acute kidney injury): Admission and Anticipated Discharge Date Admission Date: September 20, 2022 Subjective Patient is seen and examined at bedside States diarrhea slowly improving Reports chronic dyspnea on exertion Denies any chest pain, dizziness, nausea, vomiting, abdominal pain Review of Systems Review of Systems: All systems reviewed & are unremarkable except as noted in Subjective Physical Exam Physical Exam: Physical Exam: Vitals signs as noted above General Appearance: Thin, frail, elderly, no apparent distress Head: normocephalic, Atraumatic Eyes: normal inspection, EOMI Neck: supple, Trachea midline Respiratory/Chest: Normal breath sounds, CTA, No accessory muscle use Cardiovascular: S1, S2, +murmur Abdomen/GI:Soft, Non tender, Bowel sounds present Extremities/Musculoskeletal:normal inspection, no edema Neurologic/Psych:AAOX3, grossly no focal neurological deficits Skin: normal color, warm Results & Data Results & Data Vital Signs (Past 12 Hours) Vital Signs Temp Pulse Pulse Resp BP BP BP 09/20/22 15:36 70 09/20/22 14:52 36.4 C L 71 16 95/65 L 09/20/22 11:19 36.3 C L 69 18 96/62 L 09/20/22 11:01 91 H 09/20/22 09:47 09/20/22 09:47 36.5 C 83 18 101/65 09/20/22 08:40 85 09/20/22 08:00 70 17 107/60 09/20/22 07:30 86 19 104/65 09/20/22 07:00 80 14 110/73 09/20/22 06:00 88 18 09/20/22 06:00 108/78 Pulse Ox O2 Del Method O2 Flow Rate 09/20/22 15:36 09/20/22 14:52 96 Nasal Cannula 2 09/20/22 11:19 98 Nasal Cannula 2 09/20/22 11:01 09/20/22 09:47 Room Air 2 09/20/22 09:47 94 Room Air 09/20/22 08:40 09/20/22 08:00 96 Room Air 09/20/22 07:30 98 Room Air 09/20/22 07:00 98 Room Air 09/20/22 06:00 96 Nasal Cannula 2 09/20/22 06:00 Laboratory Results Short CBC 09/20/22 09/20/22 Range/Units 00:10 06:58 WBC 5.93 5.46 (4.8-10.8) K/ul Hgb 13.2 12.4 (12.0-16.0) g/dl Hct 39.7 36.1 L (37.0-47.0) % Plt Count 152 147 (130-400) K/uL BMP 09/20/22 09/20/22 09/20/22 00:10 01:51 06:58 Sodium 136 138 Potassium TNP 4.4 4.3 Chloride 102 105 Carbon Dioxide 21 24 BUN 53 H 54 H Creatinine 2.00 H 1.88 H Glucose 121 H 103 H Calcium 9.5 9.1 Liver Function 09/20/22 09/20/22 Range/Units 00:10 01:51 Total Bilirubin 1.1 H (0.2-1.0) mg/dl AST TNP 86 H ALT 88 H (7-52) U/L Alkaline Phosphatase 78 (34-104) U/L Albumin 4.2 (3.4-5.0) gm/dl Urine 09/20/22 Range/Units 00:35 Urine Color Dark Yellow Urine Appearance Turbid A (Clear) Urine pH 5.5 (4.5-7.5) Ur Specific [place] 1.020 (1.000-1.030) Urine Protein 1+ H (Negative) Urine Glucose (UA) Negative (Negative)
[2022-09-20] MEDS: cefTRIAXone SODIUM 1,000 MG in DEXTROSE 5% AD-VAN 50 ML IV SCH (20:48)
[2022-09-20] MEDS: PHENAZOPYRIDINE HCL 100 MG TAB PO PRN (21:47)
[2022-09-20] MEDS: traMADol HCL 50 MG TABLET PO PRN (21:47)
[2022-09-20] MEDS ORDERED: oxyBUTYnin chloride 5 MG TAB PO STA (23:04)
[2022-09-21] MEDS: LOTEMAX~ORDER AWAITING ACTION SCH ×3 (00:22→16:06)
[2022-09-21] MEDS: D5W AND NSS 1,000 ML IV SCH (06:33)
[2022-09-21 07:29] LABS: Hematocrit (blood only) 39.9 % (37.0-47.0); Hemoglobin 13.3 g/dl (12.0-16.0); Mean Corpuscular Hgb Conc 33.3 g/dL (32.0-36.0); Mean Corpuscular Volume 95.9 fL (80.0-100.0); Mean Platelet Volume 10.9 fL (9.4-12.4); Platelet Count 157 K/uL (130-400); RDW Coefficient of Variation 14.9 % (11.5-14.5); RDW Standard Deviation 50.2 fL (36.4-46.3); Red Blood Count 4.16 M/uL (4.20-5.40); White Blood Count 6.61 K/ul (4.8-10.8)
[2022-09-21 07:44] LABS: Calcium 9.2 mg/dl (8.6-10.3); Creatinine Clr Calc Pharmacy 23.1 ml/min; Est GFR (African American) 35.7 ml/min; Est GFR (Non-African American) 30.8 ml/min; Magnesium 2.2 mg/dl (1.7-2.4); Potassium 3.9 mmol/L (3.5-5.1)
[2022-09-21] MEDS: PHENAZOPYRIDINE HCL 100 MG TAB PO PRN (07:59)
[2022-09-21] MEDS: GABAPENTIN 300 MG CAP PO SCH ×4 (07:59→20:01)
[2022-09-21] MEDS: PANTOprazole 40 MG TAB PO SCH ×2 (08:00→20:01)
[2022-09-21] MEDS: AMIODARONE 200 MG TAB PO SCH (08:00)
[2022-09-21] MEDS: HEPARIN SOD 5,000 UNIT/0.5 ML VIAL SQ SCH ×2 (08:01→19:59)
[2022-09-21] MEDS: ASPIRIN 81 MG ECTAB PO SCH (08:01)
[2022-09-21] MEDS: ADVANCED PROBIOTIC 1250 MG CAPSULE PO SCH (08:01)
--- NOTE | 2022-09-21 10:28 | Electrocardiogram Report ---
Test Reason : Blood Pressure : / mmHG Vent. Rate : 091 BPM Atrial Rate : 091 BPM P-R Int : 170 ms QRS Dur : 130 ms QT Int : 428 ms P-R-T Axes : 055 267 068 degrees QTc Int : 526 ms Atrial-sensed ventricular-paced rhythm Abnormal ECG When compared with ECG of 10-FEB-2021 07:21, Premature ventricular complexes are no longer Present Vent. rate has increased BY 13 BPM Confirmed by Kaden Mai ([id number]) on 09/21/2022 10:28:41 AM Referred By: REFERRED SELF Confirmed By:Kaden Mai
[2022-09-21] MEDS: traMADol HCL 50 MG TABLET PO PRN (11:21)
[2022-09-21] MEDS: PHENAZOPYRIDINE HCL 200 MG TAB PO PRN ×2 (12:46→20:01)
--- NOTE | 2022-09-21 15:20 | Hospitalist Progress Note ---
Date of Service September 21, 2022 Assessment & Plan (1) Diarrhea: Plan: 77-year-old female with past med significant for hyperlipidemia, COPD chronic systolic CHF EF 15% 2018 improved to 45% in 2011 and in 2019 but again worsened to 30 to 34% with PVCs in June 2020, s/p biventricular pacemaker, left bundle branch block history of bradycardia, history of A-fib, irritable bowel syndrome, chronic kidney disease stage III, generalized osteoarthritis, history of tobacco abuse presents with diarrhea for last 2 3 days, nausea and also feeling short of breath. Diarrhea Patient denies any recent antibiotic use, travel, similar complaints with family Stool studies pending IV fluids as needed Diarrhea resolved Unable to obtain stool studies SAM Presented with creatinine of 2 Cr 1.5 today Held Lasix and Entresto Patient currently refusing IV fluids given concern for CHF Avoid nephrotoxic agents as able Monitor renal function Improving Possible UTI Urine culture: Mixed probable skin stuart Empirically on Rocephin Chronic systolic CHF EF was 15% in 2018 improved to 45% in 2011 and 2019 but worsened again to 30 to 34% with PVCs in June 2020 S/p biventricular pacemaker Holding Lasix and Entresto due to SAM monitor volume status Restart diuretics as soon as possible Left bundle-branch block Frequent PVCs On amiodarone monitor Hypothyroidism Abnormal thyroid function test Continue levothyroxine Will need repeat thyroid function test as outpatient DVT Px Heparin SQ Code Status Full code (2) SAM (acute kidney injury): Admission and Anticipated Discharge Date Admission Date: September 20, 2022 Subjective Patient is seen and examined at bedside States having bladder spasms today Diarrhea resolved No other complaints Denies any chest pain, dizziness, nausea, vomiting, abdominal pain Review of Systems Review of Systems: All systems reviewed & are unremarkable except as noted in Subjective Physical Exam Physical Exam: Physical Exam: Vitals signs as noted above General Appearance: Thin, frail, elderly, no apparent distress Head: normocephalic, Atraumatic Eyes: normal inspection, EOMI Neck: supple, Trachea midline Respiratory/Chest: Normal breath sounds, CTA, No accessory muscle use Cardiovascular: S1, S2, +murmur Abdomen/GI:Soft, Non tender, Bowel sounds present Extremities/Musculoskeletal:normal inspection, no edema Neurologic/Psych:AAOX3, grossly no focal neurological deficits Skin: normal color, warm Results & Data Results & Data Vital Signs (Past 12 Hours) Vital Signs Temp Pulse Pulse Resp BP Pulse Ox Pulse Ox 09/21/22 14:48 36.3 C L 79 20 110/69 97 09/21/22 11:31 78 18 101/64 93 09/21/22 09:01 09/21/22 07:26 102 H 09/21/22 07:20 36.4 C L 89 18 110/67 98 09/21/22 04:04 99 O2 Del Method O2 Del Method O2 Flow Rate O2 Flow Rate 09/21/22 14:48 Room Air 09/21/22 11:31 Nasal Cannula 2 09/21/22 09:01 Room Air 09/21/22 07:26 09/21/22 07:20 Room Air 09/21/22 04:04 Nasal Cannula 2 Laboratory Results Short CBC 09/21/22 Range/Units 06:53 WBC 6.61 (4.8-10.8) K/ul Hgb 13.3 (12.0-16.0) g/dl Hct 39.9 (37.0-47.0) % Plt Count 157 (130-400) K/uL BMP 09/21/22 06:53 Sodium 135 L Potassium 3.9 Chloride 100 Carbon Dioxide 24 BUN 54 H Creatinine 1.59 H Glucose 121 H Calcium 9.2
[2022-09-21] MEDS: cefTRIAXone SODIUM 1,000 MG in DEXTROSE 5% AD-VAN 50 ML IV SCH (19:59)
[2022-09-21] MEDS: ACETAMINOPHEN 325 MG TAB PO PRN (20:00)
[2022-09-22] MEDS: LOTEMAX~ORDER AWAITING ACTION SCH ×3 (00:29→15:32)
[2022-09-22] MEDS ORDERED: DOCUSATE SODIUM 100 MG CAP PO PRN (04:47)
[2022-09-22 06:24] LABS: Hematocrit (blood only) 39.4 % (37.0-47.0); Hemoglobin 13.3 g/dl (12.0-16.0); Mean Corpuscular Hemoglobin 32.4 pg (25.0-34.0); Mean Corpuscular Hgb Conc 33.8 g/dL (32.0-36.0); Mean Corpuscular Volume 96.1 fL (80.0-100.0); Mean Platelet Volume 11.4 fL (9.4-12.4); Platelet Count 146 K/uL (130-400); RDW Coefficient of Variation 14.7 % (11.5-14.5); RDW Standard Deviation 50.2 fL (36.4-46.3); White Blood Count 6.75 K/ul (4.8-10.8)
[2022-09-22 06:33] LABS: BUN Creatinine Ratio 36.4 (10-20); Calcium 9.4 mg/dl (8.6-10.3); Creatinine Clr Calc Pharmacy 19.8 ml/min; Est GFR (African American) 31.6 ml/min; Est GFR (Non-African American) 27.2 ml/min; Potassium 4.8 mmol/L (3.5-5.1)
[2022-09-22] MEDS ORDERED: SODIUM CHLORIDE 0.9% 1000ML 1,000 ML IV ONE (07:31)
[2022-09-22] MEDS: PHENAZOPYRIDINE HCL 200 MG TAB PO PRN ×2 (08:25→20:05)
[2022-09-22] MEDS: PANTOprazole 40 MG TAB PO SCH ×2 (08:25→20:05)
[2022-09-22] MEDS: GABAPENTIN 300 MG CAP PO SCH ×4 (08:25→20:06)
[2022-09-22] MEDS: HEPARIN SOD 5,000 UNIT/0.5 ML VIAL SQ SCH ×2 (08:26→20:06)
[2022-09-22] MEDS: ASPIRIN 81 MG ECTAB PO SCH (08:26)
[2022-09-22] MEDS: ADVANCED PROBIOTIC 1250 MG CAPSULE PO SCH (08:27)
[2022-09-22] MEDS ORDERED: ARTIFICIAL TEARS OPB PRN (10:03)
--- NOTE | 2022-09-22 13:52 | XRay Report ---
KUB HISTORY: Acute generalized abdominal pain with constipation constipation COMPARISON: Chest radiograph 09/20/2022 FINDINGS: Nonproductive bowel gas pattern. Cholecystectomy. Moderate fecal retention. No renal calcu li. No ureteral calculi. No pneumoperitoneum or pneumatosis. Lumbar levoscoliosis. No fracture. Cardi omegaly with left basilar opacities. Partially imaged pacer leads. IMPRESSION: 1. Nonobstructive bowel gas pattern. 2. Moderate fecal retention. ACT 112: Negative or not required by law. The above report was generated using voice recognition software. It may contain grammatical, syntax o r spelling errors. Electronically signed by: James Floyd M.D. 09/22/2022 1:50 PM
[2022-09-22] MEDS ORDERED: POLYETHYLENE (MIRALAX) 17 GM PACK PO PRN (15:23)
[2022-09-22] MEDS ORDERED: POLYETHYLENE (MIRALAX) 17 GM PACK PO ONE (15:24)
--- NOTE | 2022-09-22 17:00 | Hospitalist Progress Note ---
Date of Service September 22, 2022 Assessment & Plan (1) Diarrhea: Plan: 77-year-old female with past med significant for hyperlipidemia, COPD chronic systolic CHF EF 15% 2018 improved to 45% in 2011 and in 2019 but again worsened to 30 to 34% with PVCs in June 2020, s/p biventricular pacemaker, left bundle branch block history of bradycardia, history of A-fib, irritable bowel syndrome, chronic kidney disease stage III, generalized osteoarthritis, history of tobacco abuse presents with diarrhea for last 2 3 days, nausea and also feeling short of breath. Diarrhea--Likely overflow diarrhea secondary to fecal retention Fecal retention Patient denies any recent antibiotic use, travel, similar complaints with family --KUB:Nonobstructive bowel gas pattern. Moderate fecal retention. Stool studies pending IV fluids as needed Started on bowel regimen SAM Presented with creatinine of 2.0 Cr 1.7 today Held Lasix and Entresto Avoid nephrotoxic agents as able Monitor renal function Gentle IV fluids Possible UTI Urine culture: Mixed probable skin stuart Empirically on Rocephin-- will complete 3 day course Chronic systolic CHF EF was 15% in 2018 improved to 45% in 2011 and 2019 but worsened again to 30 to 34% with PVCs in June 2020 S/p biventricular pacemaker Holding Lasix and Entresto due to SAM monitor volume status Restart diuretics as soon as possible Left bundle-branch block Frequent PVCs On amiodarone monitor Hypothyroidism Abnormal thyroid function test Continue levothyroxine Will need repeat thyroid function test as outpatient DVT Px Heparin SQ Code Status Full code (2) SAM (acute kidney injury): Admission and Anticipated Discharge Date Admission Date: September 20, 2022 Subjective Patient is seen and examined at bedside Reports having poor sleep overnight Bladder spasms resolved Reports constipation No other complaints Poor appetite Denies any chest pain, dizziness, nausea, vomiting, abdominal pain Review of Systems Review of Systems: All systems reviewed & are unremarkable except as noted in Subjective Physical Exam Physical Exam: Physical Exam: Vitals signs as noted above General Appearance: Thin, frail, elderly, no apparent distress Head: normocephalic, Atraumatic Eyes: normal inspection, EOMI Neck: supple, Trachea midline Respiratory/Chest: Normal breath sounds, CTA, No accessory muscle use Cardiovascular: S1, S2, +murmur Abdomen/GI:Soft, Non tender, Bowel sounds present Extremities/Musculoskeletal:normal inspection, no edema Neurologic/Psych:AAOX3, grossly no focal neurological deficits Skin: normal color, warm Results & Data Results & Data Vital Signs (Past 12 Hours) Vital Signs Temp Pulse Pulse Resp BP Pulse Ox O2 Del Method 09/22/22 15:55 71 09/22/22 15:39 36.2 C L 80 16 95/63 L 91 Room Air 09/22/22 11:26 36.4 C L 99 H 16 105/59 L 93 Room Air 09/22/22 09:28 Room Air 09/22/22 08:20 36.4 C L 104 H 16 112/71 73 L Room Air 09/22/22 07:22 86 Laboratory Results Short CBC 09/22/22 Range/Units 05:36 WBC 6.75 (4.8-10.8) K/ul Hgb 13.3 (12.0-16.0) g/dl Hct 39.4 (37.0-47.0) % Plt Count 146 (130-400) K/uL BMP 09/22/22 05:36 Sodium 132 L Potassium 4.8 D Chloride 99 Carbon Dioxide 23 BUN 64 H Creatinine 1.76 H Glucose 124 H Calcium 9.4
[2022-09-22] MEDS: ACETAMINOPHEN 325 MG TAB PO PRN (20:04)
[2022-09-22] MEDS: cefTRIAXone SODIUM 1,000 MG in DEXTROSE 5% AD-VAN 50 ML IV SCH (20:05)
[2022-09-22] MEDS: DOCUSATE SODIUM 100 MG CAP PO SCH (20:05)
[2022-09-23] MEDS: LOTEMAX~ORDER AWAITING ACTION SCH ×3 (06:55→15:06)
[2022-09-23 08:17] LABS: BUN Creatinine Ratio 34.9 (10-20); Calcium 8.6 mg/dl (8.6-10.3); Creatinine Clr Calc Pharmacy 15.6 ml/min; Est GFR (African American) 22.2 ml/min; Est GFR (Non-African American) 19.2 ml/min; Potassium 4.9 mmol/L (3.5-5.1)
[2022-09-23] MEDS: GABAPENTIN 300 MG CAP PO SCH ×4 (08:48→20:01)
[2022-09-23] MEDS: AMIODARONE 200 MG TAB PO SCH (08:48)
[2022-09-23] MEDS: PANTOprazole 40 MG TAB PO SCH ×2 (08:48→20:01)
[2022-09-23] MEDS: ADVANCED PROBIOTIC 1250 MG CAPSULE PO SCH (08:49)
[2022-09-23] MEDS: PHENAZOPYRIDINE HCL 200 MG TAB PO PRN ×2 (08:49→20:00)
[2022-09-23] MEDS: ASPIRIN 81 MG ECTAB PO SCH (08:50)
[2022-09-23] MEDS: DOCUSATE SODIUM 100 MG CAP PO SCH ×2 (08:50→20:00)
[2022-09-23] MEDS: HEPARIN SOD 5,000 UNIT/0.5 ML VIAL SQ SCH ×2 (08:50→19:59)
[2022-09-23] MEDS ORDERED: SODIUM CHLORIDE 0.9% 1000ML 1,000 ML IV SCH (09:30)
[2022-09-23] MEDS ORDERED: SODIUM CHLORIDE 1 GM TABLET PO SCH (11:00)
--- NOTE | 2022-09-23 11:14 | Nephrology Consultation ---
Date of Consultation September 23, 2022 Assessment & Plan (1) SAM (acute kidney injury): Creatinine has gone up the last 2 days despite getting IV fluid and Lasix and Entresto on hold. Clearly this is not a case of volume depletion as the cause of acute renal failure. This pattern of rise is consistent with ATN. Her urine on admission had a lot of epithelial cells Consistent with ATN. It is also worth noting that her blood pressure is marginal on a good day and she has COPD as well as CHF and at this age both these conditions make them very very susceptible to ATN during periods of transient hypoxia and hypotension. Almost certainly this is what happened and this is not an unusual presentation. I would not give any more fluid Continue to hold Entresto But will have to use Lasix 20 mg IV every 8 hr starting now. (2) Hyponatremia: Hyponatremia triggered by ATN causing fluid retention in conjunction with holding Lasix. We will stop IV fluid. We will also check urine sodium urine creatinine and urine osmolarity but they are of limited value at this stage. Also chest x-ray x1 view for assessment of pulmonary congestion. Use Lasix 20 mg IV every 8 Use urea 15 g twice daily I would not use salt tablet given her history of CHF and I believe she is in some degree of pulmonary congestion at this time Free fluid restriction 1200 mL/day Check labs 3 times daily History of Present Illness Reason for Consultation: Acute kidney injury and hyponatremia Attending Physician: Omar Frazier MD History of Present Illness 77/F with COPD, chronic systolic CHF EF 15% 2018 improved to 45% in 2011 and in 2019 but again worsened to 30 to 34% with PVCs in June 2020, s/p biventricular pacemaker, left bundle branch block history of bradycardia, history of A-fib, irritable bowel syndrome, chronic kidney disease stage III ( fluctuating Creat) presented to the hospital 3 days ago with shortness of breath. She also had some nausea and diarrhea briefly but that is since resolved. Not eating much. Since being admitted creatinine has actually got worse despite IV fluid. Her outpatient Lasix and Entresto was kept on hold and it is still on hold and she was given IV fluid which she is still getting. But despite that sodium has been dropping and is now down to 126 from normal 138 on admission and creatinine has got worse last few days from 1.5 to 2.35. She claims her blood pressure has always been on the low side. She is currently requiring some oxygen which she normally does not. Past surgical history colonoscopy, EGD with endoscopic ultrasound, lumbosacral spine injection, injection eye drug Social history former smoker quit in 2001 smoked half pack a day for 30 years, no alcohol use, no drug use Family history mother had heart disorder, macular degeneration, of aplastic anemia at age 82. Father had diabetes Review of systems----prior to admission she had shortness of breath some cough poor appetite some nausea and diarrhea. At this time she still has some shortness of breath but the nausea and diarrhea has resolved. Otherwise 12 system reviewed and negative Allergies Allergy/AdvReac Type Severity Reaction Status Date / Time bee venom protein (honey bee) Allergy Severe ANAPHYLAXIS Verified 09/20/22 01:06 nickel Allergy Mild Redness of Verified 09/20/22 01:06 Skin Iodinated Contrast Media Allergy Unknown SOB,CRACKLI Verified 09/20/22 01:06 NG,WHEEZING Sulfa (Sulfonamide Allergy Unknown HIVES Verified 09/20/22 01:06 Antibiotics) Home Medications Medication Instructions Recorded Confirmed Type aspirin 81 mg tablet,delayed 81 mg PO QAM 07/06/20 09/20/22 History release gabapentin 300 mg capsule 300 mg PO QID 07/06/20 09/20/22 History loteprednol etabonate 0.5 % eye 1 drp OPB BID 07/06/20 09/20/22 History gel drops (Lotemax) sacubitril 24 mg-valsartan 26 mg 0.5 tab PO BID #15 tabs 02/11/21 09/20/22 Rx tablet (Entresto) amiodarone 200 mg tablet 100 mg PO Q OTHER DAY 09/20/22 09/20/22 History furosemide 20 mg tablet See Rx Instructions .Route .COMPLEX 09/20/22 09/20/22 History levothyroxine 25 mcg tablet 25 mcg PO DAILYBB 09/20/22 09/20/22 History pantoprazole 20 mg tablet,delayed 20 mg PO AMHS 09/20/22 09/20/22 History release Patient History Social History Smoking Status: Former smoker Do You Dip or Chew Tobacco: No; Hx Alcohol Use: No Hx Substance Use: No Preferred Language: Portuguese Communication Ability: Effective Cook Mayonnaise Required: No Beliefs That Will Affect Care: None Current Living Situation: Alone Current Living Situation Comment: lives home alone How many Children do You have: 0 Other Information That Helps Us Care for You: No Feels Safe at Home: Yes Safety Concerns: Feels Safe At This Time Assistive Devices: None Physical Exam Physical Exam: Petite elderly female was not in overt respiratory distress she is on 1 L oxygen. She is able to give me a detailed accurate history of medical problem Neck: Neck is supple no jugular venous distention Respiratory: Bilateral decreased breath sound occasional basilar crackle Cardiovascular: irregular soft systolic murmur heard Gastrointestinal (Abdomen): Soft nontender Skin: No rash Results & Data Vital Signs (Past 12 Hours) Vital Signs Temp Pulse Pulse Resp BP Pulse Ox O2 Del Method 09/23/22 09:12 Nasal Cannula 09/23/22 08:05 36.2 C L 77 16 92/64 L 94 Nasal Cannula 09/23/22 07:04 74 09/23/22 03:14 70 95 Nasal Cannula 09/23/22 03:09 36.3 C L 70 18 92/61 L 93 Nasal Cannula 09/22/22 23:25 93 Nasal Cannula 09/22/22 23:20 36.4 C L 76 18 105/68 91 Room Air O2 Flow Rate 09/23/22 09:12 1 09/23/22 08:05 1 09/23/22 07:04 09/23/22 03:14 1 09/23/22 03:09 2 09/22/22 23:25 1 09/22/22 23:20 Laboratory Results Sodium 138 on admission and now is down to 126. Creatinine was 1.52 days ago but is now up to 2.35
[2022-09-23] MEDS: UREA (UREA-NA) 15 GM PACK PO SCH ×2 (11:17→20:00)
--- NOTE | 2022-09-23 11:35 | XRay Report ---
SINGLE VIEW CHEST CLINICAL HISTORY: Follow-up congestive heart failure. FINDINGS: An AP, portable, upright chest radiograph is compared to study dated 09/20/2022. A 3-lead ca rdiac pacemaker is unchanged in position and partially obscures the left mid chest. The heart is enla rged noting atherosclerotic calcification of the thoracic aorta. There is mild pulmonary vascular con gestion. There is a left pleural effusion with left basilar consolidation. Atelectasis is noted at th e right lung base. No pneumothorax is seen. The skeletal structures are osteopenic. The bony thorax i s grossly intact. IMPRESSION: 1. Cardiomegaly and cardiac pacemaker with mild pulmonary vascular congestion. 2. Small left pleural effusion with left basilar consolidation. Correlate clinically for evidence of a superimposed pneumonia/aspiration pneumonitis. ACT 112: Negative or not required by law. Electronically signed by: Dominic Disla M.D. 09/23/2022 11:33 AM
[2022-09-23] MEDS: FUROSEMIDE INJ 20 MG/2 ML VIAL IV SCH ×2 (11:58→18:12)
--- NOTE | 2022-09-23 13:28 | Cardiology Consultation ---
Date of Consultation September 23, 2022 Assessment & Plan (1) Hyponatremia: (2) Weakness: (3) Diarrhea: (4) Dyspnea: (5) Acute on chronic heart failure: (6) Acute hypoxemic respiratory failure: (7) Acute HFrEF (heart failure with reduced ejection fraction): (8) Frequent unifocal PVCs: (9) Left bundle branch block (LBBB): (10) Non-ischemic cardiomyopathy: (11) Acute HFrEF (heart failure with reduced ejection fraction): Plan Complex 77 year old female admitted on September 20, 2022 with complaints of worsening shortness of breath, weakness, nausea, decreased appetite, and diarrhea. Furosemide and Entresto held, receiving gentle fluid resuscitation with worsening dyspnea, resultant acute decompensated heart failure signs and symptoms in a patient with known severely reduced LV systolic function despite prior biventricular pacemaker implantation and improvement in frequent ventricular ectopics following the addition of amiodarone. Guideline directed medical therapy limited by patient tolerance with chronic hypotension observed. Options of management discussed with patient in detail. Recommendations: Agree with IV furosemide administration and fluid restriction as ordered by Nephrology Continue to hold Entresto, resuming as soon as determined to be appropriate Continue low-dose amiodarone Retry low-dose metoprolol succinate 12.5 mg at bedtime Refer for resting echocardiography Recommend noncontrast CT of the chest to further evaluate the abnormal chest x-ray and the chronic amiodarone use. Supervising Physician Co-Signing Physician Notes Supervising Physician Attestation: I have personally performed a history and physical examination on the patient. I agree with the physician dental assistant's findings and plan as documented with the following additions. Subjective: Patient notes dyspnea, mildly improved. This morning. Most recent pulse oximetry 90% on room air Exam: Cardiovascular: Regular rhythm, no murmurs, no edema Pulmonary: Mildly decreased breath sounds the bases Data: Noncontrast CT of the chest performed today 09/23/2022: 1. Cardiomegaly and cardiac pacemaker. Intralobular septal thickening could represent acute versus chronic congestive change. Clinical correlation will be required. 2. Moderate to severe emphysema. 3. Right larger than left pleural effusions with dependent atelectasis. 4. Small volume upper abdominal ascites. Assessment and Plan: Chronic heart failure with reduced ejection fraction, hyponatremia Continue furosemide 20 mg IV every 8 hours, metoprolol, amiodarone, aspirin. Entresto remains on hold DVT prophylaxis: Subcutaneous heparin Randy Singer, History of Present Illness Reason for Consultation: CHF Requesting Physician: Dr. Omar Frazier Attending Physician: Omar Frazier History of Present Illness Ms. Katy Davis is a 77-year-old female who presented to the [facility] ER on September 20, 2022 with complaints of worsening shortness of breath, weakness, nausea, decreased appetite, and diarrhea. Patient received gentle fluid resuscitation. Furosemide (20 mg 3 times daily) and Entresto (1/2 of a 2426 mg tablet twice per day) have been held since admission. Diarrhea continues, felt to represent overflow diarrhea with moderate fecal retention observed on imaging. Despite the above measures the patient has experienced progressive symptoms, in particularly worsening shortness of breath, intermittent PND, and abdominal bloating. She is now requiring supplemental oxygen. Laboratory work since admission has revealed progressive renal dysfunction along with progressive hyponatremia. Patient evaluated by Nephrology earlier today, advising utilization of furosemide 20 mg IV every 8 hours along with fluid restriction to 1200 mL/day for acute kidney injury, pattern consistent with acute tubular necrosis, and hyponatremia Chest x-ray earlier today revealed cardiomegaly with mild pulmonary vascular congestion, small left pleural effusion with left basilar consolidation. Patient carries a complex history of nonischemic cardiomyopathy initially diagnosed in 2008. Patient initially responded to medical therapies with improvement in LV systolic function though in 2020 was noted to have NYHA class III congestive heart failure with observed decline in left ventricular ejection fraction despite medical therapies. Patient status post Medtronic biventricular pacemaker defibrillator implantation. Medical therapies have been limited by patient intolerance with past intolerance to both metoprolol and carvedilol reported. Patient is willing to consider retrial of metoprolol and ongoing use of amiodarone at 100 mg a day which has been tolerated well. Review of outpatient device interrogations demonstrates improvement in frequent ventricular ectopy though echocardiography continues to show significantly reduced LV systolic function with ejection fraction less than 20%. No chest pain. No palpitations. No lower extremity edema. No dizziness, near syncope, or syncope. No current fevers or chills. No melena, hematochezia, hematuria, or dysuria. Past Medical and Surgical History Nonischemic cardiomyopathy, LVEF 15% in 2008 with transient improvement to 45% in 06/2019 NYHA Class III congestive heart failure Chronic left bundle branch block Status post Bi V pacemaker defibrillator 09/26/2020 Medtronic Model: Elizabeth AUTOMATION TESTER-P [id number] Frequent PVCs Hyperlipidemia Chart history of hypertension with patient reporting chronic hypotension GERD Status post multiple lumbar/sacral injections Status post injection of IV drug Status postcholecystectomy Status post upper eyelid revision Status post cataract extraction Family History: Mother with aplastic anemia at the age of 82, with a history of ASCVD and PAD. Father with CAD, ND in his early 60s, status post CABG, also with a history of diabetes Social History: Former smoker, 1/2 pack/day x 30 years, quitting in 2001. No smokeless tobacco use. No alcohol. No illegal drug use. 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 Shortness of breath. Chronic obstructive pulmonary disease. Abdominal bloating. Intermittent PND. No lower extremity peripheral edema. Bladder spasms. Diarrhea. Stool incontinence. Irritable bowel syndrome. Arthritis. Chronic back pain Allergies Allergy/AdvReac Type Severity Reaction Status Date / Time bee venom protein (honey bee) Allergy Severe ANAPHYLAXIS Verified 09/20/22 01:06 nickel Allergy Mild Redness of Verified 09/20/22 01:06 Skin Iodinated Contrast Media Allergy Unknown SOB,CRACKLI Verified 09/20/22 01:06 NG,WHEEZING Sulfa (Sulfonamide Allergy Unknown HIVES Verified 09/20/22 01:06 Antibiotics) Home Medications Medication Instructions Recorded Confirmed Type aspirin 81 mg tablet,delayed 81 mg PO QAM 07/06/20 09/20/22 History release gabapentin 300 mg capsule 300 mg PO QID 07/06/20 09/20/22 History loteprednol etabonate 0.5 % eye 1 drp OPB BID 07/06/20 09/20/22 History gel drops (Lotemax) sacubitril 24 mg-valsartan 26 mg 0.5 tab PO BID #15 tabs 02/11/21 09/20/22 Rx tablet (Entresto) amiodarone 200 mg tablet 100 mg PO Q OTHER DAY 09/20/22 09/20/22 History furosemide 20 mg tablet See Rx Instructions .Route .COMPLEX 09/20/22 09/20/22 History levothyroxine 25 mcg tablet 25 mcg PO DAILYBB 09/20/22 09/20/22 History pantoprazole 20 mg tablet,delayed 20 mg PO AMHS 09/20/22 09/20/22 History release Patient History Social History Smoking Status: Former smoker Do You Dip or Chew Tobacco: No; Hx Alcohol Use: No Hx Substance Use: No Preferred Language: Welsh Communication Ability: Effective Oracle Bpm Consultant Required: No Beliefs That Will Affect Care: None Current Living Situation: Alone Current Living Situation Comment: lives home alone How many Children do You have: 0 Other Information That Helps Us Care for You: No Feels Safe at Home: Yes Safety Concerns: Feels Safe At This Time Assistive Devices: None Review of Systems Review of Systems: Complete review of systems is otherwise as stated above, negative, noncontributory Physical Exam Physical Exam: General: A&Ox3. NAD. Skin: ? Blue-abraham skin discoloration on the face HENT: Normocephalic. Atraumatic. Eyes: PER. Conjunctiva pink, sclera clear. Neck: No carotid bruits. + JVD. Heart: Regular, paced. Soft apical systolic murmur. No rub. No gallop. Lungs: Left greater than right bibasilar rales. No wheeze. Abdomen: +BS. Soft. Nontender. No masses or organomegaly. Extremities: No clubbing, cyanosis, or edema. Limited neurological examination is without focal deficits. Pulses: radial=2/4, posterior tibial=2/4. Results & Data Vital Signs (Past 12 Hours) Vital Signs Temp Pulse Pulse Resp BP Pulse Ox O2 Del Method 09/23/22 11:57 36.0 C L 76 16 98/66 L 93 Nasal Cannula 09/23/22 09:12 Nasal Cannula 09/23/22 08:05 36.2 C L 77 16 92/64 L 94 Nasal Cannula 09/23/22 07:04 74 09/23/22 03:14 70 95 Nasal Cannula 09/23/22 03:09 36.3 C L 70 18 92/61 L 93 Nasal Cannula O2 Flow Rate 09/23/22 11:57 1 09/23/22 09:12 1 09/23/22 08:05 1 09/23/22 07:04 09/23/22 03:14 1 09/23/22 03:09 2 Laboratory Results Comprehensive Metabolic Panel 09/23/22 Range/Units 07:27 Sodium 126 L (136-145) mmol/L Potassium 4.9 (3.5-5.1) mmol/L Chloride 97 L (98-107) mmol/L Carbon Dioxide 18 L (21-32) mmol/L BUN 82 H (6-23) mg/dl Creatinine 2.35 H D (0.6-1.2) mg/dl Glucose 94 (70-99(Fasting)) mg/dl Calcium 8.6 (8.6-10.3) mg/dl Intake and Output 09/22/22 09/23/22 09/23/22 22:59 06:59 14:59 Intake Total 50 / 1050 1000 / 1050 97.333 / 97.333 Balance 50 / 1050 1000 / 1050 97.333 / 97.333 Intake: IV 50 / 1050 1000 / 1050 97.333 / 97.333 Sodium Chloride 0.9% 1000ML 1, 1000 / 1000 97.333 / 97.333 000 ml @ 80 mls/hr IV .[id number] EUGENIO Rx#:[id number] cefTRIAXone SODIUM 1,000 mg In 50 / 50 Dextrose 5% Ad-Van 50 ml @ 100 mls/hr IV Q24H EUGENIO Rx#:[id number] Other: Other Intake Source Sips # Unmeasured Voids 1 Weight 50.8 kg Weight Measurement Method Built in [facility]
--- NOTE | 2022-09-23 15:39 | CT Scan Report ---
CT SCAN OF THE CHEST WITHOUT IV CONTRAST CLINICAL HISTORY: Dyspnea. COMPARISON STUDY: Chest x-ray dated 09/23/2022. TECHNIQUE: CT scan of the thorax was performed from the thoracic inlet to the upper abdomen. Images are reviewed in the axial, sagittal, and coronal planes. IV contrast was not administered for this ex amination as per the referring clinician. A dose lowering technique was utilized adhering to the [facility] of [place]. CT DOSE: 207.58 mGy.cm FINDINGS: Thyroid: Imaged portions of the thyroid gland are normal in size and attenuation. Thoracic aorta: There is atherosclerotic calcification of the thoracic aorta, which is normal in alvin maribell and demonstrates standard 3-vessel arch anatomy. Heart: A cardiac pacemaker is present in the left chest wall. The heart is enlarged and without peric ardial effusion. Enlargement of the main pulmonary arteries suggest pulmonary artery hypertension. Lungs and pleural spaces: There is moderate to severe emphysema. There are right larger than left ple ural effusions with dependent atelectasis. There are scattered calcified granulomas. Mild intralobula r septal thickening is observed. Mediastinum: There is no mediastinal lymphadenopathy. Gaby: Not well assessed without IV contrast. Axillae: There is no axillary lymphadenopathy. Upper abdomen: There is a small volume of upper abdominal ascites. Partially visualized upper abdomin al viscera is otherwise grossly unremarkable. Skeletal structures: The skeletal structures are heterogeneously osteopenic. No lytic or blastic bony lesions are seen. Degenerative change is noted in the shoulders and thoracic spine. Soft tissues: There is body wall edema. IMPRESSION: 1. Cardiomegaly and cardiac pacemaker. Intralobular septal thickening could represent acute versus ch ronic congestive change. Clinical correlation will be required. 2. Moderate to severe emphysema. 3. Right larger than left pleural effusions with dependent atelectasis. 4. Small volume upper abdominal ascites. 5. Additional findings as above. ACT 112: Negative or not required by law. Electronically signed by: Dominic Disla M.D. 09/23/2022 3:36 PM
--- NOTE | 2022-09-23 16:02 | Ultrasound Report ---
RENAL ULTRASOUND CLINICAL HISTORY: Acute kidney injury. COMPARISON STUDY: None. TECHNIQUE: Sonography of the kidneys and the urinary bladder was performed. FINDINGS: The right kidney measures 9.3 cm in maximal dimension and the left measures 9.5 cm. There i s no hydronephrosis. Renal echogenicity is increased. No renal calculi are identified by sonography. A few small bilateral renal cysts are noted. Both ureteral jets were identified. Incidental note is m capri of small bilateral pleural effusions and a small amount of abdominal and pelvic ascites. IMPRESSION: 1. No hydronephrosis. 2. Echogenic kidneys. 3. Small bilateral pleural effusions and a small amount of abdominal and pelvic ascites. ACT 112: Negative or not required by law. Electronically signed by: Mariano Mcnair M.D. 09/23/2022 4:01 PM
--- NOTE | 2022-09-23 16:12 | Hospitalist Progress Note ---
Date of Service September 23, 2022 Assessment & Plan (1) Diarrhea: Plan: 77-year-old female with past med significant for hyperlipidemia, COPD chronic systolic CHF EF 15% 2018 improved to 45% in 2011 and in 2019 but again worsened to 30 to 34% with PVCs in June 2020, s/p biventricular pacemaker, left bundle branch block history of bradycardia, history of A-fib, irritable bowel syndrome, chronic kidney disease stage III, generalized osteoarthritis, history of tobacco abuse presents with diarrhea for last 2 3 days, nausea and also feeling short of breath. Diarrhea--Likely overflow diarrhea secondary to fecal retention Fecal retention Patient denies any recent antibiotic use, travel, similar complaints with family --KUB:Nonobstructive bowel gas pattern. Moderate fecal retention. Stool studies pending IV fluids as needed Continue bowel regimen SAM ? ATN Non anion gap Metabolic acidosis In setting of volume overload Presented with creatinine of 2.0 Cr 2.35 today Held Lasix and Entresto Avoid nephrotoxic agents as able Received gentle IV fluids Continue IV Lasix as per nephrology/cardiology Monitor renal function Appreciate nephrology input Hyponatremia Likely due to hypervolemia Sodium 124 today Nephrology on board Monitor sodium levels Elevated troponin Likely due to demand ischemia in setting of SAM Monitor Possible UTI Urine culture: Mixed probable skin stuart Empirically on Rocephin-- completed 3 day course Acute on Chronic systolic CHF EF was 15% in 2019 improved to 45% in 2011 and 2019 but worsened again to 30 to 34% with PVCs in June 2020 S/p biventricular pacemaker --CT chest:Cardiomegaly and cardiac pacemaker. Intralobular septal thickening could represent acute versus chronic congestive change. Clinical correlation will be required. Moderate to severe emphysema. Right larger than left pleural effusions with dependent atelectasis. Small volume upper abdominal ascites. Holding Entresto due to SAM monitor volume status Restarted diuretics Appreciate Cardiology Input Left bundle-branch block Frequent PVCs On amiodarone monitor Hypothyroidism Abnormal thyroid function test Continue levothyroxine Will need repeat thyroid function test as outpatient DVT Px Heparin SQ Code Status Full code (2) SAM (acute kidney injury): Admission and Anticipated Discharge Date Admission Date: September 20, 2022 Subjective Patient is seen and examined at bedside States feeling worse today Reports generalized weakness Had small bowel movement today Renal function worsening Discussed with nephrology today Bladder spasms resolved Denies any chest pain, dizziness, nausea, vomiting, abdominal pain Review of Systems Review of Systems: All systems reviewed & are unremarkable except as noted in Subjective Physical Exam Physical Exam: Physical Exam: Vitals signs as noted above General Appearance: Thin, frail, elderly, no apparent distress Head: normocephalic, Atraumatic Eyes: normal inspection, EOMI Neck: supple, Trachea midline Respiratory/Chest: Normal breath sounds, CTA, No accessory muscle use Cardiovascular: S1, S2, +murmur Abdomen/GI:Soft, Non tender, Bowel sounds present Extremities/Musculoskeletal:normal inspection, no edema Neurologic/Psych:AAOX3, grossly no focal neurological deficits Skin: normal color, warm Results & Data Results & Data Vital Signs (Past 12 Hours) Vital Signs Temp Pulse Pulse Resp BP Pulse Ox O2 Del Method 09/23/22 15:45 92 Room Air 09/23/22 15:39 35.9 C L 71 16 99/65 L 85 L Room Air 09/23/22 14:58 85 09/23/22 11:57 36.0 C L 76 16 98/66 L 93 Nasal Cannula 09/23/22 09:12 Nasal Cannula 09/23/22 08:05 36.2 C L 77 16 92/64 L 94 Nasal Cannula 09/23/22 07:04 74 O2 Flow Rate 09/23/22 15:45 09/23/22 15:39 09/23/22 14:58 09/23/22 11:57 1 09/23/22 09:12 1 09/23/22 08:05 1 09/23/22 07:04 Laboratory Results [facility] 09/23/22 09/23/22 07:27 13:53 Sodium 126 L 124 L Potassium 4.9 Chloride 97 L Carbon Dioxide 18 L BUN 82 H Creatinine 2.35 H D Glucose 94 Calcium 8.6
[2022-09-23 18:29] LABS: Appearance Urine Cloudy (Clear); Bacteria Urine Automated 1+ (Negative); Bilirubin Urine Negative (Negative); Blood Urine 1+ (Negative); Color Urine Orange; Epithelial Cell Urine Auto >30 /lpf (0-5); Glucose Urine UA Negative (Negative); Ketones Urine Negative (Negative); Leukocyte Esterase Urine 2+ (Negative); Nitrite Urine Positive (Negative); Protein Urine 1+ (Negative); Specific Gravity Urine 1.017 (1.000-1.030); Urobilinogen Urine Negative (Negative)
[2022-09-23 18:48] LABS: Cast Urine Automated >30 /lpf (0-5); Mucus Urine Present (None Prsent); RBC Urine Automated 0-4 /hpf (0-4)
[2022-09-23 19:08] LABS: Creatinine Urine Random 90.3 mg/dl
[2022-09-23] MEDS: METOPROLOL SUCC 25MG EXT REL TAB PO SCH (20:00)
[2022-09-23] MEDS: ACETAMINOPHEN 325 MG TAB PO PRN (20:01)
[2022-09-24 01:10] LABS: Adenovirus F 40/41 PCR Not Detected (NotDetected); Astrovirus PCR Not Detected (NotDetected); Campylobacter PCR Not Detected (NotDetected); Cryptosporidium PCR Not Detected (NotDetected); Cyclospora cayetanensis PCR Not Detected (NotDetected); Entamoeba histolytica PCR Not Detected (NotDetected); Enteroaggregative E.coli(EAEC) Not Detected (NotDetected); Enteropathogenic E.coli (EPEC) Not Detected (NotDetected); Enterotoxigenic E.coli (ETEC) Not Detected (NotDetected); Giardia lamblia PCR Not Detected (NotDetected); Norovirus GI/GII PCR Not Detected (NotDetected); Plesiomonas shigelloides PCR Not Detected (NotDetected); Rotavirus A PCR Not Detected (NotDetected); Salmonella PCR Not Detected (NotDetected); Sapovirus PCR Not Detected (NotDetected); Shiga-like Toxin E.coli (STEC) Not Detected (NotDetected); Shigella/Enteroinvasive E.coli Not Detected (NotDetected); Vibrio cholerae PCR Not Detected (NotDetected); Vibrio species PCR Not Detected (NotDetected); Yersinia enterocolitica PCR Not Detected (NotDetected)
[2022-09-24] MEDS ORDERED: ALBUMIN 25% 25 GM/100 ML VIAL IV ONE ×2 (02:45→06:25)
[2022-09-24] MEDS: FUROSEMIDE INJ 20 MG/2 ML VIAL IV SCH ×3 (03:10→18:01)
--- NOTE | 2022-09-24 06:26 | Communication Note ---
Date of Service: September 24, 2022 Made aware by RN of increasing lethargy, weakness. BSG 89 as per RN Patient admits to weakness. PPE Coherent, able to follow commands. Ap Lethargic episode Multifactorial worsening hyponatremia home gabapentin Rx contributory in the setting of worsening kidney dysfunction Patient appears weak but currently mentating well Check a.m. labs now Hold gabapentin for now CODE STATUS reviewed with patient in light of worsening kidney dysfunction. No CPR, no intubation, no dialysis as per patient directive.
[2022-09-24] MEDS ORDERED: ACETAMINOPHEN 1,000 MG/100 ML VIAL IV STA (06:42)
[2022-09-24 07:52] LABS: Albumin Globulin Ratio 1.8 (0.9-2); Bilirubin,Total 1.4 mg/dl (0.2-1.0); Calcium 9.1 mg/dl (8.6-10.3); Creatinine Clr Calc Pharmacy 14.3 ml/min; Est GFR (African American) 20.1 ml/min; Est GFR (Non-African American) 17.3 ml/min; Globulin 2.2 gm/dl (2.5-4.0); Potassium 5.5 mmol/L (3.5-5.1); Total Protein 6.2 gm/dl (6.0-8.3)
[2022-09-24 07:55] LABS: Basophils # (auto) 0.01 K/uL (0-0.2); Basophils % (auto) 0.1 %; Hematocrit (blood only) 36.7 % (37.0-47.0); Hemoglobin 12.3 g/dl (12.0-16.0); Immature Granulocytes # (auto) 0.06 K/uL (0.01-0.20); Immature Granulocytes % (auto) 0.8 %; Lymphocytes # (auto) 0.47 K/uL (1.2-3.4); Lymphocytes % (auto) 5.9 %; Mean Corpuscular Hemoglobin 32.3 pg (25.0-34.0); Mean Corpuscular Hgb Conc 33.5 g/dL (32.0-36.0); Mean Corpuscular Volume 96.3 fL (80.0-100.0); Mean Platelet Volume 11.6 fL (9.4-12.4); Monocytes # (auto) 0.73 K/uL (0.11-0.59); Monocytes % (auto) 9.2 %; Platelet Count 106 K/uL (130-400); RDW Coefficient of Variation 14.4 % (11.5-14.5); RDW Standard Deviation 49.3 fL (36.4-46.3); Red Blood Count 3.81 M/uL (4.20-5.40); White Blood Count 7.97 K/ul (4.8-10.8)
--- NOTE | 2022-09-24 08:12 | Nephrology Progress Note ---
Date of Service September 24, 2022 Assessment & Plan Admission and Anticipated Discharge Date Admission Date: September 20, 2022 Subjective Assessment & Plan (1) SAM (acute kidney injury): Creatinine has gone up the last 2 days despite getting IV fluid and Lasix and Entresto on hold. Clearly this is not a case of volume depletion as the cause of acute renal failure. This pattern of rise is consistent with ATN. Her urine on admission had a lot of epithelial cells Consistent with ATN. It is also worth noting that her blood pressure is marginal on a good day and she has COPD as well as CHF and at this age both these conditions make them very very susceptible to ATN during periods of transient hypoxia and hypotension. I would not give any more fluid Continue to hold Entresto based on CXR, CT and ECHO I think She is having very decompensated CHF causing Cardio renal Picture also on topof ATN will discuss with Cardiology whether any role for Dobutamine/Dopamine drip + lasix drip. She is not diuresing well. BUN is high. creat is rising, NA dropping and K rising because of inadequate renal perfusion. this is a very serious Situation at this time and difficult to manage. patient is very aware of situation. She said she knew this was coming at some point. does not want anything aggressive and is fine with " morphine and end it all" (2) Hyponatremia: Hyponatremia triggered by ATN and Severe CHF causing fluid retention in conjunction with holding Lasix and IV fluid. Free fluid restriction 1200 mL/day Unless she diurese adequately unlikely the Na improves. S---Patient is getting weaker. Labs getting worse. She is SOB and on o2. CXR, CT chest and ECHOall shows worsening CHF and very low LVEF 15%Not much urine with current lasix dose either. Physical Exam Physical Exam: Petite elderly female was not in overt respiratory distress she is on 1 L oxygen. She is able to give me a detailed accurate history of medical problem Neck: Neck is supple no jugular venous distention Respiratory: Bilateral decreased breath sound occasional basilar crackle Cardiovascular: irregular soft systolic murmur heard Gastrointestinal (Abdomen): Soft nontender Skin: No rash Results & Data Vital Signs (Past 12 Hours) Vital Signs Temp Pulse Pulse Resp BP BP Pulse Ox 09/24/22 07:40 69 20 93/67 L 94 09/24/22 03:41 36.2 C L 96/62 L 09/24/22 03:30 36.7 C 110 H 17 80/49 L 95 09/24/22 03:13 100/70 09/23/22 22:00 70 09/23/22 23:12 09/23/22 22:50 36.8 C 70 16 102/62 93 09/23/22 21:00 36.8 C 80 20 110/61 96 O2 Del Method O2 Flow Rate 09/24/22 07:40 Room Air 09/24/22 03:41 09/24/22 03:30 Nasal Cannula 1 09/24/22 03:13 09/23/22 22:00 09/23/22 23:12 Nasal Cannula 2 09/23/22 22:50 Nasal Cannula 1 09/23/22 21:00 Nasal Cannula 2
[2022-09-24] MEDS: LOTEMAX~ORDER AWAITING ACTION SCH ×3 (08:20→17:31)
[2022-09-24] MEDS: UREA (UREA-NA) 15 GM PACK PO SCH ×2 (08:38→20:28)
[2022-09-24] MEDS: ASPIRIN 81 MG ECTAB PO SCH (08:38)
[2022-09-24] MEDS: PANTOprazole 40 MG TAB PO SCH ×2 (08:38→20:26)
[2022-09-24] MEDS: DOCUSATE SODIUM 100 MG CAP PO SCH ×2 (08:38→20:21)
[2022-09-24] MEDS: ADVANCED PROBIOTIC 1250 MG CAPSULE PO SCH (08:38)
[2022-09-24] MEDS: HEPARIN SOD 5,000 UNIT/0.5 ML VIAL SQ SCH ×2 (08:39→20:26)
[2022-09-24 10:09] LABS: Base Excess ABG -7.7 mEq/L (-9-1.8); HCO3 ABG 16 mmol/L (19-24); PCO2 ABG 29 mmHg (35-46); PO2 ABG 80 mmHg (80-95); pH ABG 7.36 (7.35-7.45)
[2022-09-24 10:17] LABS: Allen Test POS (Pos)
[2022-09-24] MEDS: ACETAMINOPHEN 325 MG TAB PO PRN (10:29)
--- NOTE | 2022-09-24 11:15 | Cardiology Progress Note ---
Date of Service September 24, 2022 Assessment & Plan (1) Hyponatremia: (2) Weakness: (3) Diarrhea: (4) Dyspnea: (5) Acute on chronic heart failure: (6) Acute hypoxemic respiratory failure: (7) Acute HFrEF (heart failure with reduced ejection fraction): (8) Frequent unifocal PVCs: (9) Left bundle branch block (LBBB): (10) Non-ischemic cardiomyopathy: Plan Complex 77 year old female admitted on September 20, 2022 with complaints of worsening shortness of breath, weakness, nausea, decreased appetite, and diarrhea. Furosemide and Entresto held, receiving gentle fluid resuscitation with worsening dyspnea, resultant acute decompensated heart failure signs and symptoms in a patient with known severely reduced LV systolic function despite prior biventricular pacemaker implantation and improvement in frequent ventricular ectopics following the addition of amiodarone. Guideline directed medical therapy limited by poor patient tolerance, with chronic hypotension observed. Options of management discussed with patient in detail. She has made peace with her maker and would like palliative care evaluation while attempting augmentation of cardiac outpatient with low dose dobutamine while she knows may be futile and may result in her demise. Recommendations: IV dobutamine 2.5 mcg/kg/min Hold metoprolol succinate. Continue low-dose amiodarone Continue IV furosemide No Entresto, RE: acute renal dysfunction, hyperkalemia, hypotension Palliative Care Consultation Above pending evaluation/discussion with Dr. Singer Admission and Anticipated Discharge Date Admission Date: September 20, 2022 Supervising Physician Co-Signing Physician Notes Supervising Physician Attestation: I have personally performed a history and physical examination on the patient. I agree with the physician medical technician assistant's findings and plan as documented with the following additions. Subjective: In the interval between when patient was first seen and examined by Mr Worrellqamar today and when I had the opportunity to see her, she had been seen in palliative medicine consultation by Dr. Ellis. Exam: Cardiovascular regular rate, no murmurs Pulmonary: Decreased breath sounds at the bases Data: Creatinine 2.56, potassium 5.5, lactate 2.9, total bilirubin 1.4, AST 722, ALT 83 Assessment and Plan: Acute on chronic heart failure with reduced ejection fraction, severe left ventricular systolic dysfunction. Left ventricular ejection fraction the range of 15 to 20%, unchanged compared to January, Patient with low cardiac output symptoms. Progressive renal insufficiency and now hepatic insufficiency noted. Elevated lactate level. -Patient prefers de-escalation of care rather than trial of inotropic therapy with dobutamine. -Further laboratory studies have already been discontinued. -Case discussed with Dr. Cooley for the purpose of coordination of care. Randy Singer, Subjective Patient seen and examined. Chart, medications, and telemetry reviewed. Labs with multiple abnormalities - worsening renal function, hyponatremia, hyperkalemia, markedly abnormal LFT's Diffuse pain. Weakness. Increased lethargy. Shortness of breath. Notes "I've known this day was coming for 12 years." She has made peace with her maker and would like palliative care, consideration for hospice. Telemetry: Sinus/paced in the s September 23, 2022 TTE Interpretation Summary ([facility], Dr. Singer): Severely dilated LV. Diffuse myocardial thinning. Severe global hypokinesis of the left ventricle. LV systolic function is severely reduced. EF 15-20%. Mildly dilated RV, with severely reduced RV systolic function. Severely dilated left atrium. Mild mitral regurgitation. Atherosclerosis is noted in the visualized portion of the aortic arch. Grade II diastolic dysfunction. Review of Systems Review of Systems: Complete review of systems is otherwise as stated above, negative, noncontributory Physical Exam Physical Exam: General: A&Ox3. Lethargic. HENT: Normocephalic. Atraumatic. Eyes: PER. Conjunctiva pink, sclera clear. Neck: No carotid bruits. + JVD. Heart: Regular, paced. Soft apical systolic murmur. No rub. No gallop. Lungs: Left greater than right bibasilar rales. No wheeze. Abdomen: +BS. Soft. Nontender. No masses or organomegaly. Extremities: No clubbing, cyanosis, or edema. Limited neurological examination is without focal deficits. Pulses: radial=2/4, posterior tibial=2/4. Results & Data Vital Signs (Past 12 Hours) Vital Signs Temp Pulse Resp BP BP Pulse Ox O2 Del Method 09/24/22 09:00 Nasal Cannula 09/24/22 07:40 69 20 93/67 L 94 Room Air 09/24/22 03:41 36.2 C L 96/62 L 09/24/22 03:30 36.7 C 110 H 17 80/49 L 95 Nasal Cannula 09/24/22 03:13 100/70 O2 Flow Rate 09/24/22 09:00 1 09/24/22 07:40 09/24/22 03:41 09/24/22 03:30 1 09/24/22 03:13 Laboratory Results Cardiac Enzymes 09/24/22 Range/Units 07:04 AST 722 H (13-39) U/L CBC 09/24/22 Range/Units 07:04 WBC 7.97 (4.8-10.8) K/ul RBC 3.81 L (4.20-5.40) M/uL Hgb 12.3 (12.0-16.0) g/dl Hct 36.7 L (37.0-47.0) % Plt Count 106 L (130-400) K/uL Neut # (Auto) 6.70 H (1.40-6.50) K/uL Lymph # (Auto) 0.47 L (1.2-3.4) K/uL [place] # (Auto) 0.73 H (0.11-0.59) K/uL Eos # (Auto) 0.00 (0-0.50) K/uL Baso # (Auto) 0.01 (0-0.2) K/uL Comprehensive Metabolic Panel 09/23/22 09/23/22 09/24/22 Range/Units 13:53 19:42 01:01 Sodium 124 L 123 L 122 L (136-145) mmol/L Potassium (3.5-5.1) mmol/L Chloride (98-107) mmol/L Carbon Dioxide (21-32) mmol/L BUN (6-23) mg/dl Creatinine (0.6-1.2) mg/dl Glucose (70-99(Fasting)) mg/dl Calcium (8.6-10.3) mg/dl AST (13-39) U/L ALT (7-52) U/L Alkaline Phosphatase (34-104) U/L Total Protein (6.0-8.3) gm/dl Albumin (3.4-5.0) gm/dl 09/24/22 Range/Units 07:04 Sodium 123 L (136-145) mmol/L Potassium 5.5 H (3.5-5.1) mmol/L Chloride 93 L (98-107) mmol/L Carbon Dioxide 18 L (21-32) mmol/L BUN 128 H D (6-23) mg/dl Creatinine 2.56 H (0.6-1.2) mg/dl Glucose 97 (70-99(Fasting)) mg/dl Calcium 9.1 (8.6-10.3) mg/dl AST 722 H (13-39) U/L ALT 803 H (7-52) U/L Alkaline Phosphatase 110 H (34-104) U/L Total Protein 6.2 (6.0-8.3) gm/dl Albumin 4.0 (3.4-5.0) gm/dl Intake and Output 09/23/22 09/24/22 09/24/22 22:59 06:59 14:59 Intake Total 350 / 1107.333 200 / 1107.333 200 / 200 Output Total Balance 345 / 1097.333 195 / 1097.333 200 / 200 Intake: IV 100 / 197.333 200 / 200 Acetaminophen 1,000 mg In 100 100 / 100 ml @ 400 mls/hr IV NOW STA Rx#: [id number] Albumin 25% 25 gm In 100 ml @ 100 / 100 100 / 100 50 mls/hr IV ONE ONE Rx#: [id number] Oral 350 / 910 100 / 910 Output: # Bowel Movements 10 10 Other: # Unmeasured Voids 6 3 Weight 50.2 kg 50.2 kg Weight Measurement Method Standing Scale Patient Weight 09/25/22 06:59 Weight 50.2 kg
[2022-09-24] MEDS ORDERED: oxyCODONE HCL IR 5 MG TAB (IMMEDIATE RELEASE) PO PRN (12:13)
--- NOTE | 2022-09-24 12:13 | Palliative Care Consultation ---
Date of Consultation September 24, 2022 Assessment & Plan (1) Generalized pain: (2) Dyspnea and respiratory abnormalities: (3) Weakness generalized: (4) Fatigue: (5) Palliative care by specialist: Met with pt and provided overview of Palliative Medicine, a subspecialty that provides specialized medical care for people living with a serious illness by offering a focus on quality of life. Palliative Medicine is often conflated with hospice: I advised patient/family that Palliative and hospice can be partners but we are not the same. It is important to understand the difference so that we may be informed, and not afraid. Palliative Medicine works to improve QOL through reduction of symptom burden/more control over their illness, for both the patient and family. Palliative medicine clinicians are board certified, specially-trained and another member of the patient's medical care team. We often provide an extra layer of support because our care is based on the needs of the patient, not the prognosis; as such, it's appropriate at any age/advancing stage of a serious illness and can be provided along with curative treatment. Palliative Medicine clinicians are also trained in advanced communication methodologies, to facilitate complex discussions about advanced illness planning, which are needed to help assure that the treatment choices match the patient's goals, aka delivering Goal Concordant care. Finally, we discussed that hospice is a visiting nurse service that focuses on care delivered at the very end of life for patients with terminal illness, with life expectancy less than 6 month. (6) Advanced care planning/counseling discussion: I met with pt face to face for ACP discussion x 50min: She tells me she has reached the end of her rope and knows her time is running short. We discussed her MSOF and the unfixability of these issues. She is very aware of end stage disease progression. I shared my concern that she is fading quicker than perhaps we can work to get her home but she admits she is not able to accept that today/this minute. She did agree to de-escalation and stop telemetry/labs and improve pain and symptom mgt. She would ideally like to be able to stay in her home and feels she might need home with hospice after a short trial of PT. She says she has private nursing insurance and can afford an in home private caregiver. We spoke about the range of services offered and We discussed the goals of hospice as a patient service and the goals of care; we discussed EOL trajectories and transitions yolie the emotional impact of realizing mortality as a concrete reality from prior abstract considerations. Pt was reassured that no matter where they are along this trajectory, they are not alone - their medical team will remain by their side through their journey. Discussed the pros/cons of accepting help when especially weakened and distressed by pain-which would also help provide relief/decrease caregiver burden/strain. I provided education about the hospice benefit: an interdisciplinary program offered by nurses, nurses aides, social workers, chaplains and a medical anthropologist for patients with a terminal condition and a life expectancy of less than 6 months. This is covered by Medicare at 100%/no out of pocket expense to patient and all meds/supplies needed by patient for the reason they are on hospice are paid for/covered by hospice. The goal is assure quality of life of the patient in their home setting (home, senior care, inpatient hospice setting) by providing symptoms management, psychosocial and spiritual support. However, they cannot offer 24 hours care and if the family is unable to provide that care, they will have to consider personal care with out of pocket cost vs. senior care placement. We discussed the goals of hospice as a patient service and the goals of care; we discussed EOL trajectories and transitions yolie the emotional impact of realizing mortality as a concrete reality from prior abstract considerations. Pt was reassured that no matter where they are along this trajectory, they are not alone - their medical team will remain by their side through their journey. Discussed the pros/cons of accepting help when especially weakened and distressed by pain-which would also help provide relief/decrease caregiver burden/strain. If she remained stable for dc, I offered her option of home with hospice + caregiver if she didn't want rehab (she says she thought she "had" to go but doesn't want to go). She says she has a list of private agencies to call for a caregiver but it is at home, can CM bring a new list tomorrow and help her find that support. For now, she wants to de escalate care/stop monitoring and labs/liberate diet/allow more PO fluid for pleasure+comfort, improve pain mgt, more hydration and to speak with CM tomorrow, says she is too tired and overwhelmed. I am adding some pain mgt for her and will re eval tomorrow. She agrees that if she worsens this admission she would want transition to full SMALL BUSINESS BANKING OFFICER and understand she may in the hospital. She states she would only desire a focus on comfort at this junction. For now, will defer moving her to SMALL BUSINESS BANKING OFFICER bc she is still thinking about possible SNF rehab trial. Plan * ACP and GOC as noted above * pain mgt modified * I have updated primary team. She would like to speak with CM tomorrow, states she is too tired today * low threshold to move to comfort if she acutely worsens. She si aware she is nearing her dying time and may have an acute decline this admission. Thank you for allowing us to participate in the ongoing care of this patient. Please don't hesitate to call or page with any additional concerns. Dr. Haley Ellis DNP Director, Palliative Care History of Present Illness Reason for Consultation: pt wants comfort care Attending Physician: Po Cooley MD History of Present Illness Per 09/20/22 admission note: Katy Davis is a "77-year-old female with past med significant for hyperlipidemia, COPD chronic systolic CHF/EF was 15% in 2018 improved to 45% in 2011 and 2019 but worsened again to 30 to 34% with PVCs in June 2020, now s/p biventricular pacemaker; LBB; hx bradycardia, history of A- fib, irritable bowel syndrome, chronic kidney disease stage III, generalized osteoarthritis, history of tobacco abuse presents with diarrhea for last 2 3 days, nausea and also feeling short of breath." cardiology notes 09/24/22 sates: "Complex 77 year old female admitted on September 20, 2022 with complaints of worsening shortness of breath, weakness, nausea, decreased appetite, and diarrhea. Furosemide and Entresto held, receiving gentle fluid resuscitation with worsening dyspnea, resultant acute decompensated heart failure signs and symptoms in a patient with known severely reduced LV systolic function despite prior biventricular pacemaker implantation and improvement in frequent ventricular ectopics following the addition of amiodarone. Guideline directed medical therapy limited by poor patient tolerance, with chronic hypotension observed. Options of management discussed with patient in detail. She has made peace with her maker and would like palliative care evaluation while attempting augmentation of cardiac outpatient with low dose dobutamine while she knows may be futile and may result in her demise." Pt is seen bedside, no family present. She tells me "I've been dealing with this steadily failing heart for over ten years. I know I am getting to the end of my time. I just want to be more comfortable, have less pain and drink more water. I am so tired of feeling so dry and thirsty. 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 She lives in a condo, 2 floors but everything she needs is on first floor. She has a cat that spends a lot of time in the basement. She has made arrangements for custody of her cat, knowing her medical illness is worsening. She is prepared to "have to move" to a SNF but also adds she has coverage through private insurance to have caregivers in her home via this policy and has a list of agencies at home. She tells me her organs are "shutting down - my heart, then the kidneys, it's all expected. That's what happens with heart failure technician terminal and repeater. I am aware." Allergies Allergy/AdvReac Type Severity Reaction Status Date / Time bee venom protein (honey bee) Allergy Severe ANAPHYLAXIS Verified 09/20/22 01:06 nickel Allergy Mild Redness of Verified 09/20/22 01:06 Skin Iodinated Contrast Media Allergy Unknown SOB,CRACKLI Verified 09/20/22 01:06 NG,WHEEZING Sulfa (Sulfonamide Allergy Unknown HIVES Verified 09/20/22 01:06 Antibiotics) Home Medications Medication Instructions Recorded Confirmed Type aspirin 81 mg tablet,delayed 81 mg PO QAM 07/06/20 09/20/22 History release gabapentin 300 mg capsule 300 mg PO QID 07/06/20 09/20/22 History loteprednol etabonate 0.5 % eye 1 drp OPB BID 07/06/20 09/20/22 History gel drops (Lotemax) sacubitril 24 mg-valsartan 26 mg 0.5 tab PO BID #15 tabs 02/11/21 09/20/22 Rx tablet (Entresto) amiodarone 200 mg tablet 100 mg PO Q OTHER DAY 09/20/22 09/20/22 History furosemide 20 mg tablet See Rx Instructions .Route .COMPLEX 09/20/22 09/20/22 History levothyroxine 25 mcg tablet 25 mcg PO DAILYBB 09/20/22 09/20/22 History pantoprazole 20 mg tablet,delayed 20 mg PO AMHS 09/20/22 09/20/22 History release Patient History Social History Smoking Status: Former smoker Do You Dip or Chew Tobacco: No; Hx Alcohol Use: No Hx Substance Use: No Preferred Language: Angolan Communication Ability: Effective Tire Bladder Maker Required: No Beliefs That Will Affect Care: None Current Living Situation: Alone Current Living Situation Comment: lives home alone How many Children do You have: 0 Other Information That Helps Us Care for You: No Feels Safe at Home: Yes Safety Concerns: Feels Safe At This Time Assistive Devices: None Review of Systems Review of Systems: All systems reviewed & are unremarkable except as noted in Subjective Physical Exam Constitutional: + acute distress, + ill appearing, + frail appearing and + underweight Eyes: PERRL, conjunctivae normal, anicteric sclerae ENMT: dry MM dentition fair neck supple, no stridor Respiratory: normal effort at rest diminished breath sounds, few crackles Cardiovascular: Reg rhythm, paced on tele, +murmur Gastrointestinal (Abdomen): normal bowel sounds, soft, nontender, no hepatosplenomegaly Musculoskeletal: generalized weakness, pain on palpation LLE Skin: pale, scatt ecchymoses Neurologic: AAOx3 but drifting off towards end of my visit and had trouble staying awake/focused Psychiatric: subdued, calm Results & Data Vital Signs (Past 12 Hours) Vital Signs Temp Pulse Resp BP BP Pulse Ox O2 Del Method 09/24/22 11:31 71 20 94/62 L 92 Nasal Cannula 09/24/22 09:00 Nasal Cannula 09/24/22 07:40 69 20 93/67 L 94 Room Air 09/24/22 03:41 36.2 C L 96/62 L 09/24/22 03:30 36.7 C 110 H 17 80/49 L 95 Nasal Cannula 09/24/22 03:13 100/70 O2 Flow Rate 09/24/22 11:31 1 09/24/22 09:00 1 09/24/22 07:40 09/24/22 03:41 09/24/22 03:30 1 09/24/22 03:13 Laboratory Results data reviewed Diagnostic Findings data reviewed PG Care Time/CCT Total # of Minutes Spent Total Time Spent: 100 Total Time Spent with Patient: Total time spent is greater than 50% in coordination of care (as documented) at patient's floor/unit and/or counseling patient: 15min chart review 20 min with pt/exam 50 min ACP 15 min care coordination, d/w primary team [place] [address] IN/OBS CONSULT LVL 5,80M Patient Type New History Comprehensive Exam Comprehensive Medical Decision Making High Complexity Diagnoses Generalized pain R52 Dyspnea and respiratory abnormalities R06.00; R06.89 Weakness generalized R53.1 Fatigue R53.83 Palliative care by specialist Z51.5 Advanced care planning/counseling discussion Z71.89
--- NOTE | 2022-09-24 12:44 | Hospitalist Progress Note ---
Date of Service September 24, 2022 Assessment & Plan (1) Diarrhea: Plan: 77-year-old female with past med significant for hyperlipidemia, COPD chronic systolic CHF EF 15% 2018 improved to 45% in 2011 and in 2019 but again worsened to 30 to 34% with PVCs in June 2020, s/p biventricular pacemaker, left bundle branch block history of bradycardia, history of A-fib, irritable bowel syndrome, chronic kidney disease stage III, generalized osteoarthritis, history of tobacco abuse presents with diarrhea for last 2 3 days, nausea and also feeling short of breath. Acute on chronic systolic heart failure Acute kidney injury Hyponatremia Patient with a history of HFrEF presented to the ED with shortness of breath and diarrhea. Was started on IV fluids. Developed volume overload. Chest x-ray personally reviewed from yesterday; increase in pulmonary edema. Labs reviewed her creatinine is uptrending along with potassium consistent with progressive SAM Sodium has down trended to 123 Also, liver enzymes have up trended as well. Discussion done with the patient at bedside. She reports that she had anticipated this problem for very long time. She understand that she has ongoing multiorgan failure. She reports that she wants to be made as comfortable as possible. Palliative care consulted; will discontinue lab work, continue symptomatic care. Diarrhea--Likely overflow diarrhea secondary to fecal retention Fecal retention Patient denies any recent antibiotic use, travel, similar complaints with family --CHICHI personally reviewed:Nonobstructive bowel gas pattern. Moderate fecal retention. Stool studies negative Continue bowel regimen Elevated liver enzymes Liver enzymes uptrending; likely due to hypotension or congestive hepatopathy Currently goal of treatment focused on symptom control. Elevated troponin Likely due to demand ischemia in setting of SAM Monitor Possible UTI Urine culture: Mixed probable skin stuart Empirically on Rocephin-- completed 3 day course Left bundle-branch block Frequent PVCs On amiodarone monitor Hypothyroidism Abnormal thyroid function test Continue levothyroxine DVT Px Heparin SQ Code Status Full code Updated her brother (David- [phone]) over the phone as per patient's request. Time spent evaluating patient, direct bedside care, chart review, placing orders, interpretation of diagnostic studies, discussion with consultants, patient, and family members, as well as other required patient management activities is 60 minutes. Please note the above document was generated using voice recognition software. It may contain grammatical, syntax or spelling errors. Any formal questions or concerns about the content, text or information contained within the body of this dictation should be directly addressed to the provider for clarification (2) SAM (acute kidney injury): Admission and Anticipated Discharge Date Admission Date: September 20, 2022 Subjective Patient seen and examined at bedside. She is lying in the bed; appears tired and lethargic. She reports pain in her bilateral legs. Reports that she wants to be made as comfortable as possible. Review of Systems Review of Systems: All systems reviewed & are unremarkable except as noted in Subjective Physical Exam Physical Exam: General Appearance: Thin, frail, elderly, appears tired. Head: normocephalic, Atraumatic Eyes: normal inspection, EOMI Neck: supple, Trachea midline Respiratory/Chest: Normal breath sounds, CTA, No accessory muscle use Cardiovascular: S1, S2, +murmur Abdomen/GI:Soft, Non tender, Bowel sounds present Extremities/Musculoskeletal:normal inspection, minimal edema. Neurologic/Psych:AAOX3, grossly no focal neurological deficits Skin: normal color, warm Results & Data Results & Data Vital Signs (Past 12 Hours) Vital Signs Temp Pulse Resp BP BP Pulse Ox O2 Del Method 09/24/22 11:31 71 20 94/62 L 92 Nasal Cannula 09/24/22 09:00 Nasal Cannula 09/24/22 07:40 69 20 93/67 L 94 Room Air 09/24/22 03:41 36.2 C L 96/62 L 09/24/22 03:30 36.7 C 110 H 17 80/49 L 95 Nasal Cannula 09/24/22 03:13 100/70 O2 Flow Rate 09/24/22 11:31 1 09/24/22 09:00 1 09/24/22 07:40 09/24/22 03:41 09/24/22 03:30 1 09/24/22 03:13 Laboratory Results Laboratory Results WBC 7.97 K/ul (4.8-10.8) 09/24/22 07:04 RBC 3.81 M/uL (4.20-5.40) L 09/24/22 07:04 Hgb 12.3 g/dl (12.0-16.0) 09/24/22 07:04 Hct 36.7 % (37.0-47.0) L 09/24/22 07:04 MCV 96.3 fL (80.0-100.0) 09/24/22 07:04 MCH 32.3 pg (25.0-34.0) 09/24/22 07:04 MCHC 33.5 g/dL (32.0-36.0) 09/24/22 07:04 RDW Std Deviation 49.3 fL (36.4-46.3) H 09/24/22 07:04 RDW Coeff of Heena 14.4 % (11.5-14.5) 09/24/22 07:04 Plt Count 106 K/uL (130-400) L 09/24/22 07:04 MPV 11.6 fL (9.4-12.4) 09/24/22 07:04 Immature Gran % (Auto) 0.8 % 09/24/22 07:04 Neut % (Auto) 84.0 % 09/24/22 07:04 Lymph % (Auto) 5.9 % 09/24/22 07:04 [place] % (Auto) 9.2 % 09/24/22 07:04 Eos % (Auto) 0.0 % 09/24/22 07:04 Baso % (Auto) 0.1 % 09/24/22 07:04 Neut # (Auto) 6.70 K/uL (1.40-6.50) H 09/24/22 07:04 Lymph # (Auto) 0.47 K/uL (1.2-3.4) L 09/24/22 07:04 [place] # (Auto) 0.73 K/uL (0.11-0.59) H 09/24/22 07:04 Eos # (Auto) 0.00 K/uL (0-0.50) 09/24/22 07:04 Baso # (Auto) 0.01 K/uL (0-0.2) 09/24/22 07:04 Immature Gran # (Auto) 0.06 K/uL (0.01-0.20) 09/24/22 07:04 Absolute Nucleated RBC 0.02 K/uL (0-0.12) 09/20/22 06:58 Nucleated RBC % (auto) 0.4 % 09/20/22 06:58 ABG pH 7.36 (7.35-7.45) 09/24/22 09:46 ABG pCO2 29 mmHg (35-46) L 09/24/22 09:46 ABG pO2 80 mmHg (80-95) 09/24/22 09:46 ABG HCO3 16 mmol/L (19-24) L 09/24/22 09:46 ABG O2 Saturation 95.0 % (90-95) 09/24/22 09:46 ABG Base Excess -7.7 mEq/L (-9-1.8) 09/24/22 09:46 Eulogio Test POS (Pos) 09/24/22 09:46 Barometric Pressure Cancelled 09/24/22 07:02 Oxygen Given ROOM AIR 09/24/22 09:46 Sodium 123 mmol/L (136-145) L 09/24/22 07:04 Potassium 5.5 mmol/L (3.5-5.1) H 09/24/22 07:04 Chloride 93 mmol/L (98-107) L 09/24/22 07:04 Carbon Dioxide 18 mmol/L (21-32) L 09/24/22 07:04 Anion Gap 12 (3-11) H 09/24/22 07:04 BUN 128 mg/dl (6-23) H D 09/24/22 07:04 Creatinine 2.56 mg/dl (0.6-1.2) H 09/24/22 07:04 Est Cr Clr Drug Dosing 14.3 ml/min 09/24/22 07:04 Est GFR ( Amer) 20.1 ml/min 09/24/22 07:04 Est GFR (Non-Af Amer) 17.3 ml/min 09/24/22 07:04 BUN/Creatinine Ratio 50.0 (10-20) H 09/24/22 07:04 Glucose 97 mg/dl (70-99(Fasting)) 09/24/22 07:04 POC Glucose 89 mg/dl (70-99) 09/24/22 06:20 Lactate 2.9 mmol/L (0.4-2.0) H* 09/24/22 07:04 Calcium 9.1 mg/dl (8.6-10.3) 09/24/22 07:04 Magnesium 2.2 mg/dl (1.7-2.4) 09/21/22 06:53 Total Bilirubin 1.4 mg/dl (0.2-1.0) H 09/24/22 07:04 AST 722 U/L (13-39) H 09/24/22 07:04 ALT 803 U/L (7-52) H 09/24/22 07:04 Alkaline Phosphatase 110 U/L (34-104) H 09/24/22 07:04 Ammonia 67.0 umol/L (18-72) 09/24/22 07:04 Troponin I High Sens 52.9 pg/ml (0-14) H* 09/20/22 19:09 B-Natriuretic Peptide 3035 pg/ml (0-100) H 09/20/22 00:10 Total Protein 6.2 gm/dl (6.0-8.3) 09/24/22 07:04 Albumin 4.0 gm/dl (3.4-5.0) 09/24/22 07:04 Globulin 2.2 gm/dl (2.5-4.0) L 09/24/22 07:04 Albumin/Globulin Ratio 1.8 (0.9-2) 09/24/22 07:04 Lipase 13 U/L (11-82) 09/20/22 00:10 Procalcitonin 0.09 ng/ml (0-0.5) 09/21/22 06:53 TSH 2.992 uIu/ml (0.300-4.500) 09/20/22 06:58 Free T4 2.48 ng/dl (0.61-1.60) H 09/20/22 00:10 Urine Color [place] 09/23/22 18:00 Urine Appearance Cloudy (Clear) A 09/23/22 18:00 Urine pH 5.0 (4.5-7.5) 09/23/22 18:00 Ur Specific [place] 1.017 (1.000-1.030) 09/23/22 18:00 Urine Protein 1+ (Negative) H 09/23/22 18:00 Urine Glucose (UA) Negative (Negative) 09/23/22 18:00 Urine Ketones Negative (Negative) 09/23/22 18:00 Urine Blood 1+ (Negative) H 09/23/22 18:00 Urine Nitrite Positive (Negative) A 09/23/22 18:00 Urine Bilirubin Negative (Negative) 09/23/22 18:00 Urine Urobilinogen Negative (Negative) 09/23/22 18:00 Ur Leukocyte Esterase 2+ (Negative) H 09/23/22 18:00 Urine WBC (Auto) 10-30 /hpf (0-5) H 09/23/22 18:00 Urine RBC (Auto) 0-4 /hpf (0-4) 09/23/22 18:00 U Hyaline Cast (Auto) >30 /lpf (0-5) H 09/23/22 18:00 U Epithel Cells (Auto) >30 /lpf (0-5) H 09/23/22 18:00 Urine Bacteria (Auto) 1+ (Negative) H 09/23/22 18:00 Urine Mucus Present (None Prsent) A 09/23/22 18:00 Urine Yeast Not Reportable 09/23/22 18:00 Urine Osmolality 460 mOsm/kg (500-800) L 09/23/22 18:00 Ur Random Creatinine 90.3 mg/dl 09/23/22 18:00 Ur Random Sodium 26 mmol/L 09/23/22 18:00 Stl C. cayetanensis PCR Not Detected (NotDetected) 09/23/22 Unknown Stool Rotavirus A PCR Not Detected (NotDetected) 09/23/22 Unknown Stl Adenov F 40/41 PCR Not Detected (NotDetected) 09/23/22 Unknown Stool Astrovirus (PCR) Not Detected (NotDetected) 09/23/22 Unknown Stool Campylobacter PCR Not Detected (NotDetected) 09/23/22 Unknown Stl C. diff Tox B Gene Negative Cdiff Gene (Neg) 09/23/22 Unknown Stool Cryptosporidium PCR Not Detected (NotDetected) 09/23/22 Unknown Stl E.coli Shiga Tox PCR Not Detected (NotDetected) 09/23/22 Unknown Stl Enterotoxigenic E PCR Not Detected (NotDetected) 09/23/22 Unknown Stool EPEC (PCR) Not Detected (NotDetected) 09/23/22 Unknown Stool EAEC (PCR) Not Detected (NotDetected) 09/23/22 Unknown Stl E. histolytica PCR Not Detected (NotDetected) 09/23/22 Unknown Stool Giardia Lamblia PCR Not Detected (NotDetected) 09/23/22 Unknown Stool Salmonella PCR Not Detected (NotDetected) 09/23/22 Unknown Stool Sapovirus (PCR) Not Detected (NotDetected) 09/23/22 Unknown Stl P. shigelloides PCR Not Detected (NotDetected) 09/23/22 Unknown Stl Shigella/EIEC PCR Not Detected (NotDetected) 09/23/[address]enterocolitica PCR Not Detected (NotDetected) 09/23/22 Unknown Stool Vibrio (PCR) Not Detected (NotDetected) 09/23/22 Unknown Stl Vibrio cholerae PCR Not Detected (NotDetected) 09/23/22 Unknown Stl Norovirus GI/GII PCR Not Detected (NotDetected) 09/23/22 Unknown Adenovirus (PCR) Not Detected (NotDetected) 09/20/22 00:13 B. pertussis DNA (PCR) Not Detected (NotDetected) 09/20/22 00:13 B.parapertussis DNA PCR Not Detected (NotDetected) 09/20/22 00:13 Lyme Disease IgG Ab Negative (Negative) 09/20/22 00:10 Lyme Disease IgM Ab Negative (Negative) 09/20/22 00:10 C. pneumoniae DNA (PCR) Not Detected (NotDetected) 09/20/22 00:13 Coronavirus OC43 (PCR) Not Detected (NotDetected) 09/20/22 00:13 Coronavirus HKU1 (PCR) Not Detected (NotDetected) 09/20/22 00:13 Coronavirus 229E (PCR) Not Detected (NotDetected) 09/20/22 00:13 SARS-CoV-2 (PCR) Not Detected (NotDetected) 09/20/22 00:13 Coronavirus NL63 (PCR) Not Detected (NotDetected) 09/20/22 00:13 Human Metapneumovir PCR Not Detected (NotDetected) 09/20/22 00:13 Influenza Type A (PCR) Not Detected (NotDetected) 09/20/22 00:13 Influenza Type B (PCR) Not Detected (NotDetected) 09/20/22 00:13 M. pneumoniae (PCR) Not Detected (NotDetected) 09/20/22 00:13 Parainfluenza 1 (PCR) Not Detected (NotDetected) 09/20/22 00:13 Parainfluenza 2 (PCR) Not Detected (NotDetected) 09/20/22 00:13 Parainfluenza 3 (PCR) Not Detected (NotDetected) 09/20/22 00:13 Parainfluenza 4 (PCR) Not Detected (NotDetected) 09/20/22 00:13 RSV (PCR) Not Detected (NotDetected) 09/20/22 00:13 Entero/Rhino (PCR) Not Detected (NotDetected) 09/20/22 00:13 Impressions KUB X-Ray 09/22/22 11:43 KUB HISTORY: Acute generalized abdominal pain with constipation constipation COMPARISON: Chest radiograph 09/20/2022 FINDINGS: Nonproductive bowel gas pattern. Cholecystectomy. Moderate fecal retention. No renal calculi. No ureteral calculi. No pneumoperitoneum or pneumatosis. Lumbar levoscoliosis. No fracture. Cardiomegaly with left basilar opacities. Partially imaged pacer leads. IMPRESSION: 1. Nonobstructive bowel gas pattern. 2. Moderate fecal retention. ACT 112: Negative or not required by law. The above report was generated using voice recognition software. It may contain grammatical, syntax or spelling errors. Electronically signed by: James Floyd M.D. 09/22/2022 1:50 PM Renal Ultrasound 09/23/22 09:38 RENAL ULTRASOUND CLINICAL HISTORY: Acute kidney injury. COMPARISON STUDY: None. TECHNIQUE: Sonography of the kidneys and the urinary bladder was performed. FINDINGS: The right kidney measures 9.3 cm in maximal dimension and the left measures 9.5 cm. There is no hydronephrosis. Renal echogenicity is increased. No renal calculi are identified by sonography. A few small bilateral renal cysts are noted. Both ureteral jets were identified. Incidental note is made of small bilateral pleural effusions and a small amount of abdominal and pelvic ascites. IMPRESSION: 1. No hydronephrosis. 2. Echogenic kidneys. 3. Small bilateral pleural effusions and a small amount of abdominal and pelvic ascites. ACT 112: Negative or not required by law. Electronically signed by: Mariano Mcnair M.D. 09/23/2022 4:01 PM Chest X-Ray 09/23/22 11:07 SINGLE VIEW CHEST CLINICAL HISTORY: Follow-up congestive heart failure. FINDINGS: An AP, portable, upright chest radiograph is compared to study dated 09/20/2022. A 3-lead cardiac pacemaker is unchanged in position and partially obscures the left mid chest. The heart is enlarged noting atherosclerotic calcification of the thoracic aorta. There is mild pulmonary vascular congestion. There is a left pleural effusion with left basilar consolidation. Atelectasis is noted at the right lung base. No pneumothorax is seen. The skeletal structures are osteopenic. The bony thorax is grossly intact. IMPRESSION: 1. Cardiomegaly and cardiac pacemaker with mild pulmonary vascular congestion. 2. Small left pleural effusion with left basilar consolidation. Correlate clinically for evidence of a superimposed pneumonia/aspiration pneumonitis. ACT 112: Negative or not required by law. Electronically signed by: Dominic Disla M.D. 09/23/2022 11:[address] 09/23/22 14:10 CT SCAN OF THE CHEST WITHOUT IV CONTRAST CLINICAL HISTORY: Dyspnea. COMPARISON STUDY: Chest x-ray dated 09/23/2022. TECHNIQUE: CT scan of the thorax was performed from the thoracic inlet to the upper abdomen. Images are reviewed in the axial, sagittal, and coronal planes. IV contrast was not administered for this examination as per the referring clinician. A dose lowering technique was utilized adhering to the principles of ALARA. CT DOSE: 207.58 mGy.cm FINDINGS: Thyroid: Imaged portions of the thyroid gland are normal in size and attenuation. Thoracic aorta: There is atherosclerotic calcification of the thoracic aorta, which is normal in caliber and demonstrates standard 3-vessel arch anatomy. Heart: A cardiac pacemaker is present in the left chest wall. The heart is enlarged and without pericardial effusion. Enlargement of the main pulmonary art eries suggest pulmonary artery hypertension. Lungs and pleural spaces: There is moderate to severe emphysema. There are right larger than left pleural effusions with dependent atelectasis. There are scattered calcified granulomas. Mild intralobular septal thickening is observed. Mediastinum: There is no mediastinal lymphadenopathy. Gaby: Not well assessed without IV contrast. Axillae: There is no axillary lymphadenopathy. Upper abdomen: There is a small volume of upper abdominal ascites. Partially visualized upper abdominal viscera is otherwise grossly unremarkable. Skeletal structures: The skeletal structures are heterogeneously osteopenic. No lytic or blastic bony lesions are seen. Degenerative change is noted in the shoulders and thoracic spine. Soft tissues: There is body wall edema. IMPRESSION: 1. Cardiomegaly and cardiac pacemaker. Intralobular septal thickening could represent acute versus chronic congestive change. Clinical correlation will be required. 2. Moderate to severe emphysema. 3. Right larger than left pleural effusions with dependent atelectasis. 4. Small volume upper abdominal ascites. 5. Additional findings as above. ACT 112: Negative or not required by law. Electronically signed by: Dominic Disla M.D. 09/23/2022 3:36 PM
[2022-09-24] MEDS ORDERED: HYDROmorphone INJ 0.5 MG/0.5 ML SYR IV PRN ×2 (13:19→13:59)
[2022-09-24] MEDS: METOPROLOL SUCC 25MG EXT REL TAB PO SCH (20:21)
[2022-09-25] MEDS: LOTEMAX~ORDER AWAITING ACTION SCH ×4 (01:06→22:51)
[2022-09-25] MEDS: FUROSEMIDE INJ 20 MG/2 ML VIAL IV SCH ×3 (01:53→17:29)
[2022-09-25] MEDS: ACETAMINOPHEN 325 MG TAB PO PRN ×2 (02:42→18:15)
[2022-09-25] MEDS: UREA (UREA-NA) 15 GM PACK PO SCH ×2 (08:46→19:50)
[2022-09-25] MEDS: DOCUSATE SODIUM 100 MG CAP PO SCH ×2 (08:46→19:50)
[2022-09-25] MEDS: PANTOprazole 40 MG TAB PO SCH ×2 (08:46→19:49)
[2022-09-25] MEDS: ADVANCED PROBIOTIC 1250 MG CAPSULE PO SCH (08:47)
[2022-09-25] MEDS: HEPARIN SOD 5,000 UNIT/0.5 ML VIAL SQ SCH ×2 (08:47→19:50)
[2022-09-25] MEDS: AMIODARONE 200 MG TAB PO SCH (08:48)
--- NOTE | 2022-09-25 13:13 | Hospitalist Progress Note ---
Date of Service September 25, 2022 Assessment & Plan (1) Diarrhea: Plan: 77-year-old female with past med significant for hyperlipidemia, COPD chronic systolic CHF EF 15% 2018 improved to 45% in 2011 and in 2019 but again worsened to 30 to 34% with PVCs in June 2020, s/p biventricular pacemaker, left bundle branch block history of bradycardia, history of A-fib, irritable bowel syndrome, chronic kidney disease stage III, generalized osteoarthritis, history of tobacco abuse presents with diarrhea for last 2 3 days, nausea and also feeling short of breath. Acute on chronic systolic heart failure Acute kidney injury Hyponatremia Patient with a history of HFrEF presented to the ED with shortness of breath and diarrhea. Was started on IV fluids. Developed volume overload. Last chest x-ray reviewed; increase in pulmonary edema. Labs reviewed her creatinine is uptrending along with potassium consistent with progressive SAM Sodium has down trended to 123 Also, liver enzymes have up trended as well. See palliative care note She reports that she had anticipated this problem for very long time. She understand that she has ongoing multiorgan failure. She reports that she wants to be made as comfortable as possible. No lab work, symptomatic care. Continuing IV Lasix for now. No escalation of care Updated her brother (brown- [phone]) over the phone as per patient's request on 09/25/2022. Please note the above document was generated using voice recognition software. It may contain grammatical, syntax or spelling errors. Any formal questions or concerns about the content, text or information contained within the body of this dictation should be directly addressed to the provider for clarification (2) SAM (acute kidney injury): Admission and Anticipated Discharge Date Admission Date: September 20, 2022 Subjective Patient seen and examined at bedside multiple times. She appears to be comfortable; not in distress. Review of Systems Review of Systems: All systems reviewed & are unremarkable except as noted in Subjective Physical Exam Physical Exam: General Appearance: Thin, frail, elderly, appears tired. Head: normocephalic, Atraumatic Eyes: normal inspection, EOMI Neck: supple, Trachea midline Respiratory/Chest: Normal breath sounds, CTA, No accessory muscle use Cardiovascular: S1, S2, +murmur Abdomen/GI:Soft, Non tender, Bowel sounds present Extremities/Musculoskeletal:normal inspection, minimal edema. Neurologic/Psych:AAOX3, grossly no focal neurological deficits Skin: normal color, warm Results & Data Results & Data Vital Signs (Past 12 Hours) Vital Signs Temp Pulse Pulse Resp BP BP Pulse Ox 09/25/22 11:25 36.3 C L 72 20 105/69 93 09/25/22 08:05 09/25/22 07:49 36.3 C L 72 20 95/61 L 92 09/25/22 07:14 70 09/25/22 02:48 36.7 C 76 16 104/72 94 09/25/22 01:30 70 O2 Del Method O2 Flow Rate 09/25/22 11:25 Nasal Cannula 1 09/25/22 08:05 Nasal Cannula 1 09/25/22 07:49 Nasal Cannula 1 09/25/22 07:14 09/25/22 02:48 Nasal Cannula 1 09/25/22 01:30 Laboratory Results Laboratory Results WBC 7.97 K/ul (4.8-10.8) 09/24/22 07:04 RBC 3.81 M/uL (4.20-5.40) L 09/24/22 07:04 Hgb 12.3 g/dl (12.0-16.0) 09/24/22 07:04 Hct 36.7 % (37.0-47.0) L 09/24/22 07:04 MCV 96.3 fL (80.0-100.0) 09/24/22 07:04 MCH 32.3 pg (25.0-34.0) 09/24/22 07:04 MCHC 33.5 g/dL (32.0-36.0) 09/24/22 07:04 RDW Std Deviation 49.3 fL (36.4-46.3) H 09/24/22 07:04 RDW Coeff of Heena 14.4 % (11.5-14.5) 09/24/22 07:04 Plt Count 106 K/uL (130-400) L 09/24/22 07:04 MPV 11.6 fL (9.4-12.4) 09/24/22 07:04 Immature Gran % (Auto) 0.8 % 09/24/22 07:04 Neut % (Auto) 84.0 % 09/24/22 07:04 Lymph % (Auto) 5.9 % 09/24/22 07:04 [place] % (Auto) 9.2 % 09/24/22 07:04 Eos % (Auto) 0.0 % 09/24/22 07:04 Baso % (Auto) 0.1 % 09/24/22 07:04 Neut # (Auto) 6.70 K/uL (1.40-6.50) H 09/24/22 07:04 Lymph # (Auto) 0.47 K/uL (1.2-3.4) L 09/24/22 07:04 [place] # (Auto) 0.73 K/uL (0.11-0.59) H 09/24/22 07:04 Eos # (Auto) 0.00 K/uL (0-0.50) 09/24/22 07:04 Baso # (Auto) 0.01 K/uL (0-0.2) 09/24/22 07:04 Immature Gran # (Auto) 0.06 K/uL (0.01-0.20) 09/24/22 07:04 Absolute Nucleated RBC 0.02 K/uL (0-0.12) 09/20/22 06:58 Nucleated RBC % (auto) 0.4 % 09/20/22 06:58 ABG pH 7.36 (7.35-7.45) 09/24/22 09:46 ABG pCO2 29 mmHg (35-46) L 09/24/22 09:46 ABG pO2 80 mmHg (80-95) 09/24/22 09:46 ABG HCO3 16 mmol/L (19-24) L 09/24/22 09:46 ABG O2 Saturation 95.0 % (90-95) 09/24/22 09:46 ABG Base Excess -7.7 mEq/L (-9-1.8) 09/24/22 09:46 Eulogio Test POS (Pos) 09/24/22 09:46 Barometric Pressure Cancelled 09/24/22 07:02 Oxygen Given ROOM AIR 09/24/22 09:46 Sodium 123 mmol/L (136-145) L 09/24/22 07:04 Potassium 5.5 mmol/L (3.5-5.1) H 09/24/22 07:04 Chloride 93 mmol/L (98-107) L 09/24/22 07:04 Carbon Dioxide 18 mmol/L (21-32) L 09/24/22 07:04 Anion Gap 12 (3-11) H 09/24/22 07:04 BUN 128 mg/dl (6-23) H D 09/24/22 07:04 Creatinine 2.56 mg/dl (0.6-1.2) H 09/24/22 07:04 Est Cr Clr Drug Dosing 14.3 ml/min 09/24/22 07:04 Est GFR ( Amer) 20.1 ml/min 09/24/22 07:04 Est GFR (Non-Af Amer) 17.3 ml/min 09/24/22 07:04 BUN/Creatinine Ratio 50.0 (10-20) H 09/24/22 07:04 Glucose 97 mg/dl (70-99(Fasting)) 09/24/22 07:04 POC Glucose 89 mg/dl (70-99) 09/24/22 06:20 Lactate 2.9 mmol/L (0.4-2.0) H* 09/24/22 07:04 Calcium 9.1 mg/dl (8.6-10.3) 09/24/22 07:04 Magnesium 2.2 mg/dl (1.7-2.4) 09/21/22 06:53 Total Bilirubin 1.4 mg/dl (0.2-1.0) H 09/24/22 07:04 AST 722 U/L (13-39) H 09/24/22 07:04 ALT 803 U/L (7-52) H 09/24/22 07:04 Alkaline Phosphatase 110 U/L (34-104) H 09/24/22 07:04 Ammonia 67.0 umol/L (18-72) 09/24/22 07:04 Troponin I High Sens 52.9 pg/ml (0-14) H* 09/20/22 19:09 B-Natriuretic Peptide 3035 pg/ml (0-100) H 09/20/22 00:10 Total Protein 6.2 gm/dl (6.0-8.3) 09/24/22 07:04 Albumin 4.0 gm/dl (3.4-5.0) 09/24/22 07:04 Globulin 2.2 gm/dl (2.5-4.0) L 09/24/22 07:04 Albumin/Globulin Ratio 1.8 (0.9-2) 09/24/22 07:04 Lipase 13 U/L (11-82) 09/20/22 00:10 Procalcitonin 0.09 ng/ml (0-0.5) 09/21/22 06:53 TSH 2.992 uIu/ml (0.300-4.500) 09/20/22 06:58 Free T4 2.48 ng/dl (0.61-1.60) H 09/20/22 00:10 Urine Color Cascade 09/23/22 18:00 Urine Appearance Cloudy (Clear) A 09/23/22 18:00 Urine pH 5.0 (4.5-7.5) 09/23/22 18:00 Ur Specific [place] 1.017 (1.000-1.030) 09/23/22 18:00 Urine Protein 1+ (Negative) H 09/23/22 18:00 Urine Glucose (UA) Negative (Negative) 09/23/22 18:00 Urine Ketones Negative (Negative) 09/23/22 18:00 Urine Blood 1+ (Negative) H 09/23/22 18:00 Urine Nitrite Positive (Negative) A 09/23/22 18:00 Urine Bilirubin Negative (Negative) 09/23/22 18:00 Urine Urobilinogen Negative (Negative) 09/23/22 18:00 Ur Leukocyte Esterase 2+ (Negative) H 09/23/22 18:00 Urine WBC (Auto) 10-30 /hpf (0-5) H 09/23/22 18:00 Urine RBC (Auto) 0-4 /hpf (0-4) 09/23/22 18:00 U Hyaline Cast (Auto) >30 /lpf (0-5) H 09/23/22 18:00 U Epithel Cells (Auto) >30 /lpf (0-5) H 09/23/22 18:00 Urine Bacteria (Auto) 1+ (Negative) H 09/23/22 18:00 Urine Mucus Present (None Prsent) A 09/23/22 18:00 Urine Yeast Not Reportable 09/23/22 18:00 Urine Osmolality 460 mOsm/kg (500-800) L 09/23/22 18:00 Ur Random Creatinine 90.3 mg/dl 09/23/22 18:00 Ur Random Sodium 26 mmol/L 09/23/22 18:00 Stl C. cayetanensis PCR Not Detected (NotDetected) 09/23/22 Unknown Stool Rotavirus A PCR Not Detected (NotDetected) 09/23/22 Unknown Stl Adenov F 40/41 PCR Not Detected (NotDetected) 09/23/22 Unknown Stool Astrovirus (PCR) Not Detected (NotDetected) 09/23/22 Unknown Stool Campylobacter PCR Not Detected (NotDetected) 09/23/22 Unknown Stl C. diff Tox B Gene Negative Cdiff Gene (Neg) 09/23/22 Unknown Stool Cryptosporidium PCR Not Detected (NotDetected) 09/23/22 Unknown Stl E.coli Shiga Tox PCR Not Detected (NotDetected) 09/23/22 Unknown Stl Enterotoxigenic E PCR Not Detected (NotDetected) 09/23/22 Unknown Stool EPEC (PCR) Not Detected (NotDetected) 09/23/22 Unknown Stool EAEC (PCR) Not Detected (NotDetected) 09/23/22 Unknown Stl E. histolytica PCR Not Detected (NotDetected) 09/23/22 Unknown Stool Giardia Lamblia PCR Not Detected (NotDetected) 09/23/22 Unknown Stool Salmonella PCR Not Detected (NotDetected) 09/23/22 Unknown Stool Sapovirus (PCR) Not Detected (NotDetected) 09/23/22 Unknown Stl P. shigelloides PCR Not Detected (NotDetected) 09/23/22 Unknown Stl Shigella/EIEC PCR Not Detected (NotDetected) 09/23/[address]enterocolitica PCR Not Detected (NotDetected) 09/23/22 Unknown Stool Vibrio (PCR) Not Detected (NotDetected) 09/23/22 Unknown Stl Vibrio cholerae PCR Not Detected (NotDetected) 09/23/22 Unknown Stl Norovirus GI/GII PCR Not Detected (NotDetected) 09/23/22 Unknown Adenovirus (PCR) Not Detected (NotDetected) 09/20/22 00:13 B. pertussis DNA (PCR) Not Detected (NotDetected) 09/20/22 00:13 B.parapertussis DNA PCR Not Detected (NotDetected) 09/20/22 00:13 Lyme Disease IgG Ab Negative (Negative) 09/20/22 00:10 Lyme Disease IgM Ab Negative (Negative) 09/20/22 00:10 C. pneumoniae DNA (PCR) Not Detected (NotDetected) 09/20/22 00:13 Coronavirus OC43 (PCR) Not Detected (NotDetected) 09/20/22 00:13 Coronavirus HKU1 (PCR) Not Detected (NotDetected) 09/20/22 00:13 Coronavirus 229E (PCR) Not Detected (NotDetected) 09/20/22 00:13 SARS-CoV-2 (PCR) Not Detected (NotDetected) 09/20/22 00:13 Coronavirus NL63 (PCR) Not Detected (NotDetected) 09/20/22 00:13 Human Metapneumovir PCR Not Detected (NotDetected) 09/20/22 00:13 Influenza Type A (PCR) Not Detected (NotDetected) 09/20/22 00:13 Influenza Type B (PCR) Not Detected (NotDetected) 09/20/22 00:13 M. pneumoniae (PCR) Not Detected (NotDetected) 09/20/22 00:13 Parainfluenza 1 (PCR) Not Detected (NotDetected) 09/20/22 00:13 Parainfluenza 2 (PCR) Not Detected (NotDetected) 09/20/22 00:13 Parainfluenza 3 (PCR) Not Detected (NotDetected) 09/20/22 00:13 Parainfluenza 4 (PCR) Not Detected (NotDetected) 09/20/22 00:13 RSV (PCR) Not Detected (NotDetected) 09/20/22 00:13 Entero/Rhino (PCR) Not Detected (NotDetected) 09/20/22 00:13 Impressions KUB X-Ray 09/22/22 11:43 KUB HISTORY: Acute generalized abdominal pain with constipation constipation COMPARISON: Chest radiograph 09/20/2022 FINDINGS: Nonproductive bowel gas pattern. Cholecystectomy. Moderate fecal retention. No renal calculi. No ureteral calculi. No pneumoperitoneum or pneumatosis. Lumbar levoscoliosis. No fracture. Cardiomegaly with left basilar opacities. Partially imaged pacer leads. IMPRESSION: 1. Nonobstructive bowel gas pattern. 2. Moderate fecal retention. ACT 112: Negative or not required by law. The above report was generated using voice recognition software. It may contain grammatical, syntax or spelling errors. Electronically signed by: James Floyd M.D. 09/22/2022 1:50 PM Renal Ultrasound 09/23/22 09:38 RENAL ULTRASOUND CLINICAL HISTORY: Acute kidney injury. COMPARISON STUDY: None. TECHNIQUE: Sonography of the kidneys and the urinary bladder was performed. FINDINGS: The right kidney measures 9.3 cm in maximal dimension and the left measures 9.5 cm. There is no hydronephrosis. Renal echogenicity is increased. No renal calculi are identified by sonography. A few small bilateral renal cysts are noted. Both ureteral jets were identified. Incidental note is made of small bilateral pleural effusions and a small amount of abdominal and pelvic ascites. IMPRESSION: 1. No hydronephrosis. 2. Echogenic kidneys. 3. Small bilateral pleural effusions and a small amount of abdominal and pelvic ascites. ACT 112: Negative or not required by law. Electronically signed by: Mariano Mcnair M.D. 09/23/2022 4:01 PM Chest X-Ray 09/23/22 11:07 SINGLE VIEW CHEST CLINICAL HISTORY: Follow-up congestive heart failure. FINDINGS: An AP, portable, upright chest radiograph is compared to study dated 09/20/2022. A 3-lead cardiac pacemaker is unchanged in position and partially obscures the left mid chest. The heart is enlarged noting atherosclerotic calcification of the thoracic aorta. There is mild pulmonary vascular congestion. There is a left pleural effusion with left basilar consolidation. Atelectasis is noted at the right lung base. No pneumothorax is seen. The skeletal structures are osteopenic. The bony thorax is grossly intact. IMPRESSION: 1. Cardiomegaly and cardiac pacemaker with mild pulmonary vascular congestion. 2. Small left pleural effusion with left basilar consolidation. Correlate clinically for evidence of a superimposed pneumonia/aspiration pneumonitis. ACT 112: Negative or not required by law. Electronically signed by: Dominic Disla M.D. 09/23/2022 11:[address] 09/23/22 14:10 CT SCAN OF THE CHEST WITHOUT IV CONTRAST CLINICAL HISTORY: Dyspnea. COMPARISON STUDY: Chest x-ray dated 09/23/2022. TECHNIQUE: CT scan of the thorax was performed from the thoracic inlet to the upper abdomen. Images are reviewed in the axial, sagittal, and coronal planes. IV contrast was not administered for this examination as per the referring clinician. A dose lowering technique was utilized adhering to the principles of ALARA. CT DOSE: 207.58 mGy.cm FINDINGS: Thyroid: Imaged portions of the thyroid gland are normal in size and attenuation. Thoracic aorta: There is atherosclerotic calcification of the thoracic aorta, which is normal in caliber and demonstrates standard 3-vessel arch anatomy. Heart: A cardiac pacemaker is present in the left chest wall. The heart is enlarged and without pericardial effusion. Enlargement of the main pulmonary arteries suggest pulmonary artery hypertension. Lungs and pleural spaces: There is moderate to severe emphysema. There are right larger than left pleural effusions with dependent atelectasis. There are scattered calcified granulomas. Mild intralobular septal thickening is observed. Mediastinum: There is no mediastinal lymphadenopathy. Gaby: Not well assessed without IV contrast. Axillae: There is no axillary lymphadenopathy. Upper abdomen: There is a small volume of upper abdominal ascites. Partially visualized upper abdominal viscera is otherwise grossly unremarkable. Skeletal structures: The skeletal structures are heterogeneously osteopenic. No lytic or blastic bony lesions are seen. Degenerative change is noted in the shoulders and thoracic spine. Soft tissues: There is body wall edema. IMPRESSION: 1. Cardiomegaly and cardiac pacemaker. Intralobular septal thickening could represent acute versus chronic congestive change. Clinical correlation will be required. 2. Moderate to severe emphysema. 3. Right larger than left pleural effusions with dependent atelectasis. 4. Small volume upper abdominal ascites. 5. Additional findings as above. ACT 112: Negative or not required by law. Electronically signed by: Dominic Disla M.D. 09/23/2022 3:36 PM
[2022-09-25] MEDS: HYDROmorphone INJ 1 MG/ML SYRINGE IV PRN ×2 (19:44→23:23)
[2022-09-25] MEDS: METOPROLOL SUCC 25MG EXT REL TAB PO SCH (19:55)
[2022-09-25] MEDS ORDERED: SODIUM CHLORIDE 0.9% 500 ML IV SCH (20:30)
[2022-09-26] MEDS: FUROSEMIDE INJ 20 MG/2 ML VIAL IV SCH (02:10)
--- NOTE | 2022-09-26 05:48 | Death Pronouncement Note ---
Date of Service September 26, 2022 Pronouncement Note Admission Date September 20, 2022 Date and Time of Date of : 09/26/22 Time of : 04:10 Additional Data Confirmation of : no pulse, no respirations, no heart sounds and pupils fixed and dilated Family: contacted Attending physician: Po Cooley MD
--- NOTE | 2022-09-26 11:44 | Discharge Summary ---
Date of Service September 26, 2022 Admission HPI Per Admitting Provider 77-year-old female with past med significant for hyperlipidemia, COPD chronic systolic CHF EF 15% 2018 improved to 45% in 2011 and in 2019 but again worsened to 30 to 34% with PVCs in June 2020, s/p biventricular pacemaker, left bundle branch block history of bradycardia, history of A-fib, irritable bowel syndrome, chronic kidney disease stage III, generalized osteoarthritis, history of tobacco abuse presents with diarrhea for last 2 3 days, nausea and also feeling short of breath. Because nausea and diarrhea she did not not eating much. Currently diarrhea seem to improved. No abdominal pain. Currently no chest pain. Currently on 2 L oxygen saturating okay. Denies any headache. No earache and some runny nose and sore throat. She tested for COVID and at home and was negative as per patient. Afebrile. Micturating okay. Currently resting comfortably and hemodynamically stable Past medical history as mentioned above Past surgical history colonoscopy, EGD with endoscopic ultrasound, lumbosacral s pine injection, injection eye drug Social history former smoker quit in 2001 smoked half pack a day for 30 years, no alcohol use, no drug use Family history mother had heart disorder, macular degeneration, of aplastic anemia at age 82. Father had diabetes Admission Exam Per Admitting Provider General- Not in distress Head- atraumatic Eyes- PERRL ENT- oropharynx clear Neck- supple, no JVD Lungs- clear to auscultation and percussion, mild bibasilar crackles Heart- regular rate rhythm; no murmur, no gallop, Abdomen- normal bowel sounds, soft, nontender, no distension Extremities- no pretibial edema, no erythema seen Neuro- alert, oriented x 3; PERRL no facial palsy; no dysarthria; obeys commands, moves extremities Skin- warm & dry Principal Diagnosis Acute on chronic systolic heart failure Acute kidney injury Hyponatremia Discharge Exam Patient on September 26, 2022 at 4:10 am Discharge Data Allergies Allergy/AdvReac Type Severity Reaction Status Date / Time bee venom protein (honey bee) Allergy Severe ANAPHYLAXIS Verified 09/20/22 01:06 nickel Allergy Mild Redness of Verified 09/20/22 01:06 Skin Iodinated Contrast Media Allergy Unknown SOB,CRACKLI Verified 09/20/22 01:06 NG,WHEEZING Sulfa (Sulfonamide Allergy Unknown HIVES Verified 09/20/22 01:06 Antibiotics) Consultations 09/20/22 02:08 ED Decision to Admit Stat 09/23/22 09:28 Consult Nephrology Routine 09/23/22 11:55 Consult Cardiology Routine 09/24/22 10:39 Consult Palliative Care Routine Ordered Studies 09/23/22 09:38 US Renal Bladder [US renal/blad retro comp] Routine 09/23/22 14:10 CT chest diagnostic wo con Urgent Hospital Course (1) Diarrhea: Acute on chronic systolic heart failure Acute kidney injury Hyponatremia Patient with a history of HFrEF presented to the ED with shortness of breath and diarrhea. Patient developed progressive multiorgan failure due to heart failure leading to kidney injury and liver injury. Goals of care discussion was done with the patient; she did not want any interventions. She wanted to be made as comfortable as possible. She was transition to comfort care measures. Patient on September 26, 2022 at 4:10 am Please note the above document was generated using voice recognition software. It may contain grammatical, syntax or spelling errors. Any formal questions or concerns about the content, text or information contained within the body of this dictation should be directly addressed to the provider for clarification (2) SAM (acute kidney injury): Total Time Total Time Spent Total Time Spent (In Minutes): 5 Total Time Includes: Examination of the Patient, Discharge Planning, Medication Reconciliation, Communication With Other Providers and Other Discharge Plan Discharge Items Patient Disposition: Other Date/Time: 09/26/22 04:10
== END 2022-09-26 05:23 | disposition expired | DRG 291 ==
LOC: ED 23:40 → EDINP 09-20 04:07 → SUATTDRO 09-20 04:07 → EDINP 09-20 04:49 → 2N 09-20 09:39 → 3N 09-25 22:32